=== PATIENT | female | born 1965 | race African-American/Black ===

== ENCOUNTER 2023-01-01 21:42 | Emergency (ER) | payer MEDICAID, OTHER ==
[~2023-01-01] VITALS: Ht 162.6 cm; Wt 82.7 kg
[2023-01-01 22:39] LABS: Eosinophils # (auto) 0 10 ^3/uL (0-0.8); Eosinophils % (auto) 0.1 % (0.0-7.0); Mean Corpuscular Hemoglobin 22.9 pg (28.0-32.0); Monocytes # (auto) 0.1 10 ^3/uL (0-1.3)
[2023-01-01 22:40] LABS: Basophils # (auto) 0 10 ^3/uL (0-0.2); Basophils % (auto) 0.4 % (0.0-2.0); Hematocrit 37.6 % (36.0-46.0); Hemoglobin 12.2 g/dL (12.2-16.2); Lymphocytes # (auto) 0.7 10 ^3/uL (0.4-5.4); Lymphocytes % (auto) 8.7 % (10.0-50.0); Mean Corpuscular Hgb Conc. 32.3 g/dL (32.0-36.0); Mean Corpuscular Volume 70.9 fL (80.0-100.0); Monocytes % (auto) 1.4 % (0.0-12.0); Neutrophils # (auto) 7.2 10 ^3/uL (1.6-8.6); Neutrophils % (auto) 89.4 % (37.0-80.0); Nucleated Red Blood Cells % 0.2 %; Red Blood Cells 5.31 10^6/uL (4.0-5.20); Red Cell Distribution Width 17.7 % (11.8-14.3)
[2023-01-01 22:51] LABS: Albumin 3.9 g/dL (3.4-5.0); Calcium 9.5 mg/dL (8.5-10.1); Potassium 5.4 mmol/L (3.5-5.1)
[2023-01-01 22:54] LABS: BUN/Creatinine Ratio 19.6 (10.0-20.0); Bilirubin, Total 0.4 mg/dL (0.2-1.0); Total Protein 8.2 g/dL (6.4-8.2)
[2023-01-01 23:20] VITALS: BP 143/70
== END 2023-01-01 23:29 | disposition home or self-care (01) ==
LOC: ER 21:42
DX: E11.65 Type 2 diabetes mellitus with hyperglycemia (principal); N28.9 Disorder of kidney and ureter, unspecified; I10 Essential (primary) hypertension; Z90.710 Acquired absence of both cervix and uterus; Z88.5 Allergy status to narcotic agent; Z88.8 Allergy status to other drugs, medicaments and biological substances
CPT/HCPCS: 36415; 80053; 82962; 85025

== ENCOUNTER 2025-04-21 22:03 | Inpatient (IN) | payer MEDICAID, OTHER ==
[~2025-04-21] VITALS: Ht 162.6 cm; Wt 81.7 kg
--- NOTE | 2025-04-21 22:29 | ED.PDOC ---
General HPI Comments 59-year-old female came to ER for flank pains. Patient states for the past 3 weeks she has been having intermittent episodes of left flank pains, radiating to her left lower quadrant area, described as dull, sharp intermittent. Patient also complaining of nausea and vomiting, but denies any urinary symptoms such as dysuria or gross hematuria. Chief Complaint: Flank Pain Time Seen by MD: 22:29 Reviewed notes: Nurses Notes Allergies: Coded Allergies: Hydrocodone (Verified Allergy, Unknown, 04/21/25) Information Source: Patient Mode of Arrival: Ambulatory Severity: Moderate Inability to void: Mild Timing: Weeks Duration: Intermittent Has not urinated for: Minutes Onset: Spontaneous Symptoms: Other (Left flank pain) History of: UTI Location: (L)Flank associated signs and symptoms: Abdominal Pain, Nausea, Vomiting, Flank Pain Past Medical History PAST MEDICAL HISTORY: UTI'S Surgical History: Denies all surgeries [employer] History: Denies all [employer] Hx Family History Family History: Reviewed,noncontributory to illness Social History Smoker: Non-Smoker Alcohol: Denies ETOH Use Drugs: Denies Drug Use Lives In: Home Constitutional: denies: chills, diaphoresis, fatigue, fever, malaise, sweats, weakness, others EENTM: denies: blurred vision, double vision, ear bleeding, ear discharge, ear drainage, ear pain, ear ringing, eye pain, eye redness, hearing loss, mouth pain, mouth swelling, nasal discharge, nose bleeding, nose congestion, nose pain, photophobia, tearing, throat pain, throat swelling, voice changes, others Respiratory: denies: cough, hemoptysis, orthopnea, SOB at rest, shortness of breath, SOB with excertion, stridor, wheezing, others Cardiovascular: denies: chest pain, dizzy spells, diaphoresis, Dyspnea on exertion, edema, irregular heart beat, left arm pain, lightheadedness, palpitations, PND, syncope, others Gastrointestinal: reports: abdominal pain (Left lower quadrant), nausea, vomiting; denies: abdomen distended, blood streaked bowels, constipated, diarrhea, dysphagia, difficulty swallowing, hematemesis, melena, poor appetite, poor fluid intake, rectal bleeding, rectal pain, others Genitourinary: reports: flank pain (L); denies: abnormal vagina bleeding, burning, dyspareunia, dysuria, frequency, hematuria, incontinence, pain, , vagina discharge, urgency, others Neurological: denies: dizziness, fainting, headache, left sided numbness, left sided weakness, numbness, paresthesia, pre-existing deficit, right sided numbness, right sided weakness, seizure, speech problems, tingling, tremors, weakness, others Musculoskeletal: denies: back pain, gout, joint pain, joint swelling, muscle pain, muscle stiffness, neck pain, others Integumetry: denies: bruises, change in color, change in hair/nails, dryness, laceration, lesions, lumps, rash, wounds, others Allergic/Immunocompromised: denies: Difficulty Healing, Frequent Infections, Hives, Itching, others Hematologic/Lymphatic: denies: anemia, blood clots, easy bleeding, easy bruising, swollen glands, others Endocrine: denies: excessive hunger, excessive sweating, excessive thirst, excessive urination, flushing, intolerance to cold, intolerance to heat, unexplained weight gain, unexplained weight loss, others Psychiatric: denies: anxiety, bipolar disorder, depression, hopeless, panic disorder, schizophrenia, sleepless, suicidal, others Physical Exam General Appearance: No Apparent Distress, Normal HEENT: Normal ENT Inspection, Pharynx Normal, TMs Normal Neck: Full Range of Motion, Non-Tender, Normal, Normal Inspection Respiratory: Chest Non-Tender, Lungs Clear, No Accessory Muscle Use, No Respiratory Distress, Normal Breath Sounds Cardiovascular: No Edema, No JVD, No Murmur, No Gallop, Normal Peripheral Pulses, Regular Rate/Rhythm Breast Exam: Deferred Gastrointestinal: No Organomegaly, Non Tender, No Pulsatile Mass, Normal Bowel Sounds, Soft Genitalia: Deferred Pelvic: Deferred Rectal: Deferred Extremities: No calf tenderness, Normal capillary refill, Normal inspection, Normal range of motion, Non-tender, No pedal edema Musculoskeletal : Apperance: Normal Neurologic: Alert, camp coordinator II-XII nml as Tested, No Motor Deficits, Normal Affect, Normal Mood, No Sensory Deficits Cerebellar Function: Normal Reflexes: Normal Skin: Dry, Normal Color, Warm Lymphatic: No Adenopathy Was a procedure done? Was a procedure done?: No Differential Diagnosis Kidney stone (Female): Musculoskeletal pain, Pancreatitis, Pyelonephritis, Renal failure, Strain, Urinary obstruction, Urolithiasis Urinary Problem (Female): Pyelonephritis, Urinary retention, Urolithiasis, UTI X-Ray, Labs, Meds, VS Vital Signs Date Time Temp Pulse Resp B/P (MAP) Pulse Ox O2 Delivery O2 Flow Rate FiO2 04/21/25 22:06 99.9 121 18 139/75 97 99.9 Lab Test 04/21/25 22:39 04/21/25 22:23 Range/Units White Blood Count 10.6 4.4-10.8 10^3/uL Red Blood Count 4.58 4.0-5.20 10^6/uL Hemoglobin 9.5 L 12.2-16.2 g/dL Hematocrit 29.9 L 36.0-46.0 % Mean Corpuscular Volume 65.3 L 80.0-100.0 fL Mean Corpuscular Hemoglobin 20.7 L 28.0-32.0 pg Mean Corpuscular Hemoglobin Concent 31.7 L 32.0-36.0 g/dL Red Cell Distribution Width 19.9 H 11.8-14.3 % Platelet Count 367 140-450 10^3/uL Mean Platelet Volume 7.4 6.9-10.8 fL Neutrophils (%) (Auto) 70.3 37.0-80.0 % Lymphocytes (%) (Auto) 20.0 10.0-50.0 % Monocytes (%) (Auto) 8.5 0.0-12.0 % Eosinophils (%) (Auto) 0.8 0.0-7.0 % Basophils (%) (Auto) 0.4 0.0-2.0 % Neutrophils # (Auto) 7.5 1.6-8.6 10 ^3/uL Lymphocytes # (Auto) 2.1 0.4-5.4 10 ^3/uL Monocytes # (Auto) 0.9 0-1.3 10 ^3/uL Eosinophils # (Auto) 0.1 0-0.8 10 ^3/uL Basophils # (Auto) 0 0-0.2 10 ^3/uL Nucleated Red Blood Cells 0.0 % Sodium Level 131 L 136-145 mmol/L Potassium Level 4.1 3.5-5.1 mmol/L Chloride Level 97 L 98-107 mmol/L Carbon Dioxide Level 25 20-31 mmol/L Anion Gap 9 5-15 Blood Urea Nitrogen 13 9-23 mg/dL Creatinine 1.33 H 0.550-1.02 mg/dL Glomerular Filtration Rate Calc 46 >90 mL/min BUN/Creatinine Ratio 9.8 L 10.0-20.0 Serum Glucose 163 H 74-106 mg/dL Calcium Level 9.1 8.7-10.4 mg/dL Total Bilirubin 0.7 0.2-1.0 mg/dL Aspartate Amino Transferase (AST) 30 13-40 U/L Alanine Aminotransferase (ALT) 31 7-40 U/L Alkaline Phosphatase 97 46-116 U/L Total Protein 8.3 H 5.7-8.2 g/dL Albumin 4.5 3.2-4.8 g/dL Lipase 32 12-53 U/L Urine Color Light-yellow Yellow Urine Clarity Clear Clear Urine pH 6.0 5.0-9.0 Urine Specific [place] 1.020 1.001-1.035 Urine Protein Negative Negative Urine Ketones Negative Negative Urine Blood Negative Negative /uL Urine Nitrite Negative Negative Urine Bilirubin Negative Negative Urine Urobilinogen Normal Negative mg/dL Urine Leukocyte Esterase Negative Negative /uL Urine RBC 1 0 - 4 /hpf Urine Microscopic WBC 2 0-5 /HPF Urine Squamous Epithelial Cells Few <5 /hpf Urine Bacteria Few H None Seen /hpf Urine Glucose 4+ H Normal mg/dL PROCEDURE(s): ABPL - CT AB PEL WO CON-NO ORAL OR IV REASON: left flank pain ORDER NUMBER(s): [id number], ACCESSION NUMBER(s): [id number] CLINICAL HISTORY: left flank pain TECHNIQUE: CT of the abdomen and pelvis was performed without intravenous contrast. This exam was performed according to our departmental dose optimization program. Up-to-date CT equipment and radiation dose reduction techniques are utilized as appropriate. 8.19 CTDI: 8.19 DLP: 472.49 WID: COMPARISON: None FINDINGS: Lower Thorax: Mild calcified coronary artery disease. Normal-sized heart. Lung bases are clear. Liver and Biliary system: Unremarkable. Spleen: Unremarkable. Adrenal Glands and Kidneys: Unremarkable. Pancreas and Retroperitoneum: Unremarkable. Aorta and Major Vessels: Aortoiliac vessels are normal in caliber containing mild calcified atherosclerotic plaque. Bowel, Mesentery and Peritoneal space: Normal caliber small and large bowel. Normal appendix. Circumferential wall thickening of the distal descending colon with pericolonic soft tissue stranding. There is a thick-walled outpouching or collection to the left of the descending colon measuring 3.3 x 3.7 x 5.2 cm on series 2, image 53 and series 601, image 46. There are mildly prominent lymph nodes adjacent to this inflamed segment of colon. No free air Pelvis: Unremarkable. Abdominal wall and Osseous Structures: Multilevel lower thoracic and lumbar spondylosis. No destructive osseous lesion small fat containing umbilical hernia. IMPRESSION: Circumferential wall thickening of a segment of distal descending colon with pericolonic stranding. There is a thick walled outpouching or collection to the left of the descending colon measuring up to 5.2 cm. This could reflect pericolonic abscess associated with acute diverticulitis or colitis. A mass is also a consideration though less likely. Close follow-up CT recommended after appropriate course of medical therapy. Alternatively colonoscopy recommended if not already recently performed. Mild calcified coronary artery disease visualized. Time of 1ST Reevaluation: 22:27 Reevaluation 1ST: Unchanged Patient Education/Counseling: Diagnosis, Treatment Family Education/Counseling: No Family Present SEPSIS Sepsis Screen Date sepsis recognized/suspect: Apr 21, 2025 Time Sepsis recognized/suspect: 2205 Recent Procedure: No On Antibiotic Therapy: No Respiratory Rate >20: No Heart Rate >90: Yes Temp<36 C (96.8 F) or >38.3 C: No SBP <90 or MAP <65 mmHG: No New Acute Mental Status Change: No Is the patient on CPAP, BIPAP,: No Physician Orders Ct Ab Pel Wo Con-No Oral Or Iv (04/21/25 22:23) Blood Culture (04/21/25 23:40) Lactic Acid W/ Reflex Order (04/21/25 23:40) Ceftriaxone Ivpb Rocephin (04/21/25 23:45) Metronidazole Ivpb Flagyl (04/21/25 23:45) Vital Signs Date Time Temp Pulse Resp B/P (MAP) Pulse Ox O2 Delivery O2 Flow Rate FiO2 04/21/25 22:06 99.9 121 18 139/75 97 99.9 Laboratory Tests Test 04/21/25 22:39 White Blood Count 10.6 10^3/uL (4.4-10.8) Departure 1 Departure Time of Disposition: 23:41 Impression: Primary Impression: Diverticulitis Additional Impression: Pericolonic abscess due to diverticulitis Disposition: ADMITTED INPATIENT Admit to: Med Surg Condition: Critical Comments 59-year-old female with complaints of left lower quadrant pain and left flank pain for last couple of weeks but now getting worse over the last few days. Her lab results show a white blood cell count upper limits of normal at 10.6. Mild anemia with H and H of 9.5 and 30. Sodium is low at 131. Creatinine is elevated 1.33. CT of the abdomen and pelvis was obtained and shows diverticulitis and likely pericolonic abscess related to the diverticulitis. I ordered blood cultures and a lactic acid and I ordered IV Rocephin and Flagyl antibiotics. Patient will need to be admitted for diverticulitis with pericolonic abscess Critical Care Note Critical Care Time?: Yes (35 min-critical care time only) Critical care comment: Total critical care time: Approximately 36 minutes Due to a high probability of clinically significant, life threatening deterioration, the patient required my highest level of preparedness to intervene emergently and I personally spent this critical care time directly and personally managing the patient. This critical care time included obtaining a history; examining the patient; pulse oximetry; ordering and review of studies; arranging urgent treatment with development of a management plan; evaluation of patient's response to treatment; frequent reassessment; and, discussions with other providers. This critical care time was performed to assess and manage the high probability of imminent, life-threatening deterioration that could result in multi-organ failure. It was exclusive of separately billable procedures and treating other patients. Stability Stability form required: No Heart Score Heart Score: Heart Score Response (Comments) Value History N/A 0 EKG N/A 0 Age N/A 0 Risk Factors N/A 0 Troponin N/A 0 Total 0 I personally scribed for AUNDREA KERN MD ([email or web address]) on 04/21/25 at 22:29. Electronically submitted by Link Conway ([facility] [employer]). I personally scribed for AUNDREA KERN MD ([email or web address]) on 04/21/25 at 23:35. Electronically submitted by Link Conway ([email or web address]). AUNDREA KERN MD Apr 21, 2025 22:29
[2025-04-21 22:35] LABS: Urine Protein, UAD Negative (Negative)
[2025-04-21 22:55] LABS: Hemoglobin 9.5 g/dL (12.2-16.2); Mean Corpuscular Volume 65.3 fL (80.0-100.0); Nucleated Red Blood Cells % 0.0 %
[2025-04-21 22:56] LABS: Hematocrit 29.9 % (36.0-46.0); Mean Corpuscular Hemoglobin 20.7 pg (28.0-32.0)
[2025-04-21 23:14] LABS: Alanine Aminotransferase 31 U/L (7-40); Albumin 4.5 g/dL (3.2-4.8); Alkaline Phosphatase 97 U/L (46-116); Anion Gap 9 (5-15); BUN/Creatinine Ratio 9.8 (10.0-20.0); Bilirubin, Total 0.7 mg/dL (0.2-1.0); Blood Urea Nitrogen 13 mg/dL (9-23); Calcium 9.1 mg/dL (8.7-10.4); Carbon Dioxide 25 mmol/L (20-31); Lipase 32 U/L (12-53); Potassium 4.1 mmol/L (3.5-5.1)
[2025-04-21 23:20] LABS: Chloride 97 mmol/L (98-107); Glucose 163 mg/dL (74-106); Sodium 131 mmol/L (136-145); Total Protein 8.3 g/dL (5.7-8.2)
--- NOTE | 2025-04-21 23:25 | DVH ---
CLINICAL HISTORY: left flank pain TECHNIQUE: CT of the abdomen and pelvis was performed without intravenous contrast. This exam was per formed according to our departmental dose optimization program. Up-to-date CT equipment and radiation dose reduction techniques are utilized as appropriate. 8.19 CTDI: 8.19 DLP: 472.49 WID: COMPARISON: None FINDINGS: Lower Thorax: Mild calcified coronary artery disease. Normal-sized heart. Lung bases are clear. Liver and Biliary system: Unremarkable. Spleen: Unremarkable. Adrenal Glands and Kidneys: Unremarkable. Pancreas and Retroperitoneum: Unremarkable. Aorta and Major Vessels: Aortoiliac vessels are normal in caliber containing mild calcified atheroscl erotic plaque. Bowel, Mesentery and Peritoneal space: Normal caliber small and large bowel. Normal appendix. Circumf erential wall thickening of the distal descending colon with pericolonic soft tissue stranding. There is a thick-walled outpouching or collection to the left of the descending colon measuring 3.3 x 3.7 x 5.2 cm on series 2, image 53 and series 601, image 46. There are mildly prominent lymph nodes adjac ent to this inflamed segment of colon. No free air Pelvis: Unremarkable. Abdominal wall and Osseous Structures: Multilevel lower thoracic and lumbar spondylosis. No destructi ve osseous lesion small fat containing umbilical hernia. IMPRESSION: Circumferential wall thickening of a segment of distal descending colon with pericolonic stranding. T here is a thick walled outpouching or collection to the left of the descending colon measuring up to 5.2 cm. This could reflect pericolonic abscess associated with acute diverticulitis or colitis. A mas s is also a consideration though less likely. Close follow-up CT recommended after appropriate course of medical therapy. Alternatively colonoscopy recommended if not already recently performed. Mild calcified coronary artery disease visualized.
[2025-04-22] VITALS (7 sets, daily range): BP systolic 120–140; BP diastolic 67–81; PULSE 94–108; RESP 16–20; TEMP 97.7–100.3; O2SAT 96–99
[2025-04-22] MEDS ORDERED: NITROGLYCERIN 0.4 MG SL TAB SL PRN (01:15)
[2025-04-22] MEDS ORDERED: MORPHINE SULFATE INJ 2 MG/ml SYRG IV PRN (01:15)
[2025-04-22] MEDS ORDERED: HYDROcodone-ACET 5/325MG TAB PO PRN (01:15)
[2025-04-22] MEDS ORDERED: DEXTROSE (50%) 50ML SYRG IV PRN (01:30)
--- NOTE | 2025-04-22 01:32 | DVHHPRES ---
History of Present Illness Resident Creating Document: DEQUAN MERINO RESIDENT History of Present Illness A 59-year-old female with a history of recurrent UTIs , hypertension, microcytic anemia, PUD/GERD, CKD, diabetes mellitus on insulin, diabetic neuropathy, insomnia, dyslipidemia, possible CAD, presented to the ER via ambulatory arrival at 22:29 with moderate, intermittent left flank pain ongoing for the past three weeks. The pain radiates to the left lower quadrant and is described as dull and sharp in nature. She reports associated symptoms of abdominal pain, nausea, and vomiting, but denies any urinary complaints such as dysuria or gross hematuria. Onset was spontaneous, and she notes mild inability to void for several minutes prior to arrival. She denies any surgical or gynecological history and has a verified allergy to hydrocodone. Information was obtained directly from the patient and reviewed alongside nursing notes. Family History: None (non contributory ) Smoke: No ALCOHOL: none Drugs: None Lives: with Family Domestic Violence: Neg Review of Systems Constitutional: Yes: Malaise; No: Fever, Chills, Sweats, Weakness, Other Eyes: No: Pain, Vision change, Conjunctivae inflammation, Eyelid inflammation, Other, Redness ENT: No: Ear pain, Ear discharge, Nose pain, Nose discharge, Nose congestion, Mouth pain, Mouth swelling, Throat pain, Throat swelling, Other Respiratory: No: Cough, Dry, Shortness of breath, SOB with excertion, Wheezing, Hemoptysis, Pleuritic Pain, Sputum, Wheezing, Other Cardiovascular: No: Chest Pain, Palpitations, Orthopnea, Paroxysmal Noc. Dyspnea, Edema, Lt Headedness, Other Gastrointestinal: Nausea, Vomiting, Abdominal Pain, Constipation; No: Diarrhea, Melena, Hematochezia, Other Genitourinary: No Dysuria, No Frequency, No Incontinence, No Hematuria, No Retention, No Other Musculoskeletal: No: other, neck pain, shoulder pain, arm pain, back pain, hand pain, leg pain, foot pain Skin: No: Rash, Lesions, Jaundice, Bruising, Other Neurological: No: Weakness, Numbness, Incoordination, Change in speech, Confusion, Seizures, Other Allergies: Coded Allergies: Hydrocodone (Verified Allergy, Unknown, 04/21/25) Medications Current Medications Medications Dose Ordered Sig/Gladys Route Start Time Stop Time Status Last Admin Dose Admin Sodium Chloride 1,000 ml @ 120 mls/hr Q8H20M IV 04/22/25 01:15 Acetaminophen/ Hydrocodone Bitart 1 tab Q4HP PRN PO 04/22/25 01:15 UNV Ondansetron HCl 4 mg Q4HP PRN IV 04/22/25 01:15 Enoxaparin Sodium 40 mg DAILY SC 04/22/25 10:00 Acetaminophen 650 mg Q6HP PRN PO 04/22/25 01:15 Morphine Sulfate 2 mg Q4HPRN PRN IV 04/22/25 01:15 UNV Nitroglycerin 0.4 mg Q5MINP PRN SL 04/22/25 01:15 Morphine Sulfate 2 mg Q30M PRN IV 04/22/25 01:15 UNV Ciprofloxacin 200 ml @ 200 mls/hr BID IV 04/22/25 08:00 Metronidazole 100 ml @ 100 mls/hr Q8HR IV 04/22/25 08:00 Exam Vital Signs Vital Signs Date Time Temp Pulse Resp B/P (MAP) Pulse Ox O2 Delivery O2 Flow Rate FiO2 04/21/25 22:06 99.9 121 18 139/75 97 99.9 General Appearance: Alert, Oriented X3, mild distress HEENT: Atraumatic, Mucous membr. moist/pink Respiratory: Clear to auscultation, Normal air movement (in room air ) Cardiovascular: Regular rate, Normal S1, Normal S2, No murmurs Abdominal: Normal bowel sounds, Soft, Other (left lower quadrant tenderness, no gurading, rovsing -ve ) Extremities: No clubbing, No cyanosis, No edema, Normal pulses, No tenderness/swelling Skin: No rashes, No breakdown, No significant lesion Neuro: Normal speech, Strength at 5/5 X4 ext, Normal tone, Sensation intact Psych/Mental Status: Mental status NL, Mood NL Labs/Xrays Labs Test 04/21/25 23:52 04/21/25 22:39 04/21/25 22:23 Range/Units Lactic Acid Level 1.1 0.4-2.0 mmol/L White Blood Count 10.6 4.4-10.8 10^3/uL Red Blood Count 4.58 4.0-5.20 10^6/uL Hemoglobin 9.5 L 12.2-16.2 g/dL Hematocrit 29.9 L 36.0-46.0 % Mean Corpuscular Volume 65.3 L 80.0-100.0 fL Mean Corpuscular Hemoglobin 20.7 L 28.0-32.0 pg Mean Corpuscular Hemoglobin Concent 31.7 L 32.0-36.0 g/dL Red Cell Distribution Width 19.9 H 11.8-14.3 % Platelet Count 367 140-450 10^3/uL Mean Platelet Volume 7.4 6.9-10.8 fL Neutrophils (%) (Auto) 70.3 37.0-80.0 % Lymphocytes (%) (Auto) 20.0 10.0-50.0 % Monocytes (%) (Auto) 8.5 0.0-12.0 % Eosinophils (%) (Auto) 0.8 0.0-7.0 % Basophils (%) (Auto) 0.4 0.0-2.0 % Neutrophils # (Auto) 7.5 1.6-8.6 10 ^3/uL Lymphocytes # (Auto) 2.1 0.4-5.4 10 ^3/uL Monocytes # (Auto) 0.9 0-1.3 10 ^3/uL Eosinophils # (Auto) 0.1 0-0.8 10 ^3/uL Basophils # (Auto) 0 0-0.2 10 ^3/uL Nucleated Red Blood Cells 0.0 % Sodium Level 131 L 136-145 mmol/L Potassium Level 4.1 3.5-5.1 mmol/L Chloride Level 97 L 98-107 mmol/L Carbon Dioxide Level 25 20-31 mmol/L Anion Gap 9 5-15 Blood Urea Nitrogen 13 9-23 mg/dL Creatinine 1.33 H 0.550-1.02 mg/dL Glomerular Filtration Rate Calc 46 >90 mL/min BUN/Creatinine Ratio 9.8 L 10.0-20.0 Serum Glucose 163 H 74-106 mg/dL Calcium Level 9.1 8.7-10.4 mg/dL Total Bilirubin 0.7 0.2-1.0 mg/dL Aspartate Amino Transferase (AST) 30 13-40 U/L Alanine Aminotransferase (ALT) 31 7-40 U/L Alkaline Phosphatase 97 46-116 U/L Total Protein 8.3 H 5.7-8.2 g/dL Albumin 4.5 3.2-4.8 g/dL Lipase 32 12-53 U/L Urine Color Light-yellow Yellow Urine Clarity Clear Clear Urine pH 6.0 5.0-9.0 Urine Specific [place] 1.020 1.001-1.035 Urine Protein Negative Negative Urine Ketones Negative Negative Urine Blood Negative Negative /uL Urine Nitrite Negative Negative Urine Bilirubin Negative Negative Urine Urobilinogen Normal Negative mg/dL Urine Leukocyte Esterase Negative Negative /uL Urine RBC 1 0 - 4 /hpf Urine Microscopic WBC 2 0-5 /HPF Urine Squamous Epithelial Cells Few <5 /hpf Urine Bacteria Few H None Seen /hpf Urine Glucose 4+ H Normal mg/dL SEPSIS Sepsis Screen Date sepsis recognized/suspect: Apr 21, 2025 Time Sepsis recognized/suspect: 2205 Recent Procedure: No On Antibiotic Therapy: No Respiratory Rate >20: No Heart Rate >90: Yes Temp<36 C (96.8 F) or >38.3 C: No SBP <90 or MAP <65 mmHG: No New Acute Mental Status Change: No Is the patient on CPAP, BIPAP,: No Physician Orders Ct Ab Pel Wo Con-No Oral Or Iv (04/21/25 22:23) Blood Culture (04/21/25 23:40) Saline Lock (04/22/25 00:05) Admit (04/22/25 01:03) Allergies (04/22/25 01:03) Code Status (04/22/25 01:03) Sodium Chloride 0.9% (04/22/25 01:15) Hydrocodone-Acet 5/325mg Tab ([place] 5/32 (04/22/25 01:15) Ondansetron Hcl (Zofran) (04/22/25 01:15) Enoxaparin Sodium (Lovenox) (04/22/25 10:00) Complete Blood Count (04/23/25 04:00) Comprehensive Metabolic Panel (04/23/25 04:00) Npo (Nothing By Mouth) Diet (04/22/25 Breakfast) Echo 2d Mode Cardiac Dop (04/22/25 01:03) Condition: Fair (04/22/25 01:03) Acetaminophen Tablet (Tylenol Tablet) (04/22/25 01:15) Morphine Sulfate Injection (04/22/25 01:15) Nitroglycerin Sublingual (Ntrostat Subli (04/22/25 01:15) Morphine Sulfate Injection (04/22/25 01:15) Oxygen By Nasal Cannula (04/22/25 01:03) Stat Ekg For Chest Pain (04/22/25 01:03) Notify Of Changes From Base (04/22/25 01:03) [employer] For 24 Hours (04/22/25 01:03) Emergency Dysrhythmia Protocol (04/22/25 01:03) Rhythm Strips Once Every Shift (04/22/25 01:03) Lactated Ringer's (04/22/25 01:15) Ciprofloxacin 400mg/200ml (Cipro Iv) (04/22/25 08:00) Metronidazole 500mg/100ml (Flagyl 500mg/ (04/22/25 08:00) Intake And Output (04/22/25 01:13) Intake And Output (04/22/25 01:13) B-Type Natriuretic Peptide (04/22/25 01:15) Clostridium Difficile Toxin (04/22/25 01:15) Ova & Parasite Exam (04/22/25 01:15) Stool Bacterial Culture (04/22/25 01:15) Stool Occult Blood (04/22/25 01:15) Gram Stain (04/22/25 01:15) Stool Wbc (04/22/25 01:15) Prothrombin Time W/ Inr (04/22/25 01:24) Drug Screen (04/22/25 01:24) Insulin Lantus (Glargine) (Lantus) (04/22/25 10:00) Glucose Blood (Accu-Chek Comfort Curve T (04/22/25 07:00) Mild Sliding Scale (04/22/25 07:00) Dextrose 50% Syringe (04/22/25 01:30) * Surgical Consult (04/22/25 ) Vital Signs Date Time Temp Pulse Resp B/P (MAP) Pulse Ox O2 Delivery O2 Flow Rate FiO2 04/21/25 22:06 99.9 121 18 139/75 97 99.9 Laboratory Tests Test 04/21/25 22:39 04/21/25 23:52 White Blood Count 10.6 10^3/uL (4.4-10.8) Lactic Acid Level 1.1 mmol/L (0.4-2.0) Medications Medications Dose Ordered Sig/Gladys Route Start Time Stop Time Status Last Admin Dose Admin Ceftriaxone Sodium 50 ml @ 100 mls/hr ONCE ONCE IV 04/21/25 23:45 04/22/25 00:14 DC 04/22/25 00:21 100 MLS/HR Metronidazole 100 ml @ 100 mls/hr ONCE ONCE IV 04/21/25 23:45 04/22/25 00:44 DC 04/22/25 00:35 100 MLS/HR Assessment/Plan Assessment/Plan #1 sepsis likely due to intra-abdominal infection, lactate negative: sepsis bundle to do, ciprofloxacin and flaggyl, restricted fluid transfusion due to unknown EF/known heart failure. Close input output. #2 Microcytic anemia, likely iron-deficiency, check iron panel: On oral iron supplement, if needed IV iron supplement in-hospital. 325 iron tablet daily. #3 Mild hyponatremia 131, likely mild hypervolume: follow up labs #4 likely PETERSON due to VMN, underlying CKD status unknown, no baseline, follows Nephrology Dr. Dennison: avoid nephrotoxics, mild hydration with close monitoring #5 Acute descending colitis: mild abdominal tenderness, Circumferential wall thickening of a segment of distal descending colon with kimberly colonic stranding, noted in CT, stool workup, C diff, toxin workup, interval abdominal examination. #6 acute diverticulitis, associated sepsis: IV antibiotics, NPO, lifestyle modification, outpatient follow up with GI with interval colonoscopy /as needed. #7 Complicated diverticulitis, Kimberly diverticular abscess: There is a thick walled outpouching or collection to the left of the descending colon measuring up to 5.2 cm kimberly colonic abscess associated with acute diverticulitis or colitis , interval CT abdomen with contrast, after 1 course of antibiotics. If clinically worsens, consider surgical consult, abscess drainage. Check PT/INR. NPO. #8 possible underlying CAD, coronary calcification noted, no cardiac symptoms noted. #9 known primary hypertension: Home medications reviewed. target BP 130/90, given sepsis hold meds. #10 possible underlying congestive heart failure: No echo on file, check echo in-hospital, as needed diuresis/GDM T as tolerated, spironolactone 25, losartan 50 mg, Farxiga 10, diltiazem, we will avoid diltiazem. #11 GERD/PUD, on omeprazole daily: iv famotidine continue #12 diabetes mellitus: On insulin at home. HbA1c unknown, check. #13 Insomnia trazodone 50 mg bedtime: continue when tolerated oral meds. #14 Dyslipidemia on atorvastatin 40 mg daily: continue when tolerated. #15 Diabetic neuropathy /chronic back pain with methocarbamol 500 mg tab t.i.d. p.r.n., gabapentin 400 mg t.i.d., [place] 10/325: continue multimodal pain mx. #16 History of recurrent UTI: The at present admission no urinary symptoms, UA unremarkable. #17 Lumbar spondylosis. No destructive osseous lesion noted. #18 Small fat containing umbilical hernia, uncomplicated. Please restart home meds when orally tolerated. PUD prophylaxis: Famotidine, avoid PPI till rule out C. diff. DVT prophylaxis: Levonox 40mg sc Barriers to discharge: Medical diagnosis and management in progress. PCP: Dr. La Specialist Relevant To Admission: Nephrology, consulted not needed at this point. Based on the clinical progression, general surgery consult. Case discussed with Dr. House. Code Status: Full Code. Discussion on plan of care and goals of care needed total 27 minutes bedside. Plan discussed with: Patient, Other (primary team, RN) My Orders Orders - DEQUAN MERINO RESIDENT Procedure Category Date Status Time Admit ADMIT 04/22/25 Transmitted 01:03 Allergies KATRIN 04/22/25 In Process 01:03 Code Status CODE 04/22/25 Transmitted 01:03 Sodium Chloride 0.9% PHA 04/22/25 In Process 01:15 Hydrocodone-Acet PHA 04/22/25 Pending 5/325mg Tab ([place] 01:15 Ondansetron Hcl PHA 04/22/25 In Process (Zofran) 01:15 Enoxaparin Sodium PHA 04/22/25 In Process (Lovenox) 10:00 Complete Blood Count LAB 04/23/25 Verified 04:00 Comprehensive LAB 04/23/25 Verified Metabolic Panel 04:00 Npo (Nothing By DIET 04/22/25 Transmitted Mouth) Diet Breakfast Echo 2d Mode Cardiac US 04/22/25 Logged DOP 01:03 Condition: Fair KATRIN 04/22/25 In Process 01:03 Acetaminophen Tablet PHA 04/22/25 In Process (Tylenol Tablet) 01:15 Morphine Sulfate PHA 04/22/25 Pending Injection 01:15 Nitroglycerin PHA 04/22/25 In Process Sublingual (Ntrostat 01:15 Morphine Sulfate PHA 04/22/25 Pending Injection 01:15 Oxygen By Nasal RT 04/22/25 Transmitted Cannula 01:03 Stat Ekg For Chest [facility] 04/22/25 In Process Pain 01:03 Notify Of Changes KATRIN 04/22/25 In Process From Base 01:03 [employer] For [facility] 04/22/25 In Process 24 Hours 01:03 Emergency Dysrhythmia [facility] 04/22/25 In Process Protocol 01:03 Rhythm Strips Once KATRIN 04/22/25 In Process Every Shift 01:03 Lactated Ringer's PHA 04/22/25 In Process 01:15 Ciprofloxacin PHA 04/22/25 In Process 400mg/200ml (Cipro Iv) 08:00 Metronidazole PHA 04/22/25 In Process 500mg/100ml (Flagyl 08:00 Intake And Output KATRIN 04/22/25 In Process 01:13 Intake And Output KATRIN 04/22/25 In Process 01:13 B-Type Natriuretic LAB 04/22/25 In Process Peptide 01:15 Clostridium Difficile [facility] 04/22/25 Logged Toxin 01:15 Ova & Parasite Exam [facility] 04/22/25 Logged 01:15 Stool Bacterial [facility] 04/22/25 Logged Culture 01:15 Stool Occult Blood LAB 04/22/25 Logged 01:15 Gram Stain [facility] 04/22/25 Logged 01:15 Stool Wbc LAB 04/22/25 Logged 01:15 Prothrombin Time W/ LAB 04/22/25 Transmitted INR 01:24 Drug Screen LAB 04/22/25 Transmitted 01:24 Insulin Lantus PHA 04/22/25 Transmitted (Glargine) (Lantus) 10:00 Glucose Blood PHA 04/22/25 Transmitted (Accu-Chek Comfort 07:00 Mild Sliding Scale PHA 04/22/25 Transmitted 07:00 Dextrose 50% Syringe PHA 04/22/25 Transmitted 01:30 * Surgical Consult CONS 04/22/25 Transmitted Date of Service: Apr 22, 2025 Billing Provider: VITO HOUSE MD Common Visit Codes: [id number] INP/OBS CARE (HIGH) Secondary Visit Codes: [id number] CARE PLAN 30 MINUTES DEQUAN MERINO RESIDENT Apr 22, 2025 01:32
[2025-04-22 01:53] LABS: INR 1.01 (0.9-1.15); Prothrombin Time 10.7 sec (9.3-11.8)
[2025-04-22] MEDS: LACTATED RINGER'S 1,000 ML IV ONE (03:42)
[2025-04-22] MEDS: SODIUM CHLORIDE 0.9% 1,000 ML IV SCH (03:57)
[2025-04-22] MEDS ORDERED: CIPROFLOXACIN 400MG/200ML 200 ML IV SCH ×2 (04:00→08:00)
[2025-04-22] MEDS ORDERED: DILT1TAB4 PO (05:17)
[2025-04-22] MEDS ORDERED: NALO1TAB4 PO (05:17)
[2025-04-22] MEDS ORDERED: SPIR25TA8 PO (05:17)
[2025-04-22] MEDS ORDERED: LOSA-534 PO (05:17)
[2025-04-22] MEDS ORDERED: ATOR-507 PO (05:17)
[2025-04-22] MEDS ORDERED: PERCOT PO (05:17)
[2025-04-22] MEDS ORDERED: DULA3INJ SC (05:19)
[2025-04-22] MEDS ORDERED: INSU1INJ19 SC (05:19)
[2025-04-22] MEDS ORDERED: GABA-1251 PO (05:19)
[2025-04-22] MEDS ORDERED: FURO40TA4 PO (05:19)
[2025-04-22] MEDS ORDERED: DAPA1TAB4 PO (05:19)
[2025-04-22] MEDS ORDERED: METH-1181 PO (05:19)
[2025-04-22] MEDS: LACTATED RINGER'S 500 ML IV ONE (06:00)
[2025-04-22] MEDS: ACCU-CHEK COMFORT CURVE STRIP VI SCH (06:52)
[2025-04-22] MEDS: InsuLIN REG 1unit/0.01ml Soln (100units/ml) SC SCH (06:53)
--- NOTE | 2025-04-22 09:08 | DVH ---
RENAL ULTRASOUND History: recurrent renal stones, rule out Comparison: None Technique: Multiple real-time sonographic images of the kidney and bladder were obtained in conjuncti on with Doppler imaging. Findings: The right kidney measures 10.3 cm and demonstrates no evidence of hydronephrosis, perinephric fluid c ollection, or shadowing stone. The left kidney measures 11.1 cm and demonstrates no evidence of hydronephrosis, perinephric fluid co llection, or shadowing stone. Urinary bladder: Contracted, limiting evaluation. Impression: No hydronephrosis.
[2025-04-22] MEDS: MORPHINE SULFATE INJ 2 MG/ml SYRG IV ONE (09:21)
--- NOTE | 2025-04-22 09:38 | DVHINCON2 ---
Date of service: Apr 22, 2025 Family History: Hypertension G8 MOTHER G8 FATHER, Allergies: Coded Allergies: Hydrocodone (Verified Allergy, Unknown, 04/21/25) Home Meds Reported Medications Dapagliflozin Propanediol (Farxiga) 10 Mg Tab, 1 TAB PO DAILY 04/22/25 Dulaglutide (Trulicity) 3 Mg/0.5 Ml Inj, 3 MG SC QWEEKLY 04/22/25 Insulin Glargine (Basaglar Kwikpen) 100 Unit/Ml Inj, 20 UNIT SC QAM 04/22/25 Furosemide (Furosemide) 40 Mg Tab, 1 TAB PO DAILY 04/22/25 Gabapentin (Gabapentin) 400 Mg Cap, 1 CAP PO TID 04/22/25 Methocarbamol (Methocarbamol) 500 Mg Tab, 1 TAB PO TID PRN for muscle spasm 04/22/25 Oxycodone W/ Acetaminophen (Percocet 5/325MG) 1 Tab Tb, PO Q8HPRN PRN for PAIN SCALE 7 THRU 10, TAB PERCOCET 10/325MG PO Q8HR PRN FOR PAIN 04/22/25 Naloxegol Oxalate (Movantik) 25 Mg Tab, 1 TAB PO DAILY 04/22/25 Spironolactone (Spironolactone) 25 Mg Tab, 1 TAB PO DAILY 04/22/25 Atorvastatin Calcium (Lipitor) 40 Mg Tab, 1 TAB PO DAILY 04/22/25 Losartan Potassium (Losartan Potassium) 50 Mg Tab, 1 TAB PO DAILY 04/22/25 Diltiazem Hcl (Cardizem La) 240 Mg Tab, 1 TAB PO DAILY 04/22/25 Current Medications Current Medications Medications (Trade) Dose Ordered Sig/Gladys Route PRN Reason Start Time Stop Time Status Last Admin Sodium Chloride 1,000 ml @ 120 mls/hr Q8H20M IV 04/22/25 01:15 04/22/25 06:01 DC Acetaminophen/ Hydrocodone Bitart ([place] 5/325MG Tab) 1 tab Q4HP PRN PO MODERATE PAIN (4-6 PAIN SCALE) 04/22/25 01:15 Hold Ondansetron HCl (Zofran) 4 mg Q4HP PRN IV NAUSEA / VOMITING 04/22/25 01:15 Enoxaparin Sodium (Lovenox) 40 mg DAILY SC 04/22/25 10:00 Acetaminophen (Tylenol Tablet) 650 mg Q6HP PRN PO PAIN SCALE 1-3 OR TEMP>100.4 04/22/25 01:15 Morphine Sulfate 2 mg Q4HPRN PRN IV SEVERE PAIN (7-10 PAIN SCALE) 04/22/25 01:15 Nitroglycerin (Ntrostat Sublingual) 0.4 mg Q5MINP PRN SL FOR CHEST PAIN 04/22/25 01:15 Morphine Sulfate 2 mg Q30M PRN IV FOR CHEST PAIN 04/22/25 01:15 Ciprofloxacin 200 ml @ 200 mls/hr BID IV 04/22/25 04:00 04/22/25 01:22 DC Ciprofloxacin 200 ml @ 200 mls/hr BID IV 04/22/25 08:00 04/22/25 08:19 DC Metronidazole 100 ml @ 100 mls/hr Q8HR IV 04/22/25 08:00 04/22/25 08:23 Insulin Glargine (Lantus) 10 units DAILY@1000 SC 04/22/25 10:00 Diagnostic Test (Pha) (Accu-Chek Comfort Curve T) 1 strip ACHS 04/22/25 07:00 04/22/25 06:52 Insulin Human Regular (InsuLIN R) ACHS SC 04/22/25 07:00 Dextrose 50 ml UD PRN IV Blood Sugar LESS THAN 60 04/22/25 01:30 Ciprofloxacin 200 ml @ 200 mls/hr BID IV 04/22/25 10:00 Vital Signs Vital Signs Date Time Temp Pulse Resp B/P (MAP) Pulse Ox O2 Delivery O2 Flow Rate FiO2 04/22/25 09:21 104 20 121/81 04/22/25 09:00 99.0 98 99.0 04/22/25 04:00 Room Air* 0 21 Labs/Diagnostic Data Labs Test 04/22/25 06:17 04/21/25 23:52 04/21/25 22:39 04/21/25 22:23 Range/Units POC Glucose 149 H 70-106 mg/dl Lactic Acid Level 1.1 0.4-2.0 mmol/L White Blood Count 10.6 4.4-10.8 10^3/uL Red Blood Count 4.58 4.0-5.20 10^6/uL Hemoglobin 9.5 L 12.2-16.2 g/dL Hematocrit 29.9 L 36.0-46.0 % Mean Corpuscular Volume 65.3 L 80.0-100.0 fL Mean Corpuscular Hemoglobin 20.7 L 28.0-32.0 pg Mean Corpuscular Hemoglobin Concent 31.7 L 32.0-36.0 g/dL Red Cell Distribution Width 19.9 H 11.8-14.3 % Platelet Count 367 140-450 10^3/uL Mean Platelet Volume 7.4 6.9-10.8 fL Neutrophils (%) (Auto) 70.3 37.0-80.0 % Lymphocytes (%) (Auto) 20.0 10.0-50.0 % Monocytes (%) (Auto) 8.5 0.0-12.0 % Eosinophils (%) (Auto) 0.8 0.0-7.0 % Basophils (%) (Auto) 0.4 0.0-2.0 % Neutrophils # (Auto) 7.5 1.6-8.6 10 ^3/uL Lymphocytes # (Auto) 2.1 0.4-5.4 10 ^3/uL Monocytes # (Auto) 0.9 0-1.3 10 ^3/uL Eosinophils # (Auto) 0.1 0-0.8 10 ^3/uL Basophils # (Auto) 0 0-0.2 10 ^3/uL Nucleated Red Blood Cells 0.0 % Prothrombin Time 10.7 9.3-11.8 sec Prothrombin Time INR 1.01 0.9-1.15 Sodium Level 131 L 136-145 mmol/L Potassium Level 4.1 3.5-5.1 mmol/L Chloride Level 97 L 98-107 mmol/L Carbon Dioxide Level 25 20-31 mmol/L Anion Gap 9 5-15 Blood Urea Nitrogen 13 9-23 mg/dL Creatinine 1.33 H 0.550-1.02 mg/dL Glomerular Filtration Rate Calc 46 >90 mL/min BUN/Creatinine Ratio 9.8 L 10.0-20.0 Serum Glucose 163 H 74-106 mg/dL Calcium Level 9.1 8.7-10.4 mg/dL Total Bilirubin 0.7 0.2-1.0 mg/dL Aspartate Amino Transferase (AST) 30 13-40 U/L Alanine Aminotransferase (ALT) 31 7-40 U/L Alkaline Phosphatase 97 46-116 U/L B-Type Natriuretic Peptide 8.76 0-100 pg/mL Total Protein 8.3 H 5.7-8.2 g/dL Albumin 4.5 3.2-4.8 g/dL Lipase 32 12-53 U/L Urine Color Light-yellow Yellow Urine Clarity Clear Clear Urine pH 6.0 5.0-9.0 Urine Specific [place] 1.020 1.001-1.035 Urine Protein Negative Negative Urine Ketones Negative Negative Urine Blood Negative Negative /uL Urine Nitrite Negative Negative Urine Bilirubin Negative Negative Urine Urobilinogen Normal Negative mg/dL Urine Leukocyte Esterase Negative Negative /uL Urine RBC 1 0 - 4 /hpf Urine Microscopic WBC 2 0-5 /HPF Urine Squamous Epithelial Cells Few <5 /hpf Urine Bacteria Few H None Seen /hpf Urine Glucose 4+ H Normal mg/dL Assessment 59 YEAR OLD FEMALE REPORTS SEVERAL WEEKS OF CONSTIPATION TEATED WITH LAXATIVES THEN DEVELOPING LEFT LOWER QUADRANT ABDOMINAL PAIN ASSOCIATED WITH NAUSEA AND VOMITING, CT SCAN SHOWS DESCENDING COLON ASSOCIATED MASS VS ABSCESS, SHE HAS A SOFT, NON DISTENDED ABDOMEN , WILL REQUEST GI CONSULT AND ATTEMPT AT ct GUIDED ASPIRATION OF WHAT IS MOST LIKELY AN ABSCESS ASSOCIATED WITH DESCENDING COLON DIVERTICULITIS. THERE IS NO NEED FOR AN EMERGENCY SURGICAL INTERVENTION, I WILL FOLLOW Plan discussed with: Patient COURTNEY BOYD MD Apr 22, 2025 09:38
[2025-04-22] MEDS: CIPROFLOXACIN 400MG/200ML 200 ML IV SCH (09:51)
[2025-04-22] MEDS: ENOXAPARIN SOD 40 MG/0.4 ML SYRINGE SC SCH (09:51)
[2025-04-22] MEDS: INSULIN LANTUS (GLARGINE) 1 /0.01ml (100units/ml) SC SCH (10:00)
--- NOTE | 2025-04-22 11:57 | DVHPN2 ---
Reviewed: Care Plan, H&P, Labs, Medications, Previous Orders, Radiology Changes from previous H/P or p: No Changes Eyes: No Pain, No Vision change, No Conjunctivae inflammation, No Eyelid inflammation, No Other, No Redness ENT: No Ear pain, No Ear discharge, No Nose pain, No Nose discharge, No Nose congestion, No Mouth pain, No Mouth swelling, No Throat pain, No Throat swelling, No Other Cardiovascular: No Chest Pain, No Palpitations, No Orthopnea, No Paroxysmal Noc. Dyspnea, No Edema, No Lt Headedness, No Other Respiratory: No Cough, No Dry, No Shortness of breath, No SOB with excertion, No Wheezing, No Hemoptysis, No Pleuritic Pain, No Sputum, No Other Gastrointestinal: Nausea, Vomiting, Abdominal Pain; No Diarrhea; Constipation; No Melena, No Hematochezia, No Other Genitourinary: No Dysuria, No Frequency, No Incontinence, No Hematuria, No Retention, No Other Musculoskeletal: No other, No neck pain, No shoulder pain, No arm pain, No back pain, No hand pain, No leg pain, No foot pain Skin: No Rash, No Lesions, No Jaundice, No Bruising, No Other Objective Vitals Vital Signs Date Time Temp Pulse Resp B/P (MAP) Pulse Ox O2 Delivery O2 Flow Rate FiO2 04/22/25 09:21 104 20 121/81 04/22/25 09:00 99.0 98 99.0 04/22/25 08:00 Room Air* 0 21 Intake/Output Intake and Output 04/22/25 07:00 Intake Total 50 ml Balance 50 ml Intake Oral 0 ml IV Total 50 ml # Voids 1 Medications Current Medications Medications Dose Ordered Sig/Gladys Route Start Time Stop Time Status Last Admin Dose Admin Acetaminophen/ Hydrocodone Bitart 1 tab Q4HP PRN PO 04/22/25 01:15 Hold Ondansetron HCl 4 mg Q4HP PRN IV 04/22/25 01:15 Enoxaparin Sodium 40 mg DAILY SC 04/22/25 10:00 04/22/25 09:51 40 MG Acetaminophen 650 mg Q6HP PRN PO 04/22/25 01:15 Morphine Sulfate 2 mg Q4HPRN PRN IV 04/22/25 01:15 Nitroglycerin 0.4 mg Q5MINP PRN SL 04/22/25 01:15 Morphine Sulfate 2 mg Q30M PRN IV 04/22/25 01:15 Metronidazole 100 ml @ 100 mls/hr Q8HR IV 04/22/25 08:00 04/22/25 08:23 100 MLS/HR Insulin Glargine 10 units DAILY@1000 SC 04/22/25 10:00 Diagnostic Test (Pha) 1 strip ACHS 04/22/25 07:00 04/22/25 06:52 1 STRIP Insulin Human Regular ACHS SC 04/22/25 07:00 Dextrose 50 ml UD PRN IV 04/22/25 01:30 Ciprofloxacin 200 ml @ 200 mls/hr BID IV 04/22/25 10:00 04/22/25 09:51 200 MLS/HR Laboratory Results Laboratory Tests 04/21/25 22:39 Chemistry Test 04/21/25 22:39 Albumin 4.5 g/dL (3.2-4.8) Calcium Level 9.1 mg/dL (8.7-10.4) Total Protein 8.3 g/dL (5.7-8.2) H Coagulation Test 04/21/25 22:39 Prothrombin Time 10.7 sec (9.3-11.8) Prothrombin Time INR 1.01 (0.9-1.15) Lipid panel Test 04/21/25 22:39 Lipase 32 U/L (12-53) Cardiac Markers Test 04/21/25 22:39 B-Type Natriuretic Peptide 8.76 pg/mL (0-100) LFT Test 04/21/25 22:39 Alanine Aminotransferase (ALT) 31 U/L (7-40) Alkaline Phosphatase 97 U/L (46-116) Aspartate Amino Transferase (AST) 30 U/L (13-40) Total Bilirubin 0.7 mg/dL (0.2-1.0) Urinalysis Test 04/21/25 22:23 Urine Color Light-yellow (Yellow) Urine Clarity Clear (Clear) Urine pH 6.0 (5.0-9.0) Urine Specific [place] 1.020 (1.001-1.035) Urine Protein Negative (Negative) Urine Ketones Negative (Negative) Urine Blood Negative /uL (Negative) Urine Nitrite Negative (Negative) Urine Bilirubin Negative (Negative) Urine Urobilinogen Normal mg/dL (Negative) Urine Leukocyte Esterase Negative /uL (Negative) Urine RBC 1 /hpf (0 - 4) Urine Microscopic WBC 2 /HPF (0-5) Urine Squamous Epithelial Cells Few /hpf (<5) Urine Bacteria Few /hpf (None Seen) H Urine Glucose 4+ mg/dL (Normal) H Labs and/or images reviewed: Labs reviewed by me, Image(s) reviewed by me Assessment/Plan Assessment/Plan Septic shock secondary to pericolonic abscess Radiology consult for drainage Pericolonic abscess possibly secondary to diverticulitis: Surgical consult by Dr. Juarez appreciated advised GI consult. Consult placed for GI Dr. Zeferino Marti for colonoscopy, continue Cipro and Flagyl IV Chronic microcytic anemia Acute descending colitis Acute complicated diverticulitis Possible history of coronary artery disease Hypotension Diabetes: Insulin sliding scale Hypercholesterolemia Recurrent UTIs Time spent 70 minutes Advanced care planning time 20 minutes Patient is full code RN Angela at bedside Plan discussed with: Patient My Orders Orders - SHEKHAR SRIVASTAVA MD Procedure Category Date Status Time * Gi Dvh Director Payer CONS 04/22/25 Transmitted 11:48 Date of Service: Apr 22, 2025 Billing Provider: SHEKHAR SRIVASTAVA MD Common Visit Codes: [id number] INP/OBS CARE(HIGH) SHEKHAR SRIVASTAVA MD Apr 22, 2025 11:57
[2025-04-22] MEDS: ONDANSETRON HCL 4 MG/2 ML VIAL IV PRN (12:19)
--- NOTE | 2025-04-22 13:20 | DVHINCON2 ---
Date of service: Apr 22, [address] Jason Juarez Reason for Consultation Abnormal finding GI tract imaging History of Present Illness A 59-year-old female presented to the ER with moderate, intermittent left flank pain ongoing for the past three weeks. Patient had a history of constipation requiring laxatives prior to the pain starting The pain radiates to the left lower quadrant and is described as dull and sharp in nature. She reports associated symptoms of abdominal pain, nausea, and vomiting, but denies any urinary complaints such as dysuria or gross hematuria. Patient had a colonoscopy about four years ago which she reports as negative Past Medical History Recurrent UTIs , hypertension, microcytic anemia, PUD/GERD, CKD, diabetes mellitus on insulin, diabetic neuropathy, insomnia, dyslipidemia, possible CAD, Past Surgical History Negative Family History: Hypertension G8 MOTHER G8 FATHER, Family History Family History: None (non contributory ) Social History Smoke: No ALCOHOL: none Drugs: None Lives: with Family Domestic Violence: Neg Allergies: Coded Allergies: Hydrocodone (Verified Allergy, Unknown, 04/21/25) Home Meds Reported Medications Dapagliflozin Propanediol (Farxiga) 10 Mg Tab, 1 TAB PO DAILY 04/22/25 Dulaglutide (Trulicity) 3 Mg/0.5 Ml Inj, 3 MG SC QWEEKLY 04/22/25 Insulin Glargine (Basaglar Kwikpen) 100 Unit/Ml Inj, 20 UNIT SC QAM 04/22/25 Furosemide (Furosemide) 40 Mg Tab, 1 TAB PO DAILY 04/22/25 Gabapentin (Gabapentin) 400 Mg Cap, 1 CAP PO TID 04/22/25 Methocarbamol (Methocarbamol) 500 Mg Tab, 1 TAB PO TID PRN for muscle spasm 04/22/25 Oxycodone W/ Acetaminophen (Percocet 5/325MG) 1 Tab Tb, PO Q8HPRN PRN for PAIN SCALE 7 THRU 10, TAB PERCOCET 10/325MG PO Q8HR PRN FOR PAIN 04/22/25 Naloxegol Oxalate (Movantik) 25 Mg Tab, 1 TAB PO DAILY 04/22/25 Spironolactone (Spironolactone) 25 Mg Tab, 1 TAB PO DAILY 04/22/25 Atorvastatin Calcium (Lipitor) 40 Mg Tab, 1 TAB PO DAILY 04/22/25 Losartan Potassium (Losartan Potassium) 50 Mg Tab, 1 TAB PO DAILY 04/22/25 Diltiazem Hcl (Cardizem La) 240 Mg Tab, 1 TAB PO DAILY 04/22/25 Current Medications Current Medications Medications (Trade) Dose Ordered Sig/Gladys Route PRN Reason Start Time Stop Time Status Last Admin Sodium Chloride 1,000 ml @ 120 mls/hr Q8H20M IV 04/22/25 01:15 04/22/25 06:01 DC Acetaminophen/ Hydrocodone Bitart (Rogers 5/325MG Tab) 1 tab Q4HP PRN PO MODERATE PAIN (4-6 PAIN SCALE) 04/22/25 01:15 Hold Ondansetron HCl (Zofran) 4 mg Q4HP PRN IV NAUSEA / VOMITING 04/22/25 01:15 04/22/25 12:19 Enoxaparin Sodium (Lovenox) 40 mg DAILY SC 04/22/25 10:00 04/22/25 09:51 Acetaminophen (Tylenol Tablet) 650 mg Q6HP PRN PO PAIN SCALE 1-3 OR TEMP>100.4 04/22/25 01:15 Morphine Sulfate 2 mg Q4HPRN PRN IV SEVERE PAIN (7-10 PAIN SCALE) 04/22/25 01:15 Nitroglycerin (Ntrostat Sublingual) 0.4 mg Q5MINP PRN SL FOR CHEST PAIN 04/22/25 01:15 Morphine Sulfate 2 mg Q30M PRN IV FOR CHEST PAIN 04/22/25 01:15 Ciprofloxacin 200 ml @ 200 mls/hr BID IV 04/22/25 04:00 04/22/25 01:22 DC Ciprofloxacin 200 ml @ 200 mls/hr BID IV 04/22/25 08:00 04/22/25 08:19 DC Metronidazole 100 ml @ 100 mls/hr Q8HR IV 04/22/25 08:00 04/22/25 08:23 Insulin Glargine (Lantus) 10 units DAILY@1000 SC 04/22/25 10:00 Diagnostic Test (Pha) (Accu-Chek Comfort Curve T) 1 strip ACHS 04/22/25 07:00 04/22/25 11:30 Insulin Human Regular (InsuLIN R) ACHS SC 04/22/25 07:00 Dextrose 50 ml UD PRN IV Blood Sugar LESS THAN 60 04/22/25 01:30 Ciprofloxacin 200 ml @ 200 mls/hr BID IV 04/22/25 10:00 04/22/25 09:51 Vital Signs Vital Signs Date Time Temp Pulse Resp B/P (MAP) Pulse Ox O2 Delivery O2 Flow Rate FiO2 04/22/25 09:21 104 20 121/81 04/22/25 09:00 99.0 98 99.0 04/22/25 08:00 Room Air* 0 21 Labs/Diagnostic Data Labs Test 04/22/25 12:22 04/21/25 23:52 04/21/25 22:39 04/21/25 22:23 Range/Units POC Glucose 98 70-106 mg/dl Lactic Acid Level 1.1 0.4-2.0 mmol/L White Blood Count 10.6 4.4-10.8 10^3/uL Red Blood Count 4.58 4.0-5.20 10^6/uL Hemoglobin 9.5 L 12.2-16.2 g/dL Hematocrit 29.9 L 36.0-46.0 % Mean Corpuscular Volume 65.3 L 80.0-100.0 fL Mean Corpuscular Hemoglobin 20.7 L 28.0-32.0 pg Mean Corpuscular Hemoglobin Concent 31.7 L 32.0-36.0 g/dL Red Cell Distribution Width 19.9 H 11.8-14.3 % Platelet Count 367 140-450 10^3/uL Mean Platelet Volume 7.4 6.9-10.8 fL Neutrophils (%) (Auto) 70.3 37.0-80.0 % Lymphocytes (%) (Auto) 20.0 10.0-50.0 % Monocytes (%) (Auto) 8.5 0.0-12.0 % Eosinophils (%) (Auto) 0.8 0.0-7.0 % Basophils (%) (Auto) 0.4 0.0-2.0 % Neutrophils # (Auto) 7.5 1.6-8.6 10 ^3/uL Lymphocytes # (Auto) 2.1 0.4-5.4 10 ^3/uL Monocytes # (Auto) 0.9 0-1.3 10 ^3/uL Eosinophils # (Auto) 0.1 0-0.8 10 ^3/uL Basophils # (Auto) 0 0-0.2 10 ^3/uL Nucleated Red Blood Cells 0.0 % Prothrombin Time 10.7 9.3-11.8 sec Prothrombin Time INR 1.01 0.9-1.15 Sodium Level 131 L 136-145 mmol/L Potassium Level 4.1 3.5-5.1 mmol/L Chloride Level 97 L 98-107 mmol/L Carbon Dioxide Level 25 20-31 mmol/L Anion Gap 9 5-15 Blood Urea Nitrogen 13 9-23 mg/dL Creatinine 1.33 H 0.550-1.02 mg/dL Glomerular Filtration Rate Calc 46 >90 mL/min BUN/Creatinine Ratio 9.8 L 10.0-20.0 Serum Glucose 163 H 74-106 mg/dL Calcium Level 9.1 8.7-10.4 mg/dL Total Bilirubin 0.7 0.2-1.0 mg/dL Aspartate Amino Transferase (AST) 30 13-40 U/L Alanine Aminotransferase (ALT) 31 7-40 U/L Alkaline Phosphatase 97 46-116 U/L B-Type Natriuretic Peptide 8.76 0-100 pg/mL Total Protein 8.3 H 5.7-8.2 g/dL Albumin 4.5 3.2-4.8 g/dL Lipase 32 12-53 U/L Urine Color Light-yellow Yellow Urine Clarity Clear Clear Urine pH 6.0 5.0-9.0 Urine Specific [place] 1.020 1.001-1.035 Urine Protein Negative Negative Urine Ketones Negative Negative Urine Blood Negative Negative /uL Urine Nitrite Negative Negative Urine Bilirubin Negative Negative Urine Urobilinogen Normal Negative mg/dL Urine Leukocyte Esterase Negative Negative /uL Urine RBC 1 0 - 4 /hpf Urine Microscopic WBC 2 0-5 /HPF Urine Squamous Epithelial Cells Few <5 /hpf Urine Bacteria Few H None Seen /hpf Urine Glucose 4+ H Normal mg/dL CT SCAN ABD PELVIS IMPRESSION: Circumferential wall thickening of a segment of distal descending colon with pericolonic stranding. There is a thick walled outpouching or collection to the left of the descending colon measuring up to 5.2 cm. This could reflect pericolonic abscess associated with acute diverticulitis or colitis. A mass is also a consideration though less likely. Close follow-up CT recommended after appropriate course of medical therapy. Alternatively colonoscopy recommended if not already recently performed. Problems(with codes): (1) Abnormal finding on GI tract imaging (2) Left flank pain (3) Pericolonic abscess due to diverticulitis (4) Diverticulitis Plan/Recommendation Assessment and plan Recommend continue keeping her NPO IV fluid hydration IV antibiotics Serial imaging and IR evaluation for possible drainage of abscess Patient would not be an appropriate candidate for a colonoscopy at this time; last colonoscopy negative four years ago Check CEA level and monitor labs IV Clinimix at 42 mL/hour as I anticipate prolonged fasting Plan discussed with: Patient, Other (Nurse) TUNDE ISIDRO MD Apr 22, 2025 13:20
[2025-04-22] MEDS ORDERED: CLINIMIX PER PHARMACY 0 ML IV SCH (13:30)
[2025-04-22] MEDS: MORPHINE SULFATE INJ 2 MG/ml SYRG IV PRN (15:40)
[2025-04-22] MEDS: AMINO ACID INFUSION IN D10W 1,000 ML IV SCH (21:19)
--- NOTE | 2025-04-22 21:51 | DVHSR ---
APPROVED REPORT EXAM: Two-dimensional and M-mode echocardiogram with Doppler and color Doppler. Blood Pressure: 132/75 mmHg INDICATION Known heart failure Rule out structural heart disease RISK FACTORS Height: 5' 4", Weight: 163 DIMENSIONS LVDd4.4 (3.8-5.7cm)LA (2D)3.7 (1.9-4.0cm)Aortic Root2.6 (2.0-3.7cm) LVDs2.7 (2.5-4.0cm)LA (MM) (1.9-4.0cm)Aortic Cusp Exc1.5 (1.5-2.0cm) EF (%) 70.0 (55-70%)Rt. Atrium3.0 (1.9-4.0cm)Asc. Aorta cm IVSd0.8 (0.7-1.1cm)RV (D) (1.8-2.4cm) PWd0.7 (0.7-1.1cm) Mitral Valve MitralMitral Stenosis E wave0.90m/sMV Mean GR.mmHg A wave1.00m/sMV Peak GR.mmHg E/A ratio0.92D MVAcm2 Aortic Valve Aortic ValveAortic Stenosis V10.90m/Darryn Mean GR.7mmHg V21.80m/Darryn Peak GR.13mmHg LVOT Diameter2.2 (1.8-2.4cm)Doppler AVA1.90cm2 Pulmonic Valve V21.10m/s Tricuspid Valve TR Velocity2.10m/s [id number] Conclusion LV EF IS 65% NORMALVALVES NO EFFUSION NORMAL RV FUNCTION
[2025-04-23] VITALS (8 sets, daily range): BP systolic 126–139; BP diastolic 65–79; PULSE 88–105; RESP 16–18; TEMP 97.6–98.9; O2SAT 96–100
--- NOTE | 2025-04-23 08:04 | DVHPN2 ---
Reviewed: Care Plan, H&P, Labs, Medications, Previous Orders, Radiology Changes from previous H/P or p: No Changes Eyes: No Pain, No Vision change, No Conjunctivae inflammation, No Eyelid inflammation, No Other, No Redness ENT: No Ear pain, No Ear discharge, No Nose pain, No Nose discharge, No Nose congestion, No Mouth pain, No Mouth swelling, No Throat pain, No Throat swelling, No Other Cardiovascular: No Chest Pain, No Palpitations, No Orthopnea, No Paroxysmal Noc. Dyspnea, No Edema, No Lt Headedness, No Other Respiratory: No Cough, No Dry, No Shortness of breath, No SOB with excertion, No Wheezing, No Hemoptysis, No Pleuritic Pain, No Sputum, No Other Gastrointestinal: Nausea, Vomiting, Abdominal Pain; No Diarrhea; Constipation; No Melena, No Hematochezia, No Other Genitourinary: No Dysuria, No Frequency, No Incontinence, No Hematuria, No Retention, No Other Musculoskeletal: No other, No neck pain, No shoulder pain, No arm pain, No back pain, No hand pain, No leg pain, No foot pain Skin: No Rash, No Lesions, No Jaundice, No Bruising, No Other Objective Vitals Vital Signs Date Time Temp Pulse Resp B/P (MAP) Pulse Ox O2 Delivery O2 Flow Rate FiO2 04/23/25 06:43 94 18 130/72 04/23/25 04:36 97.8 97 97.8 04/22/25 20:00 Room Air* 0 21 Intake/Output Intake and Output 04/23/25 07:00 Intake Total 1500 ml Output Total 900 ml Balance 600 ml Intake Oral 1100 ml IV Total 400 ml Output Urine Total 900 ml # Voids 2 Medications Current Medications Medications Dose Ordered Sig/Gladys Route Start Time Stop Time Status Last Admin Dose Admin Acetaminophen/ Hydrocodone Bitart 1 tab Q4HP PRN PO 04/22/25 01:15 Hold Ondansetron HCl 4 mg Q4HP PRN IV 04/22/25 01:15 04/22/25 21:17 4 MG Enoxaparin Sodium 40 mg DAILY SC 04/22/25 10:00 04/22/25 09:51 40 MG Acetaminophen 650 mg Q6HP PRN PO 04/22/25 01:15 Morphine Sulfate 2 mg Q4HPRN PRN IV 04/22/25 01:15 04/23/25 06:15 2 MG Nitroglycerin 0.4 mg Q5MINP PRN SL 04/22/25 01:15 Morphine Sulfate 2 mg Q30M PRN IV 04/22/25 01:15 Metronidazole 100 ml @ 100 mls/hr Q8HR IV 04/22/25 08:00 04/23/25 06:03 100 MLS/HR Insulin Glargine 10 units DAILY@1000 SC 04/22/25 10:00 Diagnostic Test (Pha) 1 strip ACHS 04/22/25 07:00 04/23/25 06:18 1 STRIP Insulin Human Regular ACHS SC 04/22/25 07:00 04/23/25 06:25 3 UNITS Dextrose 50 ml UD PRN IV 04/22/25 01:30 Ciprofloxacin 200 ml @ 200 mls/hr BID IV 04/22/25 10:00 04/22/25 21:18 200 MLS/HR Amino Acids 0 ml @ 0 mls/hr PER PHARMACY IV 04/22/25 13:30 Amino Acids/ Electrolytes/ Dextrose 1,000 ml @ 41 mls/hr DAILY@2200 IV 04/22/25 22:00 04/22/25 21:19 41 MLS/HR Laboratory Results Laboratory Tests 04/21/25 22:39 Urinalysis Test 04/21/25 22:23 Urine Color Light-yellow (Yellow) Urine Clarity Clear (Clear) Urine pH 6.0 (5.0-9.0) Urine Specific [place] 1.020 (1.001-1.035) Urine Protein Negative (Negative) Urine Ketones Negative (Negative) Urine Blood Negative /uL (Negative) Urine Nitrite Negative (Negative) Urine Bilirubin Negative (Negative) Urine Urobilinogen Normal mg/dL (Negative) Urine Leukocyte Esterase Negative /uL (Negative) Urine RBC 1 /hpf (0 - 4) Urine Microscopic WBC 2 /HPF (0-5) Urine Squamous Epithelial Cells Few /hpf (<5) Urine Bacteria Few /hpf (None Seen) H Urine Glucose 4+ mg/dL (Normal) H Microbiology Microbiology Date/Time Source Procedure Growth Status 04/21/25 23:52 Blood Blood Culture - Preliminary NO GROWTH AFTER 24 HOURS OF INCUBATION. Resulted Labs and/or images reviewed: Labs reviewed by me, Image(s) reviewed by me Assessment/Plan Assessment/Plan Septic shock secondary to pericolonic abscess Radiology consult for drainage Pericolonic abscess possibly secondary to diverticulitis: Surgical consult by Dr. Juarez appreciated advised GI consult. Consult placed for GI Dr. Zeferino Marti for colonoscopy, continue Cipro and Flagyl IV Chronic microcytic anemia Acute descending colitis Acute complicated diverticulitis Possible history of coronary artery disease Hypotension Diabetes: Insulin sliding scale Hypercholesterolemia Recurrent UTIs Time spent 55 minutes Advanced care planning time 20 minutes Patient is full code RN Angela at bedside Plan discussed with: Patient My Orders Orders - SHEKHAR SRIVASTAVA MD Procedure Category Date Status Time * Gi Dvh Music Typographer CONS 04/22/25 Transmitted 11:48 Comprehensive LAB 04/24/25 Verified Metabolic Panel 04:00 Complete Blood Count LAB 04/24/25 Verified 04:00 Comprehensive LAB 04/25/25 Verified Metabolic Panel 04:00 Complete Blood Count LAB 04/25/25 Verified 04:00 Comprehensive LAB 04/26/25 Verified Metabolic Panel 04:00 Complete Blood Count LAB 04/26/25 Verified 04:00 Comprehensive LAB 04/27/25 Verified Metabolic Panel 04:00 Complete Blood Count LAB 04/27/25 Verified 04:00 Date of Service: Apr 23, 2025 Billing Provider: SHEKHAR SRIVASTAVA MD Common Visit Codes: [id number] INP/OBS CARE(HIGH) SHEKHAR SRIVASTAVA MD Apr 23, 2025 08:04
[2025-04-23 10:22] LABS: Nucleated Red Blood Cells % 0.0 %
[2025-04-23 10:29] LABS: Hematocrit 26.3 % (36.0-46.0); Hemoglobin 8.4 g/dL (12.2-16.2); Mean Corpuscular Hemoglobin 20.7 pg (28.0-32.0); Mean Corpuscular Volume 64.7 fL (80.0-100.0)
[2025-04-23 10:43] LABS: Alanine Aminotransferase 21 U/L (7-40); Alkaline Phosphatase 79 U/L (46-116); Anion Gap 8 (5-15); BUN/Creatinine Ratio 10.1 (10.0-20.0); Blood Urea Nitrogen 10 mg/dL (9-23); Calcium 9.0 mg/dL (8.7-10.4); Carbon Dioxide 27 mmol/L (20-31); Chloride 98 mmol/L (98-107); Magnesium 1.9 mg/dL (1.6-2.6); Potassium 4.0 mmol/L (3.5-5.1); Total Protein 7.2 g/dL (5.7-8.2)
[2025-04-23 10:44] LABS: Albumin 4.0 g/dL (3.2-4.8); Bilirubin, Total 0.7 mg/dL (0.2-1.0); Glucose 139 mg/dL (74-106); Sodium 133 mmol/L (136-145)
--- NOTE | 2025-04-23 16:39 | DVHPN2 ---
Progress Note Date Seen: Apr 23, 2025 Resident Creating Document: ALYSON KLEIN RESIDENT Has the PT tested + for MRSA If YES, has PT been informed?: No Medical Necessity Reason Pt with a Central, PICC or Fol: No Subjective Review of Systems Today, hemoglobin dropped to 8.4 g/dL from 9.5 g/dL yesterday, concerning for ongoing anemia. Carcinoembryonic antigen (CEA) is 26.91, elevated. Patient remains NPO, currently on IV Clinimix at 42 mL/hr for nutritional support. Interval Progress * IR Consultation: Initially planned drainage for presumed abscess. After evaluation, no drainable collection was identified; findings suggest fecal matter/stool and possible underlying colonic mass rather than an abscess. * Colonoscopy: Deferred due to high risk of perforation in the setting of stool burden and suspected contained perforation/diverticulitis. * Surgery: Surgical service following; possible surgical intervention if clinical deterioration. * Antibiotics: Patient is receiving IV Antibiotics and IV Clindamycin for diverticulitis coverage. * Echocardiogram: Normal. Laboratory Data (04/23/25) * CBC: Hgb 8.4 (? from 9.5), Hct 26.3%, WBC 6.9 (normal), Plt 283. * Chemistry: Na 133 (low), K 4.0, CO? 27, BUN 10, Cr 0.99 (GFR 66). * LFTs: AST 17, ALT 21, Alk Phos 79, TBili 0.7 all within normal range. * CEA: 26.91 (elevated). * Iron studies: Microcytic anemia with hypochromasia and microcytosis consistent with iron deficiency vs. anemia of chronic disease. Imaging CT Abdomen/Pelvis (04/23/25): * Circumferential wall thickening of distal descending colon segment with pericolonic stranding. * Thick-walled outpouching/collection (~5.2 cm) left of descending colon ? could represent pericolic abscess vs. colitis vs. mass lesion. * IR opinion: not amenable to drainage. * Recommendation: close follow-up CT after medical therapy; colonoscopy once safe. Objective vital signs Vital Sign Date Time Temp Pulse Resp B/P (MAP) Pulse Ox O2 Delivery O2 Flow Rate FiO2 04/23/25 12:30 98.9 96 16 127/67 (87) 98 98.9 04/23/25 08:00 Room Air* 0 21 Total Intake and Output 04/22/25 04/22/25 04/23/25 15:00 23:00 07:00 Intake Total 300 ml 600 ml 600 ml Output Total 400 ml 500 ml Balance -100 ml 100 ml 600 ml medications Current Medications Medications Dose Ordered Sig/Gladys Route Start Time Stop Time Status Last Admin Dose Admin Acetaminophen/ Hydrocodone Bitart 1 tab Q4HP PRN PO 04/22/25 01:15 Hold Ondansetron HCl 4 mg Q4HP PRN IV 04/22/25 01:15 04/22/25 21:17 4 MG Enoxaparin Sodium 40 mg DAILY SC 04/22/25 10:00 04/23/25 09:23 40 MG Acetaminophen 650 mg Q6HP PRN PO 04/22/25 01:15 Morphine Sulfate 2 mg Q4HPRN PRN IV 04/22/25 01:15 04/23/25 11:46 2 MG Nitroglycerin 0.4 mg Q5MINP PRN SL 04/22/25 01:15 Morphine Sulfate 2 mg Q30M PRN IV 04/22/25 01:15 Metronidazole 100 ml @ 100 mls/hr Q8HR IV 04/22/25 08:00 04/23/25 14:19 100 MLS/HR Insulin Glargine 10 units DAILY@1000 SC 04/22/25 10:00 Diagnostic Test (Pha) 1 strip ACHS 04/22/25 07:00 04/23/25 11:46 1 STRIP Insulin Human Regular ACHS SC 04/22/25 07:00 04/23/25 06:25 3 UNITS Dextrose 50 ml UD PRN IV 04/22/25 01:30 Ciprofloxacin 200 ml @ 200 mls/hr BID IV 04/22/25 10:00 04/23/25 09:23 200 MLS/HR Amino Acids 0 ml @ 0 mls/hr PER PHARMACY IV 04/22/25 13:30 Amino Acids/ Electrolytes/ Dextrose 1,000 ml @ 41 mls/hr DAILY@2200 IV 04/22/25 22:00 04/22/25 21:19 41 MLS/HR Examination * Abdomen: Tenderness in LLQ and left flank, mild guarding. No rebound, no peritoneal signs. * Bowel sounds: Present. * No hepatosplenomegaly. * No obvious external bleeding. laboratory and microbiology Laboratory Tests 04/23/25 10:02 Test 04/23/25 10:02 Range/Units Serum Glucose 139 H 74-106 mg/dL Microbiology Date/Time Source Procedure Growth Status 04/21/25 23:52 Blood Blood Culture - Preliminary NO GROWTH AFTER 24 HOURS OF INCUBATION. Resulted Problem List/Assessment/Plan Problem List/Assessment/Plan Assessment * Acute diverticulitis with contained perforation / pericolic abscess (most likely) * Colonic mass / malignancy (elevated CEA concerning) * Segmental colitis associated with diverticulosis (SCAD) * Ischemic colitis (less likely given stable hemodynamics) GI-Specific Treatment Plan Gastrointestinal * Continue IV antibiotics (IV broad coverage). * Keep NPO /IV nutrition until stability is confirmed. * Maintain IV Clinimix at 42 mL/hr for nutritional support. * Surgical team to follow closely; escalate to OR if signs of rupture, uncontrolled sepsis, or worsening peritonitis. * Repeat CT abdomen/pelvis in 57 days or sooner if worsening. * Colonoscopy to be scheduled once acute process resolves and patient is stable (rule out malignancy given elevated CEA and CT findings). Not any time soon in 6 - 8 weeks Hematology * Monitor CBC daily. * Transfuse PRBC if Hgb <7.0 or symptomatic anemia. * Workup for iron deficiency anemia (iron panel, ferritin). Infectious Disease * Continue IV antibiotics * Monitor WBC, CRP, procalcitonin. Fluids / Electrolytes / Nutrition * Maintain IV fluids for hydration. * Continue IV Clinimix; add electrolytes as needed. * Monitor electrolytes, renal function daily. Prophylaxis * GI prophylaxis: PPI (Pantoprazole IV). * Bowel regimen: Hold aggressive laxatives given risk of perforation; reassess after acute phase. Plan discussed with: Patient, Other (RN) ALYSON KLEIN RESIDENT Apr 23, 2025 16:39
[2025-04-23] MEDS: ACETAMINOPHEN 325 MG TAB PO PRN (20:25)
[2025-04-24] VITALS (8 sets, daily range): BP systolic 111–135; BP diastolic 61–73; PULSE 89–103; RESP 17–20; TEMP 97.2–100.4; O2SAT 97–98
[2025-04-24 07:31] LABS: Hematocrit 25.9 % (36.0-46.0); Hemoglobin 8.2 g/dL (12.2-16.2); Mean Corpuscular Hemoglobin 20.3 pg (28.0-32.0); Mean Corpuscular Volume 64.5 fL (80.0-100.0); Nucleated Red Blood Cells % 0.1 %
[2025-04-24 07:38] LABS: Alanine Aminotransferase 16 U/L (7-40); Albumin 4.0 g/dL (3.2-4.8); Alkaline Phosphatase 77 U/L (46-116); Anion Gap 8 (5-15); BUN/Creatinine Ratio 9.0 (10.0-20.0); Calcium 8.9 mg/dL (8.7-10.4); Carbon Dioxide 25 mmol/L (20-31); Chloride 103 mmol/L (98-107); Magnesium 2.0 mg/dL (1.6-2.6); Potassium 3.9 mmol/L (3.5-5.1); Total Protein 7.4 g/dL (5.7-8.2)
[2025-04-24 07:39] LABS: Bilirubin, Total 0.4 mg/dL (0.2-1.0)
[2025-04-24 07:43] LABS: Sodium 136 mmol/L (136-145)
[2025-04-24 07:44] LABS: Blood Urea Nitrogen 8 mg/dL (9-23); Glucose 145 mg/dL (74-106)
--- NOTE | 2025-04-24 08:43 | DVHPN2 ---
Reviewed: Care Plan, H&P, Labs, Medications, Previous Orders, Radiology Changes from previous H/P or p: No Changes Eyes: No Pain, No Vision change, No Conjunctivae inflammation, No Eyelid inflammation, No Other, No Redness ENT: No Ear pain, No Ear discharge, No Nose pain, No Nose discharge, No Nose congestion, No Mouth pain, No Mouth swelling, No Throat pain, No Throat swelling, No Other Cardiovascular: No Chest Pain, No Palpitations, No Orthopnea, No Paroxysmal Noc. Dyspnea, No Edema, No Lt Headedness, No Other Respiratory: No Cough, No Dry, No Shortness of breath, No SOB with excertion, No Wheezing, No Hemoptysis, No Pleuritic Pain, No Sputum, No Other Gastrointestinal: Nausea, Vomiting, Abdominal Pain; No Diarrhea; Constipation; No Melena, No Hematochezia, No Other Genitourinary: No Dysuria, No Frequency, No Incontinence, No Hematuria, No Retention, No Other Musculoskeletal: No other, No neck pain, No shoulder pain, No arm pain, No back pain, No hand pain, No leg pain, No foot pain Skin: No Rash, No Lesions, No Jaundice, No Bruising, No Other Objective Vitals Vital Signs Date Time Temp Pulse Resp B/P (MAP) Pulse Ox O2 Delivery O2 Flow Rate FiO2 04/24/25 05:00 97.2 92 18 131/73 (92) 97 97.2 04/23/25 20:00 Room Air* 0 21 Intake/Output Intake and Output 04/24/25 07:00 Intake Total 400 ml Output Total 1 ml Balance 399 ml IV Total 400 ml Output Urine Total 1 ml Stool Total 0 ml # Voids 3 Medications Current Medications Medications Dose Ordered Sig/Gladys Route Start Time Stop Time Status Last Admin Dose Admin Acetaminophen/ Hydrocodone Bitart 1 tab Q4HP PRN PO 04/22/25 01:15 Hold Ondansetron HCl 4 mg Q4HP PRN IV 04/22/25 01:15 04/24/25 03:06 4 MG Enoxaparin Sodium 40 mg DAILY SC 04/22/25 10:00 04/23/25 09:23 40 MG Acetaminophen 650 mg Q6HP PRN PO 04/22/25 01:15 04/23/25 20:25 650 MG Morphine Sulfate 2 mg Q4HPRN PRN IV 04/22/25 01:15 04/24/25 03:19 2 MG Nitroglycerin 0.4 mg Q5MINP PRN SL 04/22/25 01:15 Morphine Sulfate 2 mg Q30M PRN IV 04/22/25 01:15 Metronidazole 100 ml @ 100 mls/hr Q8HR IV 04/22/25 08:00 04/24/25 06:10 100 MLS/HR Insulin Glargine 10 units DAILY@1000 SC 04/22/25 10:00 Diagnostic Test (Pha) 1 strip ACHS 04/22/25 07:00 04/24/25 06:21 1 STRIP Insulin Human Regular ACHS SC 04/22/25 07:00 04/24/25 06:28 3 UNITS Dextrose 50 ml UD PRN IV 04/22/25 01:30 Ciprofloxacin 200 ml @ 200 mls/hr BID IV 04/22/25 10:00 04/23/25 21:34 200 MLS/HR Amino Acids 0 ml @ 0 mls/hr PER PHARMACY IV 04/22/25 13:30 Amino Acids/ Electrolytes/ Dextrose 1,000 ml @ 41 mls/hr DAILY@2200 IV 04/22/25 22:00 04/23/25 21:34 41 MLS/HR Laboratory Results Laboratory Tests 04/24/25 06:15 Chemistry Test 04/23/25 10:02 04/24/25 06:15 Albumin 4.0 g/dL (3.2-4.8) 4.0 g/dL (3.2-4.8) Calcium Level 9.0 mg/dL (8.7-10.4) 8.9 mg/dL (8.7-10.4) Magnesium Level 1.9 mg/dL (1.6-2.6) 2.0 mg/dL (1.6-2.6) Phosphorus Level 3.0 mg/dL (2.4-5.1) 3.0 mg/dL (2.4-5.1) Total Protein 7.2 g/dL (5.7-8.2) 7.4 g/dL (5.7-8.2) LFT Test 04/23/25 10:02 04/24/25 06:15 Alanine Aminotransferase (ALT) 21 U/L (7-40) 16 U/L (7-40) Alkaline Phosphatase 79 U/L (46-116) 77 U/L (46-116) Aspartate Amino Transferase (AST) 17 U/L (13-40) 19 U/L (13-40) Total Bilirubin 0.7 mg/dL (0.2-1.0) 0.4 mg/dL (0.2-1.0) Urinalysis Test 04/21/25 22:23 Urine Color Light-yellow (Yellow) Urine Clarity Clear (Clear) Urine pH 6.0 (5.0-9.0) Urine Specific [place] 1.020 (1.001-1.035) Urine Protein Negative (Negative) Urine Ketones Negative (Negative) Urine Blood Negative /uL (Negative) Urine Nitrite Negative (Negative) Urine Bilirubin Negative (Negative) Urine Urobilinogen Normal mg/dL (Negative) Urine Leukocyte Esterase Negative /uL (Negative) Urine RBC 1 /hpf (0 - 4) Urine Microscopic WBC 2 /HPF (0-5) Urine Squamous Epithelial Cells Few /hpf (<5) Urine Bacteria Few /hpf (None Seen) H Urine Glucose 4+ mg/dL (Normal) H Microbiology Microbiology Date/Time Source Procedure Growth Status 04/21/25 23:52 Blood Blood Culture - Preliminary NO GROWTH AFTER 48 HOURS OF INCUBATION. Resulted Labs and/or images reviewed: Labs reviewed by me, Image(s) reviewed by me Assessment/Plan Assessment/Plan Septic shock secondary to pericolonic abscess Radiology consult for drainage per radiology there is no abscess, but it is a mass, will inform GI Dr. Zeferino Marti for colonoscopy and Dr. Juarez for possible surgery Pericolonic abscess possibly secondary to diverticulitis: Surgical consult by Dr. Juarez appreciated advised GI consult. Consult placed for GI Dr. Zeferino Marti for colonoscopy, continue Cipro and Flagyl IV Chronic microcytic anemia Acute descending colitis Elevated CEA 26 concerning for colonic malignancy Acute complicated diverticulitis Possible history of coronary artery disease Hypotension Diabetes: Insulin sliding scale Hypercholesterolemia Recurrent UTIs Time spent 55 minutes Advanced care planning time 20 minutes Patient is full code RN Angela at bedside Plan discussed with: Patient Date of Service: Apr 24, 2025 Billing Provider: SHEKHAR SRIVASTAVA MD Common Visit Codes: [id number] INP/OBS CARE(HIGH) SHEKHAR SRIVASTAVA MD Apr 24, 2025 08:43
--- NOTE | 2025-04-24 10:08 | DVHPN2 ---
Progress Note Date Seen: Apr 24, 2025 Has the PT tested + for MRSA If YES, has PT been informed?: No Medical Necessity Reason Pt with a Central, PICC or Fol: No Objective vital signs Vital Sign Date Time Temp Pulse Resp B/P (MAP) Pulse Ox O2 Delivery O2 Flow Rate FiO2 04/24/25 08:59 98.6 92 19 128/71 (90) 98 98.6 04/23/25 20:00 Room Air* 0 21 Total Intake and Output 04/23/25 04/23/25 04/24/25 15:00 23:00 07:00 Intake Total 300 ml 100 ml Output Total 0 ml 1 ml Balance 300 ml 100 ml -1 ml medications Current Medications Medications Dose Ordered Sig/Gladys Route Start Time Stop Time Status Last Admin Dose Admin Acetaminophen/ Hydrocodone Bitart 1 tab Q4HP PRN PO 04/22/25 01:15 Hold Ondansetron HCl 4 mg Q4HP PRN IV 04/22/25 01:15 04/24/25 03:06 4 MG Enoxaparin Sodium 40 mg DAILY SC 04/22/25 10:00 04/23/25 09:23 40 MG Acetaminophen 650 mg Q6HP PRN PO 04/22/25 01:15 04/23/25 20:25 650 MG Morphine Sulfate 2 mg Q4HPRN PRN IV 04/22/25 01:15 04/24/25 03:19 2 MG Nitroglycerin 0.4 mg Q5MINP PRN SL 04/22/25 01:15 Morphine Sulfate 2 mg Q30M PRN IV 04/22/25 01:15 Metronidazole 100 ml @ 100 mls/hr Q8HR IV 04/22/25 08:00 04/24/25 06:10 100 MLS/HR Insulin Glargine 10 units DAILY@1000 SC 04/22/25 10:00 Diagnostic Test (Pha) 1 strip ACHS 04/22/25 07:00 04/24/25 06:21 1 STRIP Insulin Human Regular ACHS SC 04/22/25 07:00 04/24/25 06:28 3 UNITS Dextrose 50 ml UD PRN IV 04/22/25 01:30 Ciprofloxacin 200 ml @ 200 mls/hr BID IV 04/22/25 10:00 04/23/25 21:34 200 MLS/HR Amino Acids 0 ml @ 0 mls/hr PER PHARMACY IV 04/22/25 13:30 Amino Acids/ Electrolytes/ Dextrose 1,000 ml @ 41 mls/hr DAILY@2200 IV 04/22/25 22:00 04/23/25 21:34 41 MLS/HR laboratory and microbiology Laboratory Tests 04/24/25 06:15 Test 04/24/25 06:15 Range/Units Serum Glucose 145 H 74-106 mg/dL Problem List/Assessment/Plan Problem List/Assessment/Plan 04/24/25 stable but slow blood loss continues, radiologist reviewed ct scan and advised against radiological intervention. she needs a colonoscopy to evaluate for possible tumor, I will order an MRI in case Plan discussed with: Patient COURTNEY BOYD MD Apr 24, 2025 10:07
--- NOTE | 2025-04-24 14:34 | DVHPN2 ---
Progress Note - Dictate Date Seen: Apr 24, 2025 Has the PT tested + for MRSA If YES, has PT been informed?: No Medical Necessity Reason Pt with a Central, PICC or Fol: No Subjective Patient is resting comfortably She is currently NPO on IV Clinimix Patient is receiving IV antibiotics CT findings reviewed with the patient Elevated CEA and suspicion for a colonic mass Patient did have a negative colonoscopy about four years vital signs Vital Sign Date Time Temp Pulse Resp B/P (MAP) Pulse Ox O2 Delivery O2 Flow Rate FiO2 04/24/25 12:29 98.7 97 17 128/70 (89) 98 98.7 04/23/25 20:00 Room Air* 0 21 Total Intake and Output 04/23/25 04/23/25 04/24/25 15:00 23:00 07:00 Intake Total 300 ml 100 ml Output Total 0 ml 1 ml Balance 300 ml 100 ml -1 ml medications Current Medications Medications Dose Ordered Sig/Gladys Route Start Time Stop Time Status Last Admin Dose Admin Acetaminophen/ Hydrocodone Bitart 1 tab Q4HP PRN PO 04/22/25 01:15 Hold Ondansetron HCl 4 mg Q4HP PRN IV 04/22/25 01:15 04/24/25 10:08 4 MG Enoxaparin Sodium 40 mg DAILY SC 04/22/25 10:00 04/24/25 09:55 40 MG Acetaminophen 650 mg Q6HP PRN PO 04/22/25 01:15 04/23/25 20:25 650 MG Morphine Sulfate 2 mg Q4HPRN PRN IV 04/22/25 01:15 04/24/25 09:57 2 MG Nitroglycerin 0.4 mg Q5MINP PRN SL 04/22/25 01:15 Morphine Sulfate 2 mg Q30M PRN IV 04/22/25 01:15 Metronidazole 100 ml @ 100 mls/hr Q8HR IV 04/22/25 08:00 04/24/25 06:10 100 MLS/HR Insulin Glargine 10 units DAILY@1000 SC 04/22/25 10:00 04/24/25 11:53 10 UNITS Diagnostic Test (Pha) 1 strip ACHS 04/22/25 07:00 04/24/25 11:46 1 STRIP Insulin Human Regular ACHS SC 04/22/25 07:00 04/24/25 06:28 3 UNITS Dextrose 50 ml UD PRN IV 04/22/25 01:30 Ciprofloxacin 200 ml @ 200 mls/hr BID IV 04/22/25 10:00 04/24/25 09:56 200 MLS/HR Amino Acids 0 ml @ 0 mls/hr PER PHARMACY IV 04/22/25 13:30 Amino Acids/ Electrolytes/ Dextrose 1,000 ml @ 41 mls/hr DAILY@2200 IV 04/22/25 22:00 04/23/25 21:34 41 MLS/HR objective Well-developed well-nourished lady no acute distress Pupils equal and react to light, extraocular movements intact Lungs are clear, CVS S1-S2 regular rate rhythm Abdomen is soft nontender nondistended Extremities without clubbing cyanosis or edema Neuro she is alert oriented x3 with no focal deficit laboratory and microbiology Laboratory Tests 04/24/25 06:15 Test 04/24/25 06:15 Range/Units Serum Glucose 145 H 74-106 mg/dL Problems(with codes): (1) Colonic mass (2) Elevated CEA (3) Abnormal finding on GI tract imaging (4) Left flank pain (5) Pericolonic abscess due to diverticulitis (6) Diverticulitis Prognosis Plan Patient is scheduled for an MRI of the abdomen with IV contrast to further evaluate the mass, collection in the distal descending colon There is a tentative plan for a sigmoidoscopy with possible biopsy on 04/25/25 Procedure including bleeding and perforation and risks of consideration get any were discussed with the patient Surgical follow up is appreciated Plan discussed with: Patient, Other (Dr. Duke Rojas and Dr. Jason Juarez) TUNDE ISIDRO MD Apr 24, 2025 14:34
--- NOTE | 2025-04-24 14:35 | DVH ---
CLINICAL HISTORY: No indication provided. Indication for prior CT of the abdomen and pelvis was lef t flank pain. Prior CT examination revealed circumferential wall thickening of the distal descending colon with associated pericolonic stranding with focal outpouching, possible collection. Abscess not excluded. TECHNIQUE: Multi sequence multi planar MRI images of the abdomen pelvis were obtained prior to and a fter the uneventful administration of 20 mL Clariscan contrast. COMPARISON: CT of the abdomen and pelvis dated 04/21/2025. FINDINGS: Again seen is irregular moderate to marked wall thickening involving a loop of descending colon in the left hemiabdomen extending up to 7.8 cm in proximal to distal dimension with associated luminal narrowing and marked postcontrast enhancement. There is marked pericolonic inflammatory stran ding and enhancement also demonstrated. When correlated with the recent CT examination there is focal outpouching along the posterior lateral aspect of the descending colon, measuring up to 5.6 cm in gr eatest dimension, suspected contained perforation likely phlegmon with surrounding marked inflammator y stranding and enhancement. There is ill-defined fluid adjacent to the descending colon, likely infl ammatory in nature. No peripherally enhancing fluid collection identified to suggest abscess. There i s edema and enhancement in the left iliacus muscle and portions of the left psoas muscle adjacent to the pericolonic inflammatory stranding, likely secondary inflammation of the left iliacus and psoas m uscles. The liver, spleen, pancreas, adrenal glands,, and kidneys appear unremarkable. There is subtle layeri ng signal in the gallbladder, possibly sludge. No biliary ductal dilatation. Bladder is unremarkable. Uterus appears to be surgically absent. IMPRESSION: 1. Irregular moderate to marked wall thickening involving a loop of descending colon with marked savage cent inflammatory stranding and enhancement. Findings appear most consistent with marked colitis with focal outpouching likely due to contained perforation and possible phlegmon in the appropriate clini komal setting. No peripherally enhancing abscess demonstrated. Given the irregular wall thickening in t he descending colon. Superimposed colonic malignancy can not be excluded. 2. Edema and enhancement in the left iliacus and left psoas muscles, likely secondary inflammation fr om the process in the descending colon.
[2025-04-25] VITALS (11 sets, daily range): BP systolic 104–147; BP diastolic 66–77; PULSE 87–102; RESP 8–22; TEMP 97.5–98.8; O2SAT 95–100
[2025-04-25 07:11] LABS: Hematocrit 26.3 % (36.0-46.0); Hemoglobin 8.4 g/dL (12.2-16.2); Mean Corpuscular Hemoglobin 20.7 pg (28.0-32.0); Mean Corpuscular Volume 64.5 fL (80.0-100.0); Nucleated Red Blood Cells % 0.0 %
[2025-04-25 07:20] LABS: Alanine Aminotransferase 16 U/L (7-40); Albumin 3.9 g/dL (3.2-4.8); Alkaline Phosphatase 75 U/L (46-116); Anion Gap 9 (5-15); BUN/Creatinine Ratio 10.8 (10.0-20.0); Blood Urea Nitrogen 10 mg/dL (9-23); Calcium 8.8 mg/dL (8.7-10.4); Carbon Dioxide 25 mmol/L (20-31); Chloride 103 mmol/L (98-107); Magnesium 1.8 mg/dL (1.6-2.6); Potassium 3.8 mmol/L (3.5-5.1); Sodium 137 mmol/L (136-145); Total Protein 7.4 g/dL (5.7-8.2)
[2025-04-25 07:21] LABS: Bilirubin, Total 0.4 mg/dL (0.2-1.0)
[2025-04-25 07:29] LABS: Glucose 127 mg/dL (74-106)
--- NOTE | 2025-04-25 08:44 | DVHPN2 ---
Reviewed: Care Plan, H&P, Labs, Medications, Previous Orders, Radiology Changes from previous H/P or p: No Changes Eyes: No Pain, No Vision change, No Conjunctivae inflammation, No Eyelid inflammation, No Other, No Redness ENT: No Ear pain, No Ear discharge, No Nose pain, No Nose discharge, No Nose congestion, No Mouth pain, No Mouth swelling, No Throat pain, No Throat swelling, No Other Cardiovascular: No Chest Pain, No Palpitations, No Orthopnea, No Paroxysmal Noc. Dyspnea, No Edema, No Lt Headedness, No Other Respiratory: No Cough, No Dry, No Shortness of breath, No SOB with excertion, No Wheezing, No Hemoptysis, No Pleuritic Pain, No Sputum, No Other Gastrointestinal: Nausea, Vomiting, Abdominal Pain; No Diarrhea; Constipation; No Melena, No Hematochezia, No Other Genitourinary: No Dysuria, No Frequency, No Incontinence, No Hematuria, No Retention, No Other Musculoskeletal: No other, No neck pain, No shoulder pain, No arm pain, No back pain, No hand pain, No leg pain, No foot pain Skin: No Rash, No Lesions, No Jaundice, No Bruising, No Other Objective Vitals Vital Signs Date Time Temp Pulse Resp B/P (MAP) Pulse Ox O2 Delivery O2 Flow Rate FiO2 04/25/25 08:21 98.2 89 17 127/66 (86) 96 98.2 04/24/25 20:00 Room Air* 0 21 Intake/Output Intake and Output 04/25/25 07:00 Intake Total 860 ml Balance 860 ml Intake Oral 460 ml IV Total 400 ml # Voids 5 Medications Current Medications Medications Dose Ordered Sig/Gladys Route Start Time Stop Time Status Last Admin Dose Admin Acetaminophen/ Hydrocodone Bitart 1 tab Q4HP PRN PO 04/22/25 01:15 Hold Ondansetron HCl 4 mg Q4HP PRN IV 04/22/25 01:15 04/25/25 05:24 4 MG Enoxaparin Sodium 40 mg DAILY SC 04/22/25 10:00 04/24/25 09:55 40 MG Acetaminophen 650 mg Q6HP PRN PO 04/22/25 01:15 04/24/25 15:48 650 MG Morphine Sulfate 2 mg Q4HPRN PRN IV 04/22/25 01:15 04/25/25 05:24 2 MG Nitroglycerin 0.4 mg Q5MINP PRN SL 04/22/25 01:15 Morphine Sulfate 2 mg Q30M PRN IV 04/22/25 01:15 Metronidazole 100 ml @ 100 mls/hr Q8HR IV 04/22/25 08:00 04/25/25 05:24 100 MLS/HR Insulin Glargine 10 units DAILY@1000 SC 04/22/25 10:00 04/24/25 11:53 10 UNITS Diagnostic Test (Pha) 1 strip ACHS 04/22/25 07:00 04/25/25 06:46 1 STRIP Insulin Human Regular ACHS SC 04/22/25 07:00 04/24/25 21:59 2 UNITS Dextrose 50 ml UD PRN IV 04/22/25 01:30 Ciprofloxacin 200 ml @ 200 mls/hr BID IV 04/22/25 10:00 04/24/25 21:37 200 MLS/HR Amino Acids 0 ml @ 0 mls/hr PER PHARMACY IV 04/22/25 13:30 Amino Acids/ Electrolytes/ Dextrose 1,000 ml @ 41 mls/hr DAILY@2200 IV 04/22/25 22:00 04/24/25 21:37 41 MLS/HR Laboratory Results Laboratory Tests 04/25/25 05:20 Chemistry Test 04/25/25 05:20 Albumin 3.9 g/dL (3.2-4.8) Calcium Level 8.8 mg/dL (8.7-10.4) Magnesium Level 1.8 mg/dL (1.6-2.6) Phosphorus Level 3.2 mg/dL (2.4-5.1) Total Protein 7.4 g/dL (5.7-8.2) LFT Test 04/25/25 05:20 Alanine Aminotransferase (ALT) 16 U/L (7-40) Alkaline Phosphatase 75 U/L (46-116) Aspartate Amino Transferase (AST) 21 U/L (13-40) Total Bilirubin 0.4 mg/dL (0.2-1.0) Urinalysis Test 04/21/25 22:23 Urine Color Light-yellow (Yellow) Urine Clarity Clear (Clear) Urine pH 6.0 (5.0-9.0) Urine Specific [place] 1.020 (1.001-1.035) Urine Protein Negative (Negative) Urine Ketones Negative (Negative) Urine Blood Negative /uL (Negative) Urine Nitrite Negative (Negative) Urine Bilirubin Negative (Negative) Urine Urobilinogen Normal mg/dL (Negative) Urine Leukocyte Esterase Negative /uL (Negative) Urine RBC 1 /hpf (0 - 4) Urine Microscopic WBC 2 /HPF (0-5) Urine Squamous Epithelial Cells Few /hpf (<5) Urine Bacteria Few /hpf (None Seen) H Urine Glucose 4+ mg/dL (Normal) H Microbiology Microbiology Date/Time Source Procedure Growth Status 04/21/25 23:52 Blood Blood Culture - Preliminary NO GROWTH AFTER 72 HOURS OF INCUBATION. Resulted Labs and/or images reviewed: Labs reviewed by me, Image(s) reviewed by me Assessment/Plan Assessment/Plan Septic shock secondary to pericolonic abscess Radiology consult for drainage per radiology there is no abscess, but it is a mass, MRI confirms possible pericolonic abscess and possible malignant mass Pericolonic abscess possibly secondary to diverticulitis: Surgical consult by Dr. Juarez appreciated Possible sigmoidoscopy today as per Dr. Zeferino Marti, continue Cipro and Flagyl IV Chronic microcytic anemia Acute descending colitis Elevated CEA 26 concerning for colonic malignancy Acute complicated diverticulitis Possible history of coronary artery disease Hypertension Diabetes: Insulin sliding scale Hypercholesterolemia Recurrent UTIs Time spent 55 minutes Advanced care planning time 20 minutes Patient is full code HAL Miller at bedside Son Cohlo [phone] and daughter at bedside Plan discussed with: Patient Date of Service: Apr 25, 2025 Billing Provider: SHEKHAR SRIVASTAVA MD Common Visit Codes: [id number] INP/OBS CARE(HIGH) SHEKHAR SRIVASTAVA MD Apr 25, 2025 08:44
--- NOTE | 2025-04-25 12:27 | DVH ---
AP portable chest CLINICAL INDICATION: pre-op for procedure FINDINGS: Heart size is normal. Aorta slightly tortuous. No infiltrates or effusions. No bony thoraci c abnormalities. IMPRESSION: 1. No acute cardiopulmonary pathology
[2025-04-25] MEDS ORDERED: PROPOFOL 10 MG/ML 20 ML IV ONE (12:54)
[2025-04-25] MEDS ORDERED: ONDANSETRON HCL 4 MG/2 ML VIAL ONE (12:54)
[2025-04-25] MEDS ORDERED: SODIUM CHLORIDE LOCK 10 ML ONE (12:54)
[2025-04-25] MEDS ORDERED: fentaNYL CITRATE 100 MCG/2 ML VL ONE (12:54)
[2025-04-25] MEDS ORDERED: MIDAZOLAM HCL 2MG/2ML 2ml VIAL (1mg/ml) ONE (12:54)
[2025-04-25] MEDS ORDERED: KETAMINE 50mg/ML 1ml syringe ONE (12:54)
[2025-04-25] MEDS ORDERED: LIDOCAINE 1% INJ PF 5ML AMP ONE (12:54)
--- NOTE | 2025-04-25 13:25 | DVHOP2 ---
Operative Report DATE OF OPERATION: 04/25/25 PROCEDURE: Incomplete Colonoscopy with biopsy. PREOPERATIVE INDICATION: The patient is a 59 -year-old female undergoing colonoscopy for abnormal finding GI tract imaging suspected descending colon mass POSTOPERATIVE DIAGNOSES: 1. Circumferential irregular masslike stricture area seen close to the splenic flexure or proximal descending colon about 55-60 cm above the anal verge with moderate inflammatory changes and suspicion for possible contained perforation. Colonoscope was not advanced beyond this area Multiple biopsies were obtained and the distal margin was injected with [place] ink 2. Trace internal hemorrhoids otherwise normal examination up to the extent of the examination with some small amount of retained stool in the left colon PROCEDURE PERFORMED BY: Tunde Marti M.D. SCOPE: Olympus videocolonoscope. ASA CLASS: 3. PREOPERATIVE MEDICATIONS: Dr. Jen Nunez PROCEDURE IN DETAIL: After obtaining an informed consent, the patient was placed on left lateral decubitus position. She was then sedated with the above medications. A rectal examination was performed that was normal. The colonoscope was then passed through the anus into the rectosigmoid and through the descending up to the area of the splenic flexure At about 55-60 cm of the anal verge there was an area of circumferential narrowing inflammation masslike tissue and beyond this there was a smaller opening which was possibly suspicious for a opening into a contained perforation The colonoscope was not advanced beyond this area. Multiple biopsies were obtained. The distal margin was injected with [place] ink. The remaining left colon was essentially unremarkable except for a small amount of retained stool in the left colon. Trace internal hemorrhoids The colonoscope was then withdrawn with careful visualization of all butt. The patient tolerated the procedure well without difficulty. WITHDRAWAL TIME: Not applicable QUALITY OF THE PREP: [place] Bowel Prep score: Not applicable COMPLICATIONS : None SPECIMENS: Splenic flexure mass like edge biopsies DISPOSITION: Transfer back to the floor Stable PLAN: 1. Surgical follow up as the patient will likely need exploratory laparotomy possible colectomy 2. Keep NPO and continue IV Clinimix 3. Continue IV antibiotics 4. Monitor labs 5. Discussed with Dr. Jason Juarez standing by for emergent intervention if c linically indicated TUNDE MARTI MD Apr 25, 2025 13:25
[2025-04-26 05:00] VITALS: BP_SYST 106; BP_SYST 160; BP_DIAS 68; BP_DIAS 69; PULSE 96; RESP 17; TEMP 98.5; O2SAT 98
[2025-04-26 07:29] LABS: Alanine Aminotransferase 18 U/L (7-40); Albumin 3.7 g/dL (3.2-4.8); Alkaline Phosphatase 72 U/L (46-116); Anion Gap 10 (5-15); BUN/Creatinine Ratio 9.8 (10.0-20.0); Calcium 8.7 mg/dL (8.7-10.4); Carbon Dioxide 23 mmol/L (20-31); Chloride 103 mmol/L (98-107); Magnesium 1.8 mg/dL (1.6-2.6); Potassium 3.8 mmol/L (3.5-5.1); Sodium 136 mmol/L (136-145); Total Protein 7.4 g/dL (5.7-8.2)
[2025-04-26 07:30] LABS: Bilirubin, Total 0.4 mg/dL (0.2-1.0); Blood Urea Nitrogen 9 mg/dL (9-23); Glucose 136 mg/dL (74-106); Hemoglobin 8.3 g/dL (12.2-16.2)
[2025-04-26 07:35] LABS: Hematocrit 26.7 % (36.0-46.0); Mean Corpuscular Hemoglobin 20.0 pg (28.0-32.0); Mean Corpuscular Volume 64.8 fL (80.0-100.0); Nucleated Red Blood Cells % 0.0 %
--- NOTE | 2025-04-26 08:51 | DVHPN2 ---
Reviewed: Care Plan, H&P, Labs, Medications, Previous Orders, Radiology Changes from previous H/P or p: No Changes Eyes: No Pain, No Vision change, No Conjunctivae inflammation, No Eyelid inflammation, No Other, No Redness ENT: No Ear pain, No Ear discharge, No Nose pain, No Nose discharge, No Nose congestion, No Mouth pain, No Mouth swelling, No Throat pain, No Throat swelling, No Other Cardiovascular: No Chest Pain, No Palpitations, No Orthopnea, No Paroxysmal Noc. Dyspnea, No Edema, No Lt Headedness, No Other Respiratory: No Cough, No Dry, No Shortness of breath, No SOB with excertion, No Wheezing, No Hemoptysis, No Pleuritic Pain, No Sputum, No Other Gastrointestinal: Nausea, Vomiting, Abdominal Pain; No Diarrhea; Constipation; No Melena, No Hematochezia, No Other Genitourinary: No Dysuria, No Frequency, No Incontinence, No Hematuria, No Retention, No Other Musculoskeletal: No other, No neck pain, No shoulder pain, No arm pain, No back pain, No hand pain, No leg pain, No foot pain Skin: No Rash, No Lesions, No Jaundice, No Bruising, No Other Objective Vitals Vital Signs Date Time Temp Pulse Resp B/P (MAP) Pulse Ox O2 Delivery O2 Flow Rate FiO2 04/26/25 05:00 98.5 96 17 106/69 (81) 98 98.5 04/25/25 20:00 Room Air* 0 21 Intake/Output Intake and Output 04/26/25 07:00 Intake Total 350 ml Balance 350 ml Intake Oral 0 ml IV Total 350 ml # Voids 5 Medications Current Medications Medications Dose Ordered Sig/Gladys Route Start Time Stop Time Status Last Admin Dose Admin Acetaminophen/ Hydrocodone Bitart 1 tab Q4HP PRN PO 04/22/25 01:15 Hold Ondansetron HCl 4 mg Q4HP PRN IV 04/22/25 01:15 04/26/25 02:52 4 MG Enoxaparin Sodium 40 mg DAILY SC 04/22/25 10:00 04/24/25 09:55 40 MG Acetaminophen 650 mg Q6HP PRN PO 04/22/25 01:15 04/26/25 06:34 650 MG Morphine Sulfate 2 mg Q4HPRN PRN IV 04/22/25 01:15 04/26/25 02:53 2 MG Nitroglycerin 0.4 mg Q5MINP PRN SL 04/22/25 01:15 Morphine Sulfate 2 mg Q30M PRN IV 04/22/25 01:15 Metronidazole 100 ml @ 100 mls/hr Q8HR IV 04/22/25 08:00 04/26/25 05:16 100 MLS/HR Insulin Glargine 10 units DAILY@1000 SC 04/22/25 10:00 04/25/25 11:08 10 UNITS Diagnostic Test (Pha) 1 strip ACHS 04/22/25 07:00 04/26/25 06:29 1 STRIP Insulin Human Regular ACHS SC 04/22/25 07:00 04/26/25 06:28 2 UNITS Dextrose 50 ml UD PRN IV 04/22/25 01:30 Ciprofloxacin 200 ml @ 200 mls/hr BID IV 04/22/25 10:00 04/25/25 22:45 200 MLS/HR Amino Acids 0 ml @ 0 mls/hr PER PHARMACY IV 04/22/25 13:30 Amino Acids/ Electrolytes/ Dextrose 1,000 ml @ 41 mls/hr DAILY@2200 IV 04/22/25 22:00 04/25/25 21:19 41 MLS/HR Laboratory Results Laboratory Tests 04/26/25 05:09 Chemistry Test 04/26/25 05:09 Albumin 3.7 g/dL (3.2-4.8) Calcium Level 8.7 mg/dL (8.7-10.4) Magnesium Level 1.8 mg/dL (1.6-2.6) Phosphorus Level 2.7 mg/dL (2.4-5.1) Total Protein 7.4 g/dL (5.7-8.2) LFT Test 04/26/25 05:09 Alanine Aminotransferase (ALT) 18 U/L (7-40) Alkaline Phosphatase 72 U/L (46-116) Aspartate Amino Transferase (AST) 24 U/L (13-40) Total Bilirubin 0.4 mg/dL (0.2-1.0) Urinalysis Test 04/21/25 22:23 Urine Color Light-yellow (Yellow) Urine Clarity Clear (Clear) Urine pH 6.0 (5.0-9.0) Urine Specific [place] 1.020 (1.001-1.035) Urine Protein Negative (Negative) Urine Ketones Negative (Negative) Urine Blood Negative /uL (Negative) Urine Nitrite Negative (Negative) Urine Bilirubin Negative (Negative) Urine Urobilinogen Normal mg/dL (Negative) Urine Leukocyte Esterase Negative /uL (Negative) Urine RBC 1 /hpf (0 - 4) Urine Microscopic WBC 2 /HPF (0-5) Urine Squamous Epithelial Cells Few /hpf (<5) Urine Bacteria Few /hpf (None Seen) H Urine Glucose 4+ mg/dL (Normal) H Microbiology Microbiology Date/Time Source Procedure Growth Status 04/21/25 23:52 Blood Blood Culture - Preliminary NO GROWTH AFTER 72 HOURS OF INCUBATION. Resulted Labs and/or images reviewed: Labs reviewed by me, Image(s) reviewed by me Assessment/Plan Assessment/Plan Septic shock secondary to pericolonic abscess Radiology consult for drainage per radiology there is no abscess, but it is a mass, MRI confirms possible pericolonic abscess and possible malignant mass, Cipro Flagyl IV Pericolonic abscess possibly secondary to diverticulitis: Surgical consult by Dr. Juarez appreciated Status post colonoscopy by GI Dr. Zeferino Marti with the following findings: 1. Circumferential irregular masslike stricture area seen close to the splenic flexure or proximal descending colon about 55-60 cm above the anal verge with moderate inflammatory changes and suspicion for possible contained perforation. Colonoscope was not advanced beyond this area Multiple biopsies were obtained and the distal margin was injected with Leora ink 2. Trace internal hemorrhoids otherwise normal examination up to the extent of the examination with some small amount of retained stool in the left colon Chronic microcytic anemia Acute descending colitis Elevated CEA 26 concerning for colonic malignancy Acute complicated diverticulitis Possible history of coronary artery disease Hypertension Diabetes: Insulin sliding scale Hypercholesterolemia Recurrent UTIs Time spent 55 minutes Advanced care planning time 20 minutes Patient is full code HAL Buck at bedside Son Cholo [phone] and daughter at bedside Plan discussed with: Patient My Orders Orders - SHEKHAR SRIVASTAVA MD Procedure Category Date Status Time Complete Blood Count LAB 04/28/25 Verified 04:00 Comprehensive LAB 04/28/25 Verified Metabolic Panel 04:00 Date of Service: Apr 26, 2025 Billing Provider: SHEKHAR SRIVASTAVA MD Common Visit Codes: [id number] INP/OBS CARE(HIGH) SHEKHAR SRIVASTAVA MD Apr 26, 2025 08:51
[2025-04-26 09:13] VITALS: BP 123/69; PULSE 88; RESP 17; TEMP 97.4; O2SAT 98
[2025-04-26] MEDS: GOLYTELY 4L KIT PO ONE ×2 (10:24→10:25)
--- NOTE | 2025-04-26 11:06 | DVHPN2 ---
Progress Note Date Seen: Apr 26, 2025 Has the PT tested + for MRSA If YES, has PT been informed?: No Medical Necessity Reason Pt with a Central, PICC or Fol: No Objective vital signs Vital Sign Date Time Temp Pulse Resp B/P (MAP) Pulse Ox O2 Delivery O2 Flow Rate FiO2 04/26/25 09:26 88 17 123/69 04/26/25 09:13 97.4 98 97.4 04/25/25 20:00 Room Air* 0 21 Total Intake and Output 04/25/25 04/25/25 04/26/25 15:00 23:00 07:00 Intake Total 350 ml 0 ml 0 ml Balance 350 ml 0 ml 0 ml medications Current Medications Medications Dose Ordered Sig/Gladys Route Start Time Stop Time Status Last Admin Dose Admin Acetaminophen/ Hydrocodone Bitart 1 tab Q4HP PRN PO 04/22/25 01:15 Hold Ondansetron HCl 4 mg Q4HP PRN IV 04/22/25 01:15 04/26/25 02:52 4 MG Enoxaparin Sodium 40 mg DAILY SC 04/22/25 10:00 04/26/25 09:27 40 MG Acetaminophen 650 mg Q6HP PRN PO 04/22/25 01:15 04/26/25 06:34 650 MG Morphine Sulfate 2 mg Q4HPRN PRN IV 04/22/25 01:15 04/26/25 09:26 2 MG Nitroglycerin 0.4 mg Q5MINP PRN SL 04/22/25 01:15 Morphine Sulfate 2 mg Q30M PRN IV 04/22/25 01:15 Metronidazole 100 ml @ 100 mls/hr Q8HR IV 04/22/25 08:00 04/26/25 05:16 100 MLS/HR Insulin Glargine 10 units DAILY@1000 SC 04/22/25 10:00 04/26/25 10:03 10 UNITS Diagnostic Test (Pha) 1 strip ACHS 04/22/25 07:00 04/26/25 11:00 1 STRIP Insulin Human Regular ACHS SC 04/22/25 07:00 04/26/25 06:28 2 UNITS Dextrose 50 ml UD PRN IV 04/22/25 01:30 Ciprofloxacin 200 ml @ 200 mls/hr BID IV 04/22/25 10:00 04/26/25 09:34 200 MLS/HR Amino Acids 0 ml @ 0 mls/hr PER PHARMACY IV 04/22/25 13:30 Amino Acids/ Electrolytes/ Dextrose 1,000 ml @ 41 mls/hr DAILY@2200 IV 04/22/25 22:00 04/25/25 21:19 41 MLS/HR laboratory and microbiology Laboratory Tests 04/26/25 05:09 Test 04/26/25 05:09 Range/Units Serum Glucose 136 H 74-106 mg/dL Problem List/Assessment/Plan Problem List/Assessment/Plan 04/24/25 stable but slow blood loss continues, radiologist reviewed ct scan and advised against radiological intervention. she needs a colonoscopy to evaluate for possible tumor, I will order an MRI in case 04/26/25 PATIENT WILL NEED LEFT COLECTOMY, WILL TRY TO GIVE GOLYTELY IN ORDER TO AVOID A COLOSTOMY, OPERATION RISKS AND COMPLICATIONS EXPLAINED IN DETAIL Plan discussed with: Patient Dietary Evaluation Review Comments: 1. CCHO-60 diet when medically feasible 2. Consider TPN per pharmacy for complete nutrition 3. If GI accessible, and PO not an option, TF Glucerna@55ml/hr providing 79g pro, 1584kcal 1063ml free water Expected Outcomes/Goals: controlled DM, maintain wt COURTNEY BOYD MD Apr 26, 2025 11:06
[2025-04-26] MEDS: LACTATED RINGER'S 1,000 ML IV SCH (12:04)
[2025-04-26 13:00] VITALS: BP 145/76; PULSE 87; RESP 17; TEMP 97.7; O2SAT 96
[2025-04-26 17:00] VITALS: BP 153/80; PULSE 99; RESP 18; TEMP 97.3; O2SAT 98
--- NOTE | 2025-04-26 17:22 | DVHPN2 ---
Progress Note Date Seen: Apr 26, 2025 Resident Creating Document: ALYSON KLEIN RESIDENT Has the PT tested + for MRSA If YES, has PT been informed?: No Medical Necessity Reason Pt with a Central, PICC or Fol: No Subjective Review of Systems Patient examined at bedside today. She continues to complain of persistent abdominal pain localized to the left flank/LLQ. She remains NPO and is currently receiving IV Clinimix for nutritional support (last volume 816 mL infused). Pain is being managed with morphine IV PRN. She recently underwent colonoscopy with biopsy, which revealed an irregular circumferential mass-like stricture at the proximal descending colon (5560 cm from anal verge) with suspicion for contained perforation. Biopsies were obtained, and distal margin tattooed with Leora ink. Patient is now scheduled for exploratory laparotomy with left hemicolectomy and possible colostomy tomorrow. She verbalizes abdominal pain but denies hematemesis, melena, or hematochezia. No nausea or vomiting reported today. Interval Progress * IR evaluation previously showed no drainable abscess, findings suggestive of mass/contained perforation. * MRI Abdomen (04/25/25): Moderate to marked wall thickening of descending colon with colitis, contained perforation, inflammatory changes, and possible phlegmon. No discrete peripherally enhancing abscess. Edema/enhancement of left iliacus and psoas consistent with inflammatory spread. * CEA: 26.91, elevated, concerning for malignancy. * Hemoglobin: 8.3 g/dL (down from 9.5 earlier), microcytic, hypochromic, consistent with chronic blood loss anemia. * Labs: Electrolytes stable, Cr 0.92, GFR 72. LFTs within normal range. Mild hypocalcemia (Ca 8.7). * Surgery: Patient is cleared and scheduled for laparotomy with left hemicolectomy and possible colostomy tomorrow AM. Objective vital signs Vital Sign Date Time Temp Pulse Resp B/P (MAP) Pulse Ox O2 Delivery O2 Flow Rate FiO2 04/26/25 17:00 97.3 99 18 153/80 (104) 98 97.3 04/26/25 08:00 Room Air* 0 21 Total Intake and Output 04/25/25 04/25/25 04/26/25 15:00 23:00 07:00 Intake Total 350 ml 0 ml 0 ml Balance 350 ml 0 ml 0 ml medications Current Medications Medications Dose Ordered Sig/Gladys Route Start Time Stop Time Status Last Admin Dose Admin Acetaminophen/ Hydrocodone Bitart 1 tab Q4HP PRN PO 04/22/25 01:15 Hold Ondansetron HCl 4 mg Q4HP PRN IV 04/22/25 01:15 04/26/25 13:18 4 MG Enoxaparin Sodium 40 mg DAILY SC 04/22/25 10:00 04/26/25 09:27 40 MG Acetaminophen 650 mg Q6HP PRN PO 04/22/25 01:15 04/26/25 06:34 650 MG Morphine Sulfate 2 mg Q4HPRN PRN IV 04/22/25 01:15 04/26/25 15:12 2 MG Nitroglycerin 0.4 mg Q5MINP PRN SL 04/22/25 01:15 Morphine Sulfate 2 mg Q30M PRN IV 04/22/25 01:15 Metronidazole 100 ml @ 100 mls/hr Q8HR IV 04/22/25 08:00 04/26/25 13:31 100 MLS/HR Insulin Glargine 10 units DAILY@1000 SC 04/22/25 10:00 04/26/25 10:03 10 UNITS Diagnostic Test (Pha) 1 strip ACHS 04/22/25 07:00 04/26/25 11:00 1 STRIP Insulin Human Regular ACHS SC 04/22/25 07:00 04/26/25 06:28 2 UNITS Dextrose 50 ml UD PRN IV 04/22/25 01:30 Ciprofloxacin 200 ml @ 200 mls/hr BID IV 04/22/25 10:00 04/26/25 09:34 200 MLS/HR Amino Acids 0 ml @ 0 mls/hr PER PHARMACY IV 04/22/25 13:30 Amino Acids/ Electrolytes/ Dextrose 1,000 ml @ 41 mls/hr DAILY@2200 IV 04/22/25 22:00 04/25/25 21:19 41 MLS/HR Lactated Ringer's 1,000 ml @ 125 mls/hr Q8H IV 04/26/25 11:15 04/26/25 12:04 125 MLS/HR Examination * Abdomen: Distended, tender in LLQ and left flank, mild guarding, no rebound tenderness, bowel sounds present but hypoactive. * General: Patient appears uncomfortable but hemodynamically stable. * No jaundice, no hepatosplenomegaly, no ascites noted. laboratory and microbiology Laboratory Tests 04/26/25 05:09 Test 04/26/25 05:09 Range/Units Serum Glucose 136 H 74-106 mg/dL Microbiology Date/Time Source Procedure Growth Status 04/21/25 23:52 Blood Blood Culture - Preliminary NO GROWTH AFTER 72 HOURS OF INCUBATION. Resulted Problem List/Assessment/Plan Problem List/Assessment/Plan Assessment 1. Colonic mass with suspected malignancy (rule out adenocarcinoma vs inflammatory stricture) 2. Elevated CEA concerning for malignancy 3. Diverticulitis with contained perforation and inflammatory phlegmon 4. Microcytic hypochromic anemia likely secondary to chronic blood loss 5. Abnormal GI imaging CT and MRI confirm mass-like thickening, stranding, and contained perforation 6. Left flank/LLQ abdominal pain secondary to above Treatment Plan Gastrointestinal * Maintain NPO in preparation for surgery. * Continue IV Clinimix at 42 mL/hr for nutritional support (last 816 mL infused). * IV antibiotics (broad spectrum currently on Clindamycin; recommend escalation to Zosyn or Cefepime + Metronidazole given contained perforation risk). * Scheduled for laparotomy + left hemicolectomy with possible colostomy tomorrow. * Daily abdominal exams to monitor for peritonitis. Hematology * Monitor CBC daily. * Transfuse PRBC if Hgb <7.0 g/dL or symptomatic anemia. * Iron panel and ferritin for workup of chronic blood loss anemia. Infectious Disease * Continue IV antibiotics as above. * Monitor WBC, CRP, blood cultures if febrile. Fluids / Electrolytes / Nutrition * Continue IV fluids, Clinimix for parenteral nutrition support. * Monitor electrolytes (K, Mg, Ca, Phos) daily, replete as needed. Pain / Symptom Control * Continue IV morphine PRN for abdominal pain. * Avoid NSAIDs given CKD and anemia. Prophylaxis * GI prophylaxis: IV PPI (Pantoprazole). Plan discussed with: Patient Dietary Evaluation Review Comments: 1. CCHO-60 diet when medically feasible 2. Consider TPN per pharmacy for complete nutrition 3. If GI accessible, and PO not an option, TF Glucerna@55ml/hr providing 79g pro, 1584kcal 1063ml free water Expected Outcomes/Goals: controlled DM, maintain wt ALYSON KLEIN RESIDENT Apr 26, 2025 17:22
[2025-04-26 20:00] VITALS: PULSE 118; RESP 18; O2SAT 97
[2025-04-26 21:00] VITALS: BP 151/89; PULSE 118; RESP 18; TEMP 98.1; O2SAT 97
[2025-04-27] VITALS (9 sets, daily range): BP systolic 124–162; BP diastolic 65–80; PULSE 74–116; RESP 14–20; TEMP 97.5–99.1; O2SAT 97–99
[2025-04-27 07:03] LABS: Hematocrit 25.3 % (36.0-46.0); Nucleated Red Blood Cells % 0.0 %
[2025-04-27 07:06] LABS: Alanine Aminotransferase 25 U/L (7-40); Albumin 3.6 g/dL (3.2-4.8); Alkaline Phosphatase 67 U/L (46-116); Anion Gap 10 (5-15); BUN/Creatinine Ratio 9.3 (10.0-20.0); Carbon Dioxide 23 mmol/L (20-31); Chloride 106 mmol/L (98-107); Hemoglobin 7.9 g/dL (12.2-16.2); Magnesium 1.6 mg/dL (1.6-2.6); Mean Corpuscular Hemoglobin 20.3 pg (28.0-32.0); Mean Corpuscular Volume 65.3 fL (80.0-100.0); Sodium 139 mmol/L (136-145); Total Protein 6.7 g/dL (5.7-8.2)
[2025-04-27 07:07] LABS: Bilirubin, Total 0.3 mg/dL (0.2-1.0)
[2025-04-27 07:11] LABS: Blood Urea Nitrogen 8 mg/dL (9-23); Calcium 8.5 mg/dL (8.7-10.4); Glucose 133 mg/dL (74-106); Potassium 3.2 mmol/L (3.5-5.1)
--- NOTE | 2025-04-27 08:10 | DVHPN2 ---
Reviewed: Care Plan, H&P, Labs, Medications, Previous Orders, Radiology Changes from previous H/P or p: No Changes Eyes: No Pain, No Vision change, No Conjunctivae inflammation, No Eyelid inflammation, No Other, No Redness ENT: No Ear pain, No Ear discharge, No Nose pain, No Nose discharge, No Nose congestion, No Mouth pain, No Mouth swelling, No Throat pain, No Throat swelling, No Other Cardiovascular: No Chest Pain, No Palpitations, No Orthopnea, No Paroxysmal Noc. Dyspnea, No Edema, No Lt Headedness, No Other Respiratory: No Cough, No Dry, No Shortness of breath, No SOB with excertion, No Wheezing, No Hemoptysis, No Pleuritic Pain, No Sputum, No Other Gastrointestinal: Nausea, Vomiting, Abdominal Pain; No Diarrhea; Constipation; No Melena, No Hematochezia, No Other Genitourinary: No Dysuria, No Frequency, No Incontinence, No Hematuria, No Retention, No Other Musculoskeletal: No other, No neck pain, No shoulder pain, No arm pain, No back pain, No hand pain, No leg pain, No foot pain Skin: No Rash, No Lesions, No Jaundice, No Bruising, No Other Objective Vitals Vital Signs Date Time Temp Pulse Resp B/P (MAP) Pulse Ox O2 Delivery O2 Flow Rate FiO2 04/27/25 05:00 97.5 98 18 135/79 (97) 99 97.5 04/26/25 20:00 Room Air* 0 21 Intake/Output Intake and Output 04/27/25 07:00 Intake Total 300 ml Balance 300 ml Intake Oral 0 ml IV Total 300 ml # Voids 6 # Bowel Movements 10 Medications Current Medications Medications Dose Ordered Sig/Gladys Route Start Time Stop Time Status Last Admin Dose Admin Acetaminophen/ Hydrocodone Bitart 1 tab Q4HP PRN PO 04/22/25 01:15 Hold Ondansetron HCl 4 mg Q4HP PRN IV 04/22/25 01:15 04/27/25 01:32 4 MG Enoxaparin Sodium 40 mg DAILY SC 04/22/25 10:00 04/26/25 09:27 40 MG Acetaminophen 650 mg Q6HP PRN PO 04/22/25 01:15 04/26/25 06:34 650 MG Morphine Sulfate 2 mg Q4HPRN PRN IV 04/22/25 01:15 04/27/25 01:33 2 MG Nitroglycerin 0.4 mg Q5MINP PRN SL 04/22/25 01:15 Morphine Sulfate 2 mg Q30M PRN IV 04/22/25 01:15 Metronidazole 100 ml @ 100 mls/hr Q8HR IV 04/22/25 08:00 04/27/25 06:06 100 MLS/HR Insulin Glargine 10 units DAILY@1000 SC 04/22/25 10:00 04/26/25 10:03 10 UNITS Diagnostic Test (Pha) 1 strip ACHS 04/22/25 07:00 04/27/25 06:26 1 STRIP Insulin Human Regular ACHS SC 04/22/25 07:00 04/26/25 22:11 3 UNITS Dextrose 50 ml UD PRN IV 04/22/25 01:30 Ciprofloxacin 200 ml @ 200 mls/hr BID IV 04/22/25 10:00 04/26/25 23:20 200 MLS/HR Amino Acids 0 ml @ 0 mls/hr PER PHARMACY IV 04/22/25 13:30 Amino Acids/ Electrolytes/ Dextrose 1,000 ml @ 41 mls/hr DAILY@2200 IV 04/22/25 22:00 04/26/25 22:21 41 MLS/HR Lactated Ringer's 1,000 ml @ 125 mls/hr Q8H IV 04/26/25 11:15 04/26/25 12:04 125 MLS/HR Laboratory Results Laboratory Tests 04/27/25 05:16 Chemistry Test 04/27/25 05:16 Albumin 3.6 g/dL (3.2-4.8) Calcium Level 8.5 mg/dL (8.7-10.4) L Magnesium Level 1.6 mg/dL (1.6-2.6) Phosphorus Level 2.2 mg/dL (2.4-5.1) L Total Protein 6.7 g/dL (5.7-8.2) LFT Test 04/27/25 05:16 Alanine Aminotransferase (ALT) 25 U/L (7-40) Alkaline Phosphatase 67 U/L (46-116) Aspartate Amino Transferase (AST) 41 U/L (13-40) H Total Bilirubin 0.3 mg/dL (0.2-1.0) Urinalysis Test 04/21/25 22:23 Urine Color Light-yellow (Yellow) Urine Clarity Clear (Clear) Urine pH 6.0 (5.0-9.0) Urine Specific [place] 1.020 (1.001-1.035) Urine Protein Negative (Negative) Urine Ketones Negative (Negative) Urine Blood Negative /uL (Negative) Urine Nitrite Negative (Negative) Urine Bilirubin Negative (Negative) Urine Urobilinogen Normal mg/dL (Negative) Urine Leukocyte Esterase Negative /uL (Negative) Urine RBC 1 /hpf (0 - 4) Urine Microscopic WBC 2 /HPF (0-5) Urine Squamous Epithelial Cells Few /hpf (<5) Urine Bacteria Few /hpf (None Seen) H Urine Glucose 4+ mg/dL (Normal) H Microbiology Microbiology Date/Time Source Procedure Growth Status 04/21/25 23:52 Blood Blood Culture - Final NO GROWTH AFTER 5 DAYS OF INCUBATION. Complete Labs and/or images reviewed: Labs reviewed by me, Image(s) reviewed by me Assessment/Plan Assessment/Plan Septic shock secondary to pericolonic abscess Radiology consult for drainage per radiology there is no abscess, but it is a mass, MRI confirms possible pericolonic abscess and possible malignant mass, Cipro Flagyl IV Pericolonic abscess possibly secondary to diverticulitis: Surgical consult by Dr. Juarez appreciated Status post colonoscopy by GI Dr. Zeferino Marti with the following findings: 1. Circumferential irregular masslike stricture area seen close to the splenic flexure or proximal descending colon about 55-60 cm above the anal verge with moderate inflammatory changes and suspicion for possible contained perforation. Colonoscope was not advanced beyond this area Multiple biopsies were obtained and the distal margin was injected with Leora ink 2. Trace internal hemorrhoids otherwise normal examination up to the extent of the examination with some small amount of retained stool in the left colon Chronic microcytic anemia Acute descending colitis Elevated CEA 26 concerning for colonic malignancy Acute complicated diverticulitis Possible history of coronary artery disease Hypertension Diabetes: Insulin sliding scale Hypercholesterolemia Recurrent UTIs Time spent 55 minutes Advanced care planning time 20 minutes Patient is full code HAL Bukc at bedside Son Cholo [phone] and daughter at bedside Patient is scheduled to undergo left colectomy by Dr. Juarez on 04/27/2025 Plan discussed with: Patient My Orders Orders - SHEKHAR SRIVASTAVA MD Procedure Category Date Status Time * Beam Sealer CONS 04/26/25 Transmitted Consult Insert Midline ORDERS 04/26/25 Transmitted 11:42 Date of Service: Apr 27, 2025 Billing Provider: SHEKHAR SRIVASTAVA MD Common Visit Codes: [id number] INP/OBS CARE(HIGH) SHEKHAR SRIVASTAVA MD Apr 27, 2025 08:10
[2025-04-27] MEDS ORDERED: HYDROmorphone HCL 2 MG/ML VL/or syr IV PRN (09:30)
[2025-04-27] MEDS ORDERED: MORPHINE SULFATE 4 MG/ML SYR/VIAL IV PRN (09:30)
[2025-04-27] MEDS: KETOROLAC TROMETH 30 MG/ML 1ML VIAL IV ONE (09:30)
[2025-04-27] MEDS ORDERED: KETAMINE 50mg/ML 1ml syringe ONE (09:42)
[2025-04-27] MEDS ORDERED: LIDOCAINE 1% INJ PF 5ML AMP ONE (09:43)
[2025-04-27] MEDS ORDERED: MIDAZOLAM HCL 2MG/2ML 2ml VIAL (1mg/ml) ONE (09:43)
[2025-04-27] MEDS ORDERED: SODIUM CHLORIDE LOCK 50 ML ONE (09:43)
[2025-04-27] MEDS ORDERED: ROCURONIUM 10MG/ML 10ML VIAL IV ONE (09:43)
[2025-04-27] MEDS ORDERED: HYDROmorphone HCL 2 MG/ML VL/or syr ONE (09:43)
[2025-04-27] MEDS ORDERED: ONDANSETRON HCL 4 MG/2 ML VIAL ONE (09:43)
[2025-04-27] MEDS ORDERED: PROPOFOL 10 MG/ML 20 ML IV ONE (09:43)
[2025-04-27] MEDS ORDERED: fentaNYL CITRATE 100 MCG/2 ML VL ONE (09:43)
[2025-04-27] MEDS ORDERED: MORPHINE SULFATE INJ 2 MG/ml SYRG IV PRN (11:00)
[2025-04-27] MEDS: ceFAZolin 2 GM/D5W50ml 50 ML IV ONE (11:31)
[2025-04-27] MEDS: GADOTERATE MEG 10 MMOL/20ml INJ (0.5MMOL/ml) IV ONE (11:35)
[2025-04-27] MEDS: LIDOCAINE W/ EPINEPHRINE 1% 20ML VIAL ONE (12:20)
[2025-04-27] MEDS: BUPIVACAINE HCL 0.25% P/F 10 ML VIAL ONE (12:20)
--- NOTE | 2025-04-27 12:34 | DVHPN2 ---
Progress Note - Dictate Date Seen: Apr 27, 2025 Has the PT tested + for MRSA If YES, has PT been informed?: No Medical Necessity Reason Pt with a Central, PICC or Fol: No Subjective Patient was seen in preop CT MRI findings reviewed with the patient Pathology preliminary from colonoscopy was negative for malignancy Elevated CEA and suspicion for a colonic mass vital signs Vital Sign Date Time Temp Pulse Resp B/P (MAP) Pulse Ox O2 Delivery O2 Flow Rate FiO2 04/27/25 09:40 84 18 131/73 04/27/25 08:51 99.1 97 99.1 04/27/25 08:00 Room Air* 0 21 Total Intake and Output 04/26/25 04/26/25 04/27/25 15:00 23:00 07:00 Intake Total 300 ml 0 ml 0 ml Balance 300 ml 0 ml 0 ml medications Current Medications Medications Dose Ordered Sig/Gladys Route Start Time Stop Time Status Last Admin Dose Admin Acetaminophen/ Hydrocodone Bitart 1 tab Q4HP PRN PO 04/22/25 01:15 Hold Ondansetron HCl 4 mg Q4HP PRN IV 04/22/25 01:15 04/27/25 08:05 4 MG Enoxaparin Sodium 40 mg DAILY SC 04/22/25 10:00 04/26/25 09:27 40 MG Acetaminophen 650 mg Q6HP PRN PO 04/22/25 01:15 04/26/25 06:34 650 MG Morphine Sulfate 2 mg Q4HPRN PRN IV 04/22/25 01:15 04/27/25 08:22 2 MG Nitroglycerin 0.4 mg Q5MINP PRN SL 04/22/25 01:15 Morphine Sulfate 2 mg Q30M PRN IV 04/22/25 01:15 Metronidazole 100 ml @ 100 mls/hr Q8HR IV 04/22/25 08:00 04/27/25 06:06 100 MLS/HR Insulin Glargine 10 units DAILY@1000 SC 04/22/25 10:00 04/26/25 10:03 10 UNITS Diagnostic Test (Pha) 1 strip ACHS 04/22/25 07:00 04/27/25 06:26 1 STRIP Insulin Human Regular ACHS SC 04/22/25 07:00 04/26/25 22:11 3 UNITS Dextrose 50 ml UD PRN IV 04/22/25 01:30 Ciprofloxacin 200 ml @ 200 mls/hr BID IV 04/22/25 10:00 04/26/25 23:20 200 MLS/HR Amino Acids 0 ml @ 0 mls/hr PER PHARMACY IV 04/22/25 13:30 Amino Acids/ Electrolytes/ Dextrose 1,000 ml @ 41 mls/hr DAILY@2200 IV 04/22/25 22:00 04/26/25 22:21 41 MLS/HR Lactated Ringer's 1,000 ml @ 125 mls/hr Q8H IV 04/26/25 11:15 04/26/25 12:04 125 MLS/HR Morphine Sulfate 2 mg Q4H PRN IV 04/27/25 09:30 04/27/25 13:31 Morphine Sulfate 1 mg Q30M PRN IV 04/27/25 11:00 04/27/25 13:01 objective Well-developed well-nourished lady no acute distress Pupils equal and react to light, extraocular movements intact Lungs are clear, CVS S1-S2 regular rate rhythm Abdomen is soft nontender nondistended Extremities without clubbing cyanosis or edema Neuro she is alert oriented x3 with no focal deficit laboratory and microbiology Laboratory Tests 04/27/25 05:16 Test 04/27/25 05:16 Range/Units Serum Glucose 133 H 74-106 mg/dL Problems(with codes): (1) Abnormal finding on GI tract imaging (2) Elevated CEA (3) Colonic mass (4) Left flank pain (5) Pericolonic abscess due to diverticulitis (6) Diverticulitis Prognosis Plan Patient is going to OR for exploratory laparotomy possible partial colectomy possible primary anastomosis Postop care as per surgical team Patient will need to be NPO post surgery with NG tube to low intermittent suction Start continue IV TPN Continue IV antibiotics Dietary Evaluation Review Comments: 1. CCHO-60 diet when medically feasible 2. Consider TPN per pharmacy for complete nutrition 3. If GI accessible, and PO not an option, TF Glucerna@55ml/hr providing 79g pro, 1584kcal 1063ml free water Expected Outcomes/Goals: controlled DM, maintain wt Plan discussed with: Patient, Other (Dr Juarez) TUNDE ISIDRO MD Apr 27, 2025 12:34
[2025-04-27] MEDS ORDERED: fentaNYL CITRATE 5 ML ONE (12:55)
[2025-04-27] MEDS: POVIDONE IODINE 10 % TOPICAL OINT 30GM TOP ONE (13:23)
[2025-04-27] MEDS ORDERED: SUGAMMADEX 200mg/2ml Vial (100MG/ML) IV ONE (13:29)
[2025-04-27] MEDS: ACETAMINOPHEN IV 1000 MG/100ML (10MG/ML) IV ONE (14:00)
--- NOTE | 2025-04-27 14:00 | DVHOP ---
DATE OF SURGERY: 04/27/2025 PREOPERATIVE DIAGNOSIS: Left colon mass. POSTOPERATIVE DIAGNOSIS: Left colon mass. SURGEON: Jason Juarez MD LOCOMOTIVE ENGINEER DIESEL: Ventura Miranda NP ANESTHESIA: General endotracheal, Dr. Sheppard. PROCEDURES: * Exploratory laparotomy. * Left hemicolectomy. * Colocolostomy. DESCRIPTION OF PROCEDURE: Under general endotracheal anesthesia with the patient's skin prepped and draped, midline incision was made and the abdomen visually and manually explored. It contained loops of dilated colon and a mass in the descending colon, approximately midportion of the descending colon. There was no evidence of metastatic disease. However, the mass in the colon had the definite appearance of a cancer. The liver was palpated and was normal. There was no evidence of other metastatic masses or lymph nodes. The left colon was mobilized by incision along the white line of Toldt and that revealed an ulcerating penetrating mass which was densely adherent to the retroperitoneal structures. The ureter on the left was completely compressed by this mass and densely adherent into the tumor. The ureter was mobilized and with assurance of the ureter not being injured, was retracted and protected. The patient's colon was mobilized and then transected at the mid portion of the left transverse colon and the colorectal junction. Mesentery was divided between clamps and ligated with careful protection of the ureter once mobilized. With the specimen off the field, it became evident that there is residual tumor on the retroperitoneal structures. The bed of the tumor was marked with large hemoclips for postoperative identification. At this point, the abdomen was profusely irrigated with warm saline and hemostasis was meticulously accomplished. The bowel was controlled by means of bowel clamps and the two ends were anastomosed utilizing a handsewn technique with 3-0 Prolene and 3-0 Monocryl sutures for the outer and inner layer respectively. Once the anastomosis was completed, it was tested for watertightness which was indeed accomplished by milking a small amount of gas within the colon through the anastomosis with no evidence of leak. The mesentery was then approximated using 2-0 Monocryl suture. Following further irrigation, irrigant was aspirated. Hemostasis again accomplished and found to be complete. A 10 mm Abad-Castillo drain was placed into the left paracolic gutter and exteriorized through separate incision, secured with a 2-0 nylon suture. Abdomen was then closed using #1 double-stranded PDS suture and metallic skin vero. The patient remained stable throughout the procedure and left the operating room following accurate needle and sponge counts. Her family were thoroughly informed in the waiting area. MD VAMSHI Rhodes/DESIRAE TID: [id number] RECEIPT: [id number]
[2025-04-27] MEDS: METOCLOPRAMIDE HCL 5MG/ml INJ 2ml VIAL IV PRN (14:08)
[2025-04-27] MEDS: ACETAMINOPHEN IV 100 ML IV ONE (14:16)
[2025-04-27] MEDS: HYDROmorphone HCL 2 MG/ML VL/or syr IV PRN (14:17)
[2025-04-27] MEDS: HYDROmorphone HCL 2 MG/ML VL/or syr ONE ×3 (14:19→14:58)
[2025-04-27 14:47] LABS: INR 1.22 (0.9-1.15); Partial Thromboplastin Time 26.2 SEC (24.5-34.5); Prothrombin Time 12.7 sec (9.3-11.8)
--- NOTE | 2025-04-27 15:10 | DVH ---
Indication: CONFIRM NGT PLACEMENT Technique: XY CHEST PORTABLEXY Comparison: None FINDINGS/IMPRESSION: Nasogastric tube projects towards the stomach. And patchy bilateral airspace opacities with small bilateral pleural effusions. Postsurgical changes in the left abdomen, incompletely characterized.
[2025-04-27] MEDS: D5W/SOD CHL 0.45%/KCL 20MEQ 1,000 ML IV SCH (16:57)
[2025-04-27] MEDS: POTASSIUM PHOSPHATE 26.4 MEQ in SODIUM CHL 0.9% 100 ML IV ONE (17:00)
[2025-04-27] MEDS: SODIUM CHLORIDE 0.9% 1,000 ML IV ONE (17:30)
[2025-04-27] MEDS: MAGNESIUM SULFATE 1GM/100ML 100 ML IV SCH (18:00)
[2025-04-28] VITALS (8 sets, daily range): BP systolic 139–156; BP diastolic 67–83; PULSE 109–131; RESP 16–18; TEMP 97.6–99.5; O2SAT 99–100
[2025-04-28] MEDS ORDERED: KETOROLAC TROMETH 30 MG/ML 1ML VIAL IV PRN (03:00)
[2025-04-28] MEDS ORDERED: ACETAMINOPHEN 650 MG RECT SUPP PR PRN ×2 (03:00→03:45)
[2025-04-28] MEDS: KETOROLAC TROMETH 30 MG/ML 1ML VIAL IV ONE (03:57)
[2025-04-28 08:09] LABS: Alanine Aminotransferase 20 U/L (7-40); Alkaline Phosphatase 50 U/L (46-116); Anion Gap 10 (5-15); BUN/Creatinine Ratio 6.7 (10.0-20.0); Carbon Dioxide 22 mmol/L (20-31); Chloride 103 mmol/L (98-107); Potassium 3.8 mmol/L (3.5-5.1)
[2025-04-28 08:10] LABS: Albumin 2.9 g/dL (3.2-4.8); Bilirubin, Total 0.4 mg/dL (0.2-1.0); Blood Urea Nitrogen 6 mg/dL (9-23); Calcium 7.5 mg/dL (8.7-10.4); Glucose 345 mg/dL (74-106); Magnesium 1.4 mg/dL (1.6-2.6); Sodium 135 mmol/L (136-145); Total Protein 5.3 g/dL (5.7-8.2)
[2025-04-28 08:26] LABS: Hemoglobin 8.7 g/dL (12.2-16.2)
[2025-04-28 08:28] LABS: Hematocrit 27.8 % (36.0-46.0); Mean Corpuscular Hemoglobin 20.4 pg (28.0-32.0); Mean Corpuscular Volume 65.1 fL (80.0-100.0); Nucleated Red Blood Cells % 0.0 %
--- NOTE | 2025-04-28 08:37 | DVHPN2 ---
Progress Note Date Seen: Apr 28, 2025 Has the PT tested + for MRSA If YES, has PT been informed?: No Medical Necessity Reason Pt with a Central, PICC or Fol: No Objective vital signs Vital Sign Date Time Temp Pulse Resp B/P (MAP) Pulse Ox O2 Delivery O2 Flow Rate FiO2 04/28/25 08:27 112 16 140/67 04/28/25 08:00 98.9 100 98.9 04/27/25 14:56 Nasal Cannula 2.0 98 Total Intake and Output 04/27/25 04/27/25 04/28/25 15:00 23:00 07:00 Intake Total 250 ml 0 ml Output Total 250 ml 440 ml 1500 ml Balance 0 ml -440 ml -1500 ml medications Current Medications Medications Dose Ordered Sig/Gladys Route Start Time Stop Time Status Last Admin Dose Admin Acetaminophen/ Hydrocodone Bitart 1 tab Q4HP PRN PO 04/22/25 01:15 Hold Ondansetron HCl 4 mg Q4HP PRN IV 04/22/25 01:15 04/28/25 08:13 4 MG Enoxaparin Sodium 40 mg DAILY SC 04/22/25 10:00 04/26/25 09:27 40 MG Acetaminophen 650 mg Q6HP PRN PO 04/22/25 01:15 04/26/25 06:34 650 MG Morphine Sulfate 2 mg Q4HPRN PRN IV 04/22/25 01:15 04/28/25 08:27 2 MG Nitroglycerin 0.4 mg Q5MINP PRN SL 04/22/25 01:15 Morphine Sulfate 2 mg Q30M PRN IV 04/22/25 01:15 Metronidazole 100 ml @ 100 mls/hr Q8HR IV 04/22/25 08:00 04/28/25 05:34 100 MLS/HR Insulin Glargine 10 units DAILY@1000 SC 04/22/25 10:00 04/26/25 10:03 10 UNITS Diagnostic Test (Pha) 1 strip ACHS 04/22/25 07:00 04/28/25 06:58 1 STRIP Insulin Human Regular ACHS SC 04/22/25 07:00 04/28/25 06:53 8 UNITS Dextrose 50 ml UD PRN IV 04/22/25 01:30 Ciprofloxacin 200 ml @ 200 mls/hr BID IV 04/22/25 10:00 04/27/25 22:46 200 MLS/HR Amino Acids 0 ml @ 0 mls/hr PER PHARMACY IV 04/22/25 13:30 Amino Acids/ Electrolytes/ Dextrose 1,000 ml @ 41 mls/hr DAILY@2200 IV 04/22/25 22:00 04/27/25 21:44 41 MLS/HR Potassium Chloride/Dextrose/ Sod Cl 1,000 ml @ 120 mls/hr Q8H20M IV 04/27/25 13:45 04/28/25 02:30 120 MLS/HR Ketorolac Tromethamine 15 mg Q6HPRN PRN IV 04/28/25 03:00 05/03/25 02:59 Acetaminophen 650 mg Q6HP PRN [place] 04/28/25 03:45 laboratory and microbiology Laboratory Tests 04/28/25 05:12 Test 04/28/25 05:12 Range/Units Serum Glucose 345 H 74-106 mg/dL Problem List/Assessment/Plan Problem List/Assessment/Plan 04/24/25 stable but slow blood loss continues, radiologist reviewed ct scan and advised against radiological intervention. she needs a colonoscopy to evaluate for possible tumor, I will order an MRI in case 04/26/25 PATIENT WILL NEED LEFT COLECTOMY, WILL TRY TO GIVE GOLYTELY IN ORDER TO AVOID A COLOSTOMY, OPERATION RISKS AND COMPLICATIONS EXPLAINED IN DETAIL 04/28/25 PATIENT IS ALERT, COOPERATIVE AND ASKS APPROPRIATE QUESTIONS ALL OF WHICH WERE ANSWERED TO HER SATISFACTION, I EXPLAINED OPERATIVE FINDINGS AND WILL TELL HER WHEN MICTOSCOPIC DIAGNOSIS IS AVAILABLE FROM THE PATHOLOGIST, ABDOMEN IS SOFT AND NON DISTENDED, APPROPRIATELY TENDER, NEEDS TOP AMBULATE. Plan discussed with: Patient Dietary Evaluation Review Comments: 1. CCHO-60 diet when medically feasible 2. Consider TPN per pharmacy for complete nutrition 3. If GI accessible, and PO not an option, TF Glucerna@55ml/hr providing 79g pro, 1584kcal 1063ml free water Expected Outcomes/Goals: controlled DM, maintain wt COURTNEY BOYD MD Apr 28, 2025 08:37
--- NOTE | 2025-04-28 09:19 | DVHPN2 ---
Reviewed: Care Plan, H&P, Labs, Medications, Previous Orders, Radiology Changes from previous H/P or p: No Changes Eyes: No Pain, No Vision change, No Conjunctivae inflammation, No Eyelid inflammation, No Other, No Redness ENT: No Ear pain, No Ear discharge, No Nose pain, No Nose discharge, No Nose congestion, No Mouth pain, No Mouth swelling, No Throat pain, No Throat swelling, No Other Cardiovascular: No Chest Pain, No Palpitations, No Orthopnea, No Paroxysmal Noc. Dyspnea, No Edema, No Lt Headedness, No Other Respiratory: No Cough, No Dry, No Shortness of breath, No SOB with excertion, No Wheezing, No Hemoptysis, No Pleuritic Pain, No Sputum, No Other Gastrointestinal: Nausea, Vomiting, Abdominal Pain; No Diarrhea; Constipation; No Melena, No Hematochezia, No Other Genitourinary: No Dysuria, No Frequency, No Incontinence, No Hematuria, No Retention, No Other Musculoskeletal: No other, No neck pain, No shoulder pain, No arm pain, No back pain, No hand pain, No leg pain, No foot pain Skin: No Rash, No Lesions, No Jaundice, No Bruising, No Other Objective Vitals Vital Signs Date Time Temp Pulse Resp B/P (MAP) Pulse Ox O2 Delivery O2 Flow Rate FiO2 04/28/25 08:27 112 16 140/67 04/28/25 08:00 98.9 100 98.9 04/27/25 14:56 Nasal Cannula 2.0 98 Intake/Output Intake and Output 04/28/25 07:00 Intake Total 250 ml Output Total 2190 ml Balance -1940 ml Intake Oral 0 ml IV Total 250 ml Output Urine Total 1750 ml Drainage Total 440 ml # Voids 2 Medications Current Medications Medications Dose Ordered Sig/Gladys Route Start Time Stop Time Status Last Admin Dose Admin Acetaminophen/ Hydrocodone Bitart 1 tab Q4HP PRN PO 04/22/25 01:15 Hold Ondansetron HCl 4 mg Q4HP PRN IV 04/22/25 01:15 04/28/25 08:13 4 MG Enoxaparin Sodium 40 mg DAILY SC 04/22/25 10:00 04/26/25 09:27 40 MG Acetaminophen 650 mg Q6HP PRN PO 04/22/25 01:15 04/26/25 06:34 650 MG Morphine Sulfate 2 mg Q4HPRN PRN IV 04/22/25 01:15 04/28/25 08:27 2 MG Nitroglycerin 0.4 mg Q5MINP PRN SL 04/22/25 01:15 Morphine Sulfate 2 mg Q30M PRN IV 04/22/25 01:15 Metronidazole 100 ml @ 100 mls/hr Q8HR IV 04/22/25 08:00 04/28/25 05:34 100 MLS/HR Insulin Glargine 10 units DAILY@1000 SC 04/22/25 10:00 04/26/25 10:03 10 UNITS Diagnostic Test (Pha) 1 strip ACHS 04/22/25 07:00 04/28/25 06:58 1 STRIP Insulin Human Regular ACHS SC 04/22/25 07:00 04/28/25 06:53 8 UNITS Dextrose 50 ml UD PRN IV 04/22/25 01:30 Ciprofloxacin 200 ml @ 200 mls/hr BID IV 04/22/25 10:00 04/27/25 22:46 200 MLS/HR Amino Acids 0 ml @ 0 mls/hr PER PHARMACY IV 04/22/25 13:30 Amino Acids/ Electrolytes/ Dextrose 1,000 ml @ 41 mls/hr DAILY@2200 IV 04/22/25 22:00 04/27/25 21:44 41 MLS/HR Potassium Chloride/Dextrose/ Sod Cl 1,000 ml @ 120 mls/hr Q8H20M IV 04/27/25 13:45 04/28/25 02:30 120 MLS/HR Ketorolac Tromethamine 15 mg Q6HPRN PRN IV 04/28/25 03:00 05/03/25 02:59 Acetaminophen 650 mg Q6HP PRN [place] 04/28/25 03:45 Laboratory Results Laboratory Tests 04/28/25 05:12 Chemistry Test 04/28/25 05:12 Albumin 2.9 g/dL (3.2-4.8) L Calcium Level 7.5 mg/dL (8.7-10.4) L Magnesium Level 1.4 mg/dL (1.6-2.6) L Phosphorus Level 2.3 mg/dL (2.4-5.1) L Total Protein 5.3 g/dL (5.7-8.2) L Coagulation Test 04/27/25 13:38 Prothrombin Time 12.7 sec (9.3-11.8) H Prothrombin Time INR 1.22 (0.9-1.15) H Activated Partial Thromboplast Time 26.2 SEC (24.5-34.5) LFT Test 04/28/25 05:12 Alanine Aminotransferase (ALT) 20 U/L (7-40) Alkaline Phosphatase 50 U/L (46-116) Aspartate Amino Transferase (AST) 23 U/L (13-40) Total Bilirubin 0.4 mg/dL (0.2-1.0) Urinalysis Test 04/21/25 22:23 Urine Color Light-yellow (Yellow) Urine Clarity Clear (Clear) Urine pH 6.0 (5.0-9.0) Urine Specific [place] 1.020 (1.001-1.035) Urine Protein Negative (Negative) Urine Ketones Negative (Negative) Urine Blood Negative /uL (Negative) Urine Nitrite Negative (Negative) Urine Bilirubin Negative (Negative) Urine Urobilinogen Normal mg/dL (Negative) Urine Leukocyte Esterase Negative /uL (Negative) Urine RBC 1 /hpf (0 - 4) Urine Microscopic WBC 2 /HPF (0-5) Urine Squamous Epithelial Cells Few /hpf (<5) Urine Bacteria Few /hpf (None Seen) H Urine Glucose 4+ mg/dL (Normal) H Microbiology Microbiology Date/Time Source Procedure Growth Status 04/21/25 23:52 Blood Blood Culture - Final NO GROWTH AFTER 5 DAYS OF INCUBATION. 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 Juarez on 04/27/2025, biopsy report pending Septic shock secondary to pericolonic abscess Radiology consult for drainage per radiology there is no abscess, but it is a mass, MRI confirms possible pericolonic abscess and possible malignant mass, Cipro Flagyl IV Pericolonic abscess possibly secondary to diverticulitis: Surgical consult by Dr. Juarez appreciated Status post colonoscopy by GI Dr. Zeferino Marti with the following findings: Mass in the proximal descending colon Trace internal hemorrhoids Chronic microcytic anemia Acute descending colitis Elevated CEA 26 concerning for colonic malignancy Acute complicated diverticulitis Possible history of coronary artery disease Hypertension Diabetes: Insulin sliding scale Hypercholesterolemia Recurrent UTIs Nutrition Clinimix PICC line ordered Time spent 66 minutes Advanced care planning time 20 minutes Patient is full code RN Clarence at bedside Son Cholo [phone] and daughter at bedside Plan discussed with: Patient My Orders Orders - SHEKHAR SRIVASTAVA MD Procedure Category Date Status Time Complete Blood Count LAB 04/29/25 Verified 05:00 Complete Blood Count LAB 04/30/25 Verified 05:00 Complete Blood Count LAB 05/01/25 Verified 05:00 Comprehensive LAB 04/29/25 Verified Metabolic Panel 05:00 Comprehensive LAB 04/30/25 Verified Metabolic Panel 05:00 Comprehensive LAB 05/01/25 Verified Metabolic Panel 05:00 Date of Service: Apr 28, 2025 Billing Provider: SHEKHAR SRIVASTAVA MD Common Visit Codes: [id number] CARE 30-74 MIN SHEKHAR SRIVASTAVA MD Apr 28, 2025 09:18
[2025-04-28 09:37] LABS: Anisocytosis Slight; Ovalocytes FEW
[2025-04-28] MEDS: MORPHINE SULFATE 4 MG/ML SYR/VIAL IV PRN (12:10)
[2025-04-28] MEDS: LIDOCAINE 1% (LOCAL ANESTH.) PF 5ml SDV ID ONE (16:42)
[2025-04-28] MEDS: MAGNESIUM SULFATE 1GM/100ML 100 ML IV SCH (17:43)
[2025-04-28] MEDS: CALCIUM GLUC 1,000mg/50ml-NS 50 ML IV SCH (20:40)
[2025-04-28] MEDS: POTASSIUM PHOSPHATE 26.4 MEQ in SODIUM CHL 0.9% 100 ML IV ONE (21:00)
[2025-04-28] MEDS: SODIUM CHLOR 0.9% PF (SALINE LOCK) 10ML VIAL/SYR IV SCH (21:30)
[2025-04-29] VITALS (11 sets, daily range): BP systolic 139–153; BP diastolic 71–84; PULSE 111–120; RESP 14–18; TEMP 97.6–98.8; O2SAT 98–100
[2025-04-29 08:02] LABS: Mean Corpuscular Volume 65.6 fL (80.0-100.0); Nucleated Red Blood Cells % 0.0 %
[2025-04-29 08:07] LABS: Hematocrit 21.0 % (36.0-46.0); Mean Corpuscular Hemoglobin 20.5 pg (28.0-32.0)
[2025-04-29 08:12] LABS: Hemoglobin 6.6 g/dL (12.2-16.2)
[2025-04-29 08:26] LABS: Alanine Aminotransferase 12 U/L (7-40); Alkaline Phosphatase 50 U/L (46-116); Anion Gap 6 (5-15); BUN/Creatinine Ratio 9.2 (10.0-20.0); Carbon Dioxide 27 mmol/L (20-31); Chloride 99 mmol/L (98-107); Magnesium 1.9 mg/dL (1.6-2.6); Triglycerides 64.0 mg/dL (< 150)
--- NOTE | 2025-04-29 08:30 | DVHPN2 ---
Reviewed: Care Plan, H&P, Labs, Medications, Previous Orders, Radiology Changes from previous H/P or p: No Changes Eyes: No Pain, No Vision change, No Conjunctivae inflammation, No Eyelid inflammation, No Other, No Redness ENT: No Ear pain, No Ear discharge, No Nose pain, No Nose discharge, No Nose congestion, No Mouth pain, No Mouth swelling, No Throat pain, No Throat swelling, No Other Cardiovascular: No Chest Pain, No Palpitations, No Orthopnea, No Paroxysmal Noc. Dyspnea, No Edema, No Lt Headedness, No Other Respiratory: No Cough, No Dry, No Shortness of breath, No SOB with excertion, No Wheezing, No Hemoptysis, No Pleuritic Pain, No Sputum, No Other Gastrointestinal: Nausea, Vomiting, Abdominal Pain; No Diarrhea; Constipation; No Melena, No Hematochezia, No Other Genitourinary: No Dysuria, No Frequency, No Incontinence, No Hematuria, No Retention, No Other Musculoskeletal: No other, No neck pain, No shoulder pain, No arm pain, No back pain, No hand pain, No leg pain, No foot pain Skin: No Rash, No Lesions, No Jaundice, No Bruising, No Other Objective Vitals Vital Signs Date Time Temp Pulse Resp B/P (MAP) Pulse Ox O2 Delivery O2 Flow Rate FiO2 04/29/25 05:53 112 14 153/71 04/29/25 05:00 98.5 100 98.5 04/28/25 20:00 Nasal Cannula* 2 28 Intake/Output Intake and Output 04/29/25 07:00 Intake Total 250 ml Output Total 400 ml Balance -150 ml Intake Oral 0 ml IV Total 250 ml Output Urine Total 400 ml Medications Current Medications Medications Dose Ordered Sig/Gladys Route Start Time Stop Time Status Last Admin Dose Admin Acetaminophen/ Hydrocodone Bitart 1 tab Q4HP PRN PO 04/22/25 01:15 Hold Ondansetron HCl 4 mg Q4HP PRN IV 04/22/25 01:15 04/29/25 05:54 4 MG Enoxaparin Sodium 40 mg DAILY SC 04/22/25 10:00 04/28/25 11:43 40 MG Acetaminophen 650 mg Q6HP PRN PO 04/22/25 01:15 04/26/25 06:34 650 MG Nitroglycerin 0.4 mg Q5MINP PRN SL 04/22/25 01:15 Morphine Sulfate 2 mg Q30M PRN IV 04/22/25 01:15 Metronidazole 100 ml @ 100 mls/hr Q8HR IV 04/22/25 08:00 04/29/25 05:29 100 MLS/HR Insulin Glargine 10 units DAILY@1000 SC 04/22/25 10:00 04/28/25 12:02 10 UNITS Diagnostic Test (Pha) 1 strip ACHS 04/22/25 07:00 04/29/25 06:07 1 STRIP Insulin Human Regular ACHS SC 04/22/25 07:00 04/29/25 06:19 3 UNITS Dextrose 50 ml UD PRN IV 04/22/25 01:30 Ciprofloxacin 200 ml @ 200 mls/hr BID IV 04/22/25 10:00 04/28/25 22:00 200 MLS/HR Amino Acids 0 ml @ 0 mls/hr PER PHARMACY IV 04/22/25 13:30 Amino Acids/ Electrolytes/ Dextrose 1,000 ml @ 41 mls/hr DAILY@2200 IV 04/22/25 22:00 04/28/25 20:51 41 MLS/HR Potassium Chloride/Dextrose/ Sod Cl 1,000 ml @ 120 mls/hr Q8H20M IV 04/27/25 13:45 04/28/25 23:05 120 MLS/HR Ketorolac Tromethamine 15 mg Q6HPRN PRN IV 04/28/25 03:00 05/03/25 02:59 Cancel Acetaminophen 650 mg Q6HP PRN [place] 04/28/25 03:45 Morphine Sulfate 4 mg Q4HPRN PRN IV 04/28/25 11:00 04/29/25 05:53 4 MG Sodium Chloride 10 ml QSHIFT@10,22 IV 04/28/25 22:00 04/28/25 21:30 10 ML Laboratory Results Laboratory Tests 04/29/25 07:05 Chemistry Test 04/29/25 07:05 Albumin Pending Calcium Level Pending Magnesium Level Pending Phosphorus Level Pending Total Protein Pending Lipid panel Test 04/29/25 07:05 Triglycerides Level Pending LFT Test 04/29/25 07:05 Alanine Aminotransferase (ALT) Pending Alkaline Phosphatase Pending Aspartate Amino Transferase (AST) Pending Total Bilirubin Pending Urinalysis Test 04/21/25 22:23 Urine Color Light-yellow (Yellow) Urine Clarity Clear (Clear) Urine pH 6.0 (5.0-9.0) Urine Specific [place] 1.020 (1.001-1.035) Urine Protein Negative (Negative) Urine Ketones Negative (Negative) Urine Blood Negative /uL (Negative) Urine Nitrite Negative (Negative) Urine Bilirubin Negative (Negative) Urine Urobilinogen Normal mg/dL (Negative) Urine Leukocyte Esterase Negative /uL (Negative) Urine RBC 1 /hpf (0 - 4) Urine Microscopic WBC 2 /HPF (0-5) Urine Squamous Epithelial Cells Few /hpf (<5) Urine Bacteria Few /hpf (None Seen) H Urine Glucose 4+ mg/dL (Normal) H Microbiology Microbiology Date/Time Source Procedure Growth Status 04/21/25 23:52 Blood Blood Culture - Final NO GROWTH AFTER 5 DAYS OF INCUBATION. 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 Juarez on 04/27/2025, biopsy report pending Septic shock secondary to pericolonic abscess Radiology consult for drainage per radiology there is no abscess, but it is a mass, MRI confirms possible pericolonic abscess and possible malignant mass, Cipro Flagyl IV Pericolonic abscess possibly secondary to diverticulitis: Surgical consult by Dr. Juarez appreciated Status post colonoscopy by GI Dr. Zefeirno Marti with the following findings: Mass in the proximal descending colon Trace internal hemorrhoids Chronic microcytic anemia Acute descending colitis Elevated CEA 26 concerning for colonic malignancy Acute complicated diverticulitis Possible history of coronary artery disease Hypertension Diabetes: Insulin sliding scale Hypercholesterolemia Recurrent UTIs Nutrition Clinimix PICC line ordered Post op blood loss anemia expected complication after major surgery: Hemoglobin down from 8.7 to 6.6, transfuse 1 unit of RBC, check CBC Wednesday morning Time spent 66 minutes Advanced care planning time 20 minutes Patient is full code HAL Lima at bedside Son Cholo [phone] and daughter at bedside Plan discussed with: Patient My Orders Orders - SHEKHAR SRIVASTAVA MD Procedure Category Date Status Time * Picc Line Consult CONS 04/28/25 Transmitted 09:16 Transfer Orders XFER 04/28/25 Transmitted 10:47 Morphine Sulfate PHA 04/28/25 In Process Injection 11:00 Nursing Protocol Picc KATRIN 04/28/25 In Process 16:33 Change Dressing Prn [facility] 04/28/25 In Process 16:33 PICC BD 04/28/25 Transmitted 16:33 Sodium Chloride Lock PHA 04/28/25 In Process (Saline Lock Ns) 22:00 Do Not Use Picc For [facility] 04/28/25 In Process Blood Cult 16:33 May Draw Blood From [facility] 04/28/25 In Process Picc 16:33 Ok To Use Picc [facility] 04/28/25 In Process 16:33 Change Picc Dressing [facility] 04/28/25 In Process Q7 Days 16:33 Date of Service: Apr 29, 2025 Billing Provider: SHEKHAR SRIVASTAVA MD Common Visit Codes: [id number] INP/OBS CARE(HIGH) SHEKHAR SRIVASTAVA MD Apr 29, 2025 08:30
[2025-04-29 08:36] LABS: Albumin 2.7 g/dL (3.2-4.8); Bilirubin, Total 0.3 mg/dL (0.2-1.0); Blood Urea Nitrogen 8 mg/dL (9-23); Calcium 7.5 mg/dL (8.7-10.4); Potassium 3.3 mmol/L (3.5-5.1); Sodium 132 mmol/L (136-145); Total Protein 5.0 g/dL (5.7-8.2)
[2025-04-29 08:38] LABS: Glucose 464 mg/dL (74-106)
[2025-04-29] MEDS ORDERED: DEXTROSE (50%) 50ML SYRG IV SCH ×2 (09:30)
[2025-04-29] MEDS: InsuLIN REG 1unit/0.01ml Soln (100units/ml) SC ONE (09:58)
--- NOTE | 2025-04-29 10:40 | DVHPN2 ---
Subjective Date Seen: Apr 29, 2025 Post op day Post op day: 2 General: Normal HNT: Normal Cardiovascular: Normal Respiratory: Normal Gastrointestinal: Nausea, Abdominal Pain Genitourinary: Normal Musculoskeletal: Normal Neurological: Normal Objective Vitals Vital Sign Date Time Temp Pulse Resp B/P (MAP) Pulse Ox O2 Delivery O2 Flow Rate FiO2 04/29/25 10:14 111 16 150/77 04/29/25 08:51 98.2 99 98.2 04/28/25 20:00 Nasal Cannula* 2 28 Total Intake and Output 04/28/25 04/28/25 04/29/25 15:00 23:00 07:00 Intake Total 100 ml 150 ml 0 ml Output Total 400 ml Balance 100 ml -250 ml 0 ml Medications Current Medications Medications Dose Ordered Sig/Gladys Route Start Time Stop Time Status Last Admin Dose Admin Acetaminophen/ Hydrocodone Bitart 1 tab Q4HP PRN PO 04/22/25 01:15 Hold Ondansetron HCl 4 mg Q4HP PRN IV 04/22/25 01:15 04/29/25 10:08 4 MG Enoxaparin Sodium 40 mg DAILY SC 04/22/25 10:00 04/28/25 11:43 40 MG Acetaminophen 650 mg Q6HP PRN PO 04/22/25 01:15 04/26/25 06:34 650 MG Nitroglycerin 0.4 mg Q5MINP PRN SL 04/22/25 01:15 Morphine Sulfate 2 mg Q30M PRN IV 04/22/25 01:15 Metronidazole 100 ml @ 100 mls/hr Q8HR IV 04/22/25 08:00 04/29/25 05:29 100 MLS/HR Insulin Glargine 10 units DAILY@1000 SC 04/22/25 10:00 04/29/25 10:00 10 UNITS Ciprofloxacin 200 ml @ 200 mls/hr BID IV 04/22/25 10:00 04/29/25 09:47 200 MLS/HR Amino Acids 0 ml @ 0 mls/hr PER PHARMACY IV 04/22/25 13:30 Amino Acids/ Electrolytes/ Dextrose 1,000 ml @ 41 mls/hr DAILY@2200 IV 04/22/25 22:00 04/28/25 20:51 41 MLS/HR Potassium Chloride/Dextrose/ Sod Cl 1,000 ml @ 120 mls/hr Q8H20M IV 04/27/25 13:45 04/29/25 10:00 120 MLS/HR Ketorolac Tromethamine 15 mg Q6HPRN PRN IV 04/28/25 03:00 05/03/25 02:59 Cancel Acetaminophen 650 mg Q6HP PRN [place] 04/28/25 03:45 Morphine Sulfate 4 mg Q4HPRN PRN IV 04/28/25 11:00 04/29/25 10:14 4 MG Sodium Chloride 10 ml QSHIFT@10,22 IV 04/28/25 22:00 04/29/25 10:00 10 ML Diagnostic Test (Pha) 1 strip AC 04/29/25 11:30 Cancel Insulin Human Regular FOLLOW SLIDING SCALE AC SC 04/29/25 11:30 Cancel Dextrose 50 ml UD IV 04/29/25 09:30 Cancel Diagnostic Test (Pha) 1 strip Q6HR 04/29/25 12:00 Insulin Human Regular FOLLOW SLIDING SCALE Q6HR SC 04/29/25 12:00 Dextrose 50 ml UD IV 04/29/25 09:30 General: Normal, Well developed, Obese Head/Eyes: Normal ENT: Normal Neck: Normal Lungs: Normal, Normal inspection Cardiovascular: Normal, Regular rate and rhythm Abdominal: Soft, No distension, Other (tender around opsite ) Musculoskeletal: Normal Labs and Microbiology Laboratory Tests 04/29/25 07:05 Test 04/29/25 07:05 Range/Units Serum Glucose 464 *H 74-106 mg/dL Ass/Plan Labs and/or images reviewed: Labs reviewed by me, Image(s) reviewed by me Problem List 04/24/25 stable but slow blood loss continues, radiologist reviewed ct scan and advised against radiological intervention. she needs a colonoscopy to evaluate for possible tumor, I will order an MRI in case 04/26/25 PATIENT WILL NEED LEFT COLECTOMY, WILL TRY TO GIVE GOLYTELY IN ORDER TO AVOID A COLOSTOMY, OPERATION RISKS AND COMPLICATIONS EXPLAINED IN DETAIL 04/28/25 PATIENT IS ALERT, COOPERATIVE AND ASKS APPROPRIATE QUESTIONS ALL OF WHICH WERE ANSWERED TO HER SATISFACTION, I EXPLAINED OPERATIVE FINDINGS AND WILL TELL HER WHEN MICTOSCOPIC DIAGNOSIS IS AVAILABLE FROM THE PATHOLOGIST, ABDOMEN IS SOFT AND NON DISTENDED, APPROPRIATELY TENDER, NEEDS TOP AMBULATE. Assessment/Plan date: 04/29/2025 S/p Exploratory laparotomy, Left hemicolectomy, Colocolostomy POD#2 chief complaint: Abdominal pain and nausea. review of systems: - Reports abdominal pain. - Experiences nausea following administration of pain medication. - Denies vomiting. physical exam: - Abdomen is soft, non-distended, with appropriate tenderness upon palpation. - Surgical wounds are clean and dry with vero intact. - LINWOOD drain contains serous fluid. assessment: Post-operative patient with complaints of abdominal pain and medication-induced nausea. plan: Continue with current treatment plan. Maintain NPO status. NG tube to remain on low continuous suction. Advised to ambulate. dressing to be removed tomorrow and remain off Prognosis: Good Plan discussed with patient , Dr Juarez Visit Coding Surgery Date of Service if different f: Apr 29, 2025 Billing Provider: COURTNEY JUAREZ MD Surgery Visit Codes: [id number] INP/OBS CARE(HIGH) EDGARD LARES NP Apr 29, 2025 10:40
[2025-04-29] MEDS ORDERED: ACCU-CHEK COMFORT CURVE STRIP VI SCH (11:30)
[2025-04-29] MEDS ORDERED: InsuLIN REG 1unit/0.01ml Soln (100units/ml) SC SCH (11:30)
[2025-04-29] MEDS: ACCU-CHEK COMFORT CURVE STRIP VI SCH (12:00)
[2025-04-29] MEDS: InsuLIN REG 1unit/0.01ml Soln (100units/ml) SC SCH (12:57)
[2025-04-29] MEDS: diphenhdrAMINE HCL 50 MG/1 ML VL IV ONE (14:33)
[2025-04-29] MEDS: methylPREDNISolone SOD SUCC 125 MG/2 ML VL IV ONE (14:33)
[2025-04-29 14:53] LABS: Urine Protein, UAD TRACE (Negative)
[2025-04-29] MEDS: POTASSIUM PHOSPHATE 44 MEQ in D5W 5% 250 ML IV ONE (20:03)
[2025-04-30] VITALS (11 sets, daily range): BP systolic 126–159; BP diastolic 72–94; PULSE 74–103; RESP 14–18; TEMP 97.6–98.8; O2SAT 97–100
[2025-04-30 07:15] LABS: Hemoglobin 8.0 g/dL (12.2-16.2); Nucleated Red Blood Cells % 0.0 %
[2025-04-30 07:28] LABS: Hematocrit 25.2 % (36.0-46.0); Mean Corpuscular Hemoglobin 20.3 pg (28.0-32.0); Mean Corpuscular Volume 64.1 fL (80.0-100.0)
[2025-04-30 07:36] LABS: Alanine Aminotransferase 12 U/L (7-40); Albumin 3.2 g/dL (3.2-4.8); Alkaline Phosphatase 63 U/L (46-116); Anion Gap 7 (5-15); BUN/Creatinine Ratio 15.1 (10.0-20.0); Bilirubin, Total 0.7 mg/dL (0.2-1.0); Blood Urea Nitrogen 11 mg/dL (9-23); Carbon Dioxide 28 mmol/L (20-31); Chloride 102 mmol/L (98-107); Magnesium 2.0 mg/dL (1.6-2.6); Potassium 4.2 mmol/L (3.5-5.1); Sodium 137 mmol/L (136-145); Total Protein 6.1 g/dL (5.7-8.2)
[2025-04-30 07:39] LABS: Calcium 8.6 mg/dL (8.7-10.4); Glucose 264 mg/dL (74-106)
--- NOTE | 2025-04-30 09:35 | DVHPN2 ---
Reviewed: Care Plan, H&P, Labs, Medications, Previous Orders, Radiology Changes from previous H/P or p: No Changes Eyes: No Pain, No Vision change, No Conjunctivae inflammation, No Eyelid inflammation, No Other, No Redness ENT: No Ear pain, No Ear discharge, No Nose pain, No Nose discharge, No Nose congestion, No Mouth pain, No Mouth swelling, No Throat pain, No Throat swelling, No Other Cardiovascular: No Chest Pain, No Palpitations, No Orthopnea, No Paroxysmal Noc. Dyspnea, No Edema, No Lt Headedness, No Other Respiratory: No Cough, No Dry, No Shortness of breath, No SOB with excertion, No Wheezing, No Hemoptysis, No Pleuritic Pain, No Sputum, No Other Gastrointestinal: Nausea, Vomiting, Abdominal Pain; No Diarrhea; Constipation; No Melena, No Hematochezia, No Other Genitourinary: No Dysuria, No Frequency, No Incontinence, No Hematuria, No Retention, No Other Musculoskeletal: No other, No neck pain, No shoulder pain, No arm pain, No back pain, No hand pain, No leg pain, No foot pain Skin: No Rash, No Lesions, No Jaundice, No Bruising, No Other Objective Vitals Vital Signs Date Time Temp Pulse Resp B/P (MAP) Pulse Ox O2 Delivery O2 Flow Rate FiO2 04/30/25 08:00 86 18 97 Nasal Cannula* 2 28 04/30/25 06:22 158/87 04/30/25 05:00 97.6 97.6 Intake/Output Intake and Output 04/30/25 07:00 Intake Total 670.41 ml Output Total 2150 ml Balance -1479.59 ml Intake Oral 0 ml Blood Product 335 ml Other 335.41 ml Output Urine Total 2050 ml Drainage Total 100 ml Medications Current Medications Medications Dose Ordered Sig/Gladys Route Start Time Stop Time Status Last Admin Dose Admin Acetaminophen/ Hydrocodone Bitart 1 tab Q4HP PRN PO 04/22/25 01:15 Hold Ondansetron HCl 4 mg Q4HP PRN IV 04/22/25 01:15 04/30/25 05:52 4 MG Enoxaparin Sodium 40 mg DAILY SC 04/22/25 10:00 04/28/25 11:43 40 MG Acetaminophen 650 mg Q6HP PRN PO 04/22/25 01:15 04/26/25 06:34 650 MG Nitroglycerin 0.4 mg Q5MINP PRN SL 04/22/25 01:15 Morphine Sulfate 2 mg Q30M PRN IV 04/22/25 01:15 Metronidazole 100 ml @ 100 mls/hr Q8HR IV 04/22/25 08:00 04/30/25 05:51 100 MLS/HR Insulin Glargine 10 units DAILY@1000 SC 04/22/25 10:00 04/29/25 10:00 10 UNITS Ciprofloxacin 200 ml @ 200 mls/hr BID IV 04/22/25 10:00 04/29/25 21:56 200 MLS/HR Amino Acids 0 ml @ 0 mls/hr PER PHARMACY IV 04/22/25 13:30 Amino Acids/ Electrolytes/ Dextrose 1,000 ml @ 41 mls/hr DAILY@2200 IV 04/22/25 22:00 04/29/25 20:54 41 MLS/HR Potassium Chloride/Dextrose/ Sod Cl 1,000 ml @ 120 mls/hr Q8H20M IV 04/27/25 13:45 04/29/25 15:45 120 MLS/HR Ketorolac Tromethamine 15 mg Q6HPRN PRN IV 04/28/25 03:00 05/03/25 02:59 Cancel Acetaminophen 650 mg Q6HP PRN NC 04/28/25 03:45 Morphine Sulfate 4 mg Q4HPRN PRN IV 04/28/25 11:00 04/30/25 05:52 4 MG Sodium Chloride 10 ml QSHIFT@10,22 IV 04/28/25 22:00 04/29/25 21:01 10 ML Diagnostic Test (Pha) 1 strip AC 04/29/25 11:30 Cancel Insulin Human Regular FOLLOW SLIDING SCALE AC SC 04/29/25 11:30 Cancel Dextrose 50 ml UD IV 04/29/25 09:30 Cancel Diagnostic Test (Pha) 1 strip Q6HR 04/29/25 12:00 04/30/25 06:08 1 STRIP Insulin Human Regular FOLLOW SLIDING SCALE Q6HR SC 04/29/25 12:00 04/30/25 06:08 8 UNITS Dextrose 50 ml UD IV 04/29/25 09:30 Laboratory Results Laboratory Tests 04/30/25 05:19 Chemistry Test 04/30/25 05:19 Albumin 3.2 g/dL (3.2-4.8) Calcium Level 8.6 mg/dL (8.7-10.4) L Magnesium Level 2.0 mg/dL (1.6-2.6) Phosphorus Level 2.2 mg/dL (2.4-5.1) L Total Protein 6.1 g/dL (5.7-8.2) LFT Test 04/30/25 05:19 Alanine Aminotransferase (ALT) 12 U/L (7-40) Alkaline Phosphatase 63 U/L (46-116) Aspartate Amino Transferase (AST) 15 U/L (13-40) Total Bilirubin 0.7 mg/dL (0.2-1.0) Urinalysis Test 04/29/25 14:40 Urine Color Yellow (Yellow) Urine Clarity Clear (Clear) Urine pH 7.0 (5.0-9.0) Urine Specific [place] 1.019 (1.001-1.035) Urine Protein Trace (Negative) H Urine Ketones Trace (Negative) Urine Blood Negative /uL (Negative) Urine Nitrite Negative (Negative) Urine Bilirubin Negative (Negative) Urine Urobilinogen Normal mg/dL (Negative) Urine Leukocyte Esterase Trace /uL (Negative) Urine RBC 2 /hpf (0 - 4) Urine Microscopic WBC 5 /HPF (0-5) Urine Squamous Epithelial Cells Few /hpf (<5) Urine Bacteria Few /hpf (None Seen) H Urine Glucose 3+ mg/dL (Normal) H Microbiology Microbiology Date/Time Source Procedure Growth Status 04/21/25 23:52 Blood Blood Culture - Final NO GROWTH AFTER 5 DAYS OF INCUBATION. 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 Juarez on 04/27/2025, biopsy report pending Septic shock secondary to pericolonic abscess Radiology consult for drainage per radiology there is no abscess, but it is a mass, MRI confirms possible pericolonic abscess and possible malignant mass, Cipro Flagyl IV Pericolonic abscess possibly secondary to diverticulitis: Surgical consult by Dr. Juarez appreciated Status post colonoscopy by GI Dr. Zeferino Marti with the following findings: Mass in the proximal descending colon; Trace internal hemorrhoids Chronic microcytic anemia Acute descending colitis Elevated CEA 26 concerning for colonic malignancy Acute complicated diverticulitis Possible history of coronary artery disease Hypertension Diabetes: Insulin sliding scale Hypercholesterolemia Recurrent UTIs Nutrition Clinimix PICC line ordered Post op blood loss anemia expected complication after major surgery: Hemoglobin down from 8.7 to 6.6, transfuse 1 unit of RBC, improved to 8.0 check CBC tomorrow Time spent 66 minutes Advanced care planning time 20 minutes Patient is full code RN Clarence at bedside Son Cholo [phone] and daughter at bedside Plan discussed with: Patient My Orders Orders - SHEKHAR SRIVASTAVA MD Procedure Category Date Status Time Vital Signs KATRIN 04/29/25 In Process 16:49 Date of Service: Apr 30, 2025 Billing Provider: SHEKHAR SRIVASTAVA MD Common Visit Codes: [id number] CARE 30-74 MIN SHEKHAR SRIVASTAVA MD Apr 30, 2025 09:35
--- NOTE | 2025-04-30 10:10 | DVHPN2 ---
Progress Note Date Seen: Apr 30, 2025 Has the PT tested + for MRSA If YES, has PT been informed?: No Medical Necessity Reason Pt with a Central, PICC or Fol: No Objective vital signs Vital Sign Date Time Temp Pulse Resp B/P (MAP) Pulse Ox O2 Delivery O2 Flow Rate FiO2 04/30/25 09:52 74 16 150/90 04/30/25 08:00 97 Nasal Cannula* 2 28 04/30/25 05:00 97.6 97.6 Total Intake and Output 04/29/25 04/29/25 04/30/25 15:00 23:00 07:00 Intake Total 70.41 ml 0 ml 600 ml Output Total 800 ml 1350 ml Balance 70.41 ml -800 ml -750 ml medications Current Medications Medications Dose Ordered Sig/Gladys Route Start Time Stop Time Status Last Admin Dose Admin Acetaminophen/ Hydrocodone Bitart 1 tab Q4HP PRN PO 04/22/25 01:15 Hold Ondansetron HCl 4 mg Q4HP PRN IV 04/22/25 01:15 04/30/25 09:51 4 MG Enoxaparin Sodium 40 mg DAILY SC 04/22/25 10:00 04/30/25 09:52 40 MG Acetaminophen 650 mg Q6HP PRN PO 04/22/25 01:15 04/26/25 06:34 650 MG Nitroglycerin 0.4 mg Q5MINP PRN SL 04/22/25 01:15 Morphine Sulfate 2 mg Q30M PRN IV 04/22/25 01:15 Metronidazole 100 ml @ 100 mls/hr Q8HR IV 04/22/25 08:00 04/30/25 05:51 100 MLS/HR Insulin Glargine 10 units DAILY@1000 SC 04/22/25 10:00 04/30/25 10:05 10 UNITS Ciprofloxacin 200 ml @ 200 mls/hr BID IV 04/22/25 10:00 04/30/25 09:52 200 MLS/HR Amino Acids 0 ml @ 0 mls/hr PER PHARMACY IV 04/22/25 13:30 Amino Acids/ Electrolytes/ Dextrose 1,000 ml @ 41 mls/hr DAILY@2200 IV 04/22/25 22:00 04/29/25 20:54 41 MLS/HR Potassium Chloride/Dextrose/ Sod Cl 1,000 ml @ 120 mls/hr Q8H20M IV 04/27/25 13:45 04/30/25 09:51 120 MLS/HR Ketorolac Tromethamine 15 mg Q6HPRN PRN IV 04/28/25 03:00 05/03/25 02:59 Cancel Acetaminophen 650 mg Q6HP PRN ME 04/28/25 03:45 Morphine Sulfate 4 mg Q4HPRN PRN IV 04/28/25 11:00 04/30/25 09:52 4 MG Sodium Chloride 10 ml QSHIFT@10,22 IV 04/28/25 22:00 04/30/25 09:52 10 ML Diagnostic Test (Pha) 1 strip AC 04/29/25 11:30 Cancel Insulin Human Regular FOLLOW SLIDING SCALE AC SC 04/29/25 11:30 Cancel Dextrose 50 ml UD IV 04/29/25 09:30 Cancel Diagnostic Test (Pha) 1 strip Q6HR 04/29/25 12:00 04/30/25 06:08 1 STRIP Insulin Human Regular FOLLOW SLIDING SCALE Q6HR SC 04/29/25 12:00 04/30/25 06:08 8 UNITS Dextrose 50 ml UD IV 04/29/25 09:30 laboratory and microbiology Laboratory Tests 04/30/25 05:19 Test 04/30/25 05:19 Range/Units Serum Glucose 264 H 74-106 mg/dL Problem List/Assessment/Plan Problem List/Assessment/Plan 04/24/25 stable but slow blood loss continues, radiologist reviewed ct scan and advised against radiological intervention. she needs a colonoscopy to evaluate for possible tumor, I will order an MRI in case 04/26/25 PATIENT WILL NEED LEFT COLECTOMY, WILL TRY TO GIVE GOLYTELY IN ORDER TO AVOID A COLOSTOMY, OPERATION RISKS AND COMPLICATIONS EXPLAINED IN DETAIL 04/28/25 PATIENT IS ALERT, COOPERATIVE AND ASKS APPROPRIATE QUESTIONS ALL OF WHICH WERE ANSWERED TO HER SATISFACTION, I EXPLAINED OPERATIVE FINDINGS AND WILL TELL HER WHEN MICTOSCOPIC DIAGNOSIS IS AVAILABLE FROM THE PATHOLOGIST, ABDOMEN IS SOFT AND NON DISTENDED, APPROPRIATELY TENDER, NEEDS TOP AMBULATE. 04/30/25 no flatus, no bm, abdomen appropriately tender, wound clean and well approximated, needs to am,bulate Plan discussed with: Patient Dietary Evaluation Review Comments: 1. CCHO-60 diet when medically feasible 2. Consider TPN per pharmacy for complete nutrition 3. If GI accessible, and PO not an option, TF Glucerna@55ml/hr providing 79g pro, 1584kcal 1063ml free water Expected Outcomes/Goals: controlled DM, maintain wt COURTNEY BOYD MD Apr 30, 2025 10:10
[2025-04-30] MEDS: POTASSIUM PHOSPHATE 22 MEQ in SODIUM CHL 0.9% 100 ML IV ONE (13:58)
--- NOTE | 2025-04-30 22:02 | DVHPN2 ---
Progress Note - Dictate Date Seen: Apr 30, 2025 Has the PT tested + for MRSA If YES, has PT been informed?: No Medical Necessity Reason Pt with a Central, PICC or Fol: No Subjective Postop day number 3 S/P laparotomy and left hemicolectomy No new complaints, patient resting comfortably NG tube output bilious and minimal No passage of gas or bowel movement yet vital signs Vital Sign Date Time Temp Pulse Resp B/P (MAP) Pulse Ox O2 Delivery O2 Flow Rate FiO2 04/30/25 18:51 70 15 141/76 04/30/25 17:00 98.8 98 98.8 04/30/25 08:00 Nasal Cannula* 2 28 Total Intake and Output 04/29/25 04/29/25 04/30/25 15:00 23:00 07:00 Intake Total 70.41 ml 0 ml 600 ml Output Total 800 ml 1350 ml Balance 70.41 ml -800 ml -750 ml medications Current Medications Medications Dose Ordered Sig/Gladys Route Start Time Stop Time Status Last Admin Dose Admin Acetaminophen/ Hydrocodone Bitart 1 tab Q4HP PRN PO 04/22/25 01:15 Hold Ondansetron HCl 4 mg Q4HP PRN IV 04/22/25 01:15 04/30/25 18:21 4 MG Enoxaparin Sodium 40 mg DAILY SC 04/22/25 10:00 04/30/25 09:52 40 MG Acetaminophen 650 mg Q6HP PRN PO 04/22/25 01:15 04/26/25 06:34 650 MG Nitroglycerin 0.4 mg Q5MINP PRN SL 04/22/25 01:15 Morphine Sulfate 2 mg Q30M PRN IV 04/22/25 01:15 Metronidazole 100 ml @ 100 mls/hr Q8HR IV 04/22/25 08:00 04/30/25 13:59 100 MLS/HR Insulin Glargine 10 units DAILY@1000 SC 04/22/25 10:00 04/30/25 10:05 10 UNITS Ciprofloxacin 200 ml @ 200 mls/hr BID IV 04/22/25 10:00 04/30/25 09:52 200 MLS/HR Amino Acids 0 ml @ 0 mls/hr PER PHARMACY IV 04/22/25 13:30 Amino Acids/ Electrolytes/ Dextrose 1,000 ml @ 41 mls/hr DAILY@2200 IV 04/22/25 22:00 04/29/25 20:54 41 MLS/HR Potassium Chloride/Dextrose/ Sod Cl 1,000 ml @ 120 mls/hr Q8H20M IV 04/27/25 13:45 04/30/25 18:21 120 MLS/HR Ketorolac Tromethamine 15 mg Q6HPRN PRN IV 04/28/25 03:00 05/03/25 02:59 Cancel Acetaminophen 650 mg Q6HP PRN [place] 04/28/25 03:45 Morphine Sulfate 4 mg Q4HPRN PRN IV 04/28/25 11:00 04/30/25 18:21 4 MG Sodium Chloride 10 ml QSHIFT@10,22 IV 04/28/25 22:00 04/30/25 09:52 10 ML Diagnostic Test (Pha) 1 strip AC 04/29/25 11:30 Cancel Insulin Human Regular FOLLOW SLIDING SCALE AC SC 04/29/25 11:30 Cancel Dextrose 50 ml UD IV 04/29/25 09:30 Cancel Diagnostic Test (Pha) 1 strip Q6HR 04/29/25 12:00 04/30/25 18:22 1 STRIP Insulin Human Regular FOLLOW SLIDING SCALE Q6HR SC 04/29/25 12:00 04/30/25 18:29 4 UNITS Dextrose 50 ml UD IV 04/29/25 09:30 objective Well-developed well-nourished lady no acute distress Pupils equal and react to light, extraocular movements intact Lungs are clear, CVS S1-S2 regular rate rhythm Abdomen is soft nontender nondistended Extremities without clubbing cyanosis or edema Neuro she is alert oriented x3 with no focal deficit laboratory and microbiology Laboratory Tests 04/30/25 05:19 Test 04/30/25 05:19 Range/Units Serum Glucose 264 H 74-106 mg/dL Problems(with codes): (1) Colonic mass (2) Elevated CEA (3) Abnormal finding on GI tract imaging (4) Pericolonic abscess due to diverticulitis Prognosis Plan Continue to monitor labs Continue PPI Continue IV antibiotics Continue IV TPN Surgical follow up Await final pathology results Dietary Evaluation Review Comments: 1. CCHO-60 diet when medically feasible 2. Consider TPN per pharmacy for complete nutrition 3. If GI accessible, and PO not an option, TF Glucerna@55ml/hr providing 79g pro, 1584kcal 1063ml free water Expected Outcomes/Goals: controlled DM, maintain wt Plan discussed with: Patient CC Plasma Assessment Blood Product Administration S: [id number] TUNDE ISIDRO MD Apr 30, 2025 22:02
[2025-05-01] VITALS (8 sets, daily range): BP systolic 134–179; BP diastolic 66–90; PULSE 66–97; RESP 14–19; TEMP 97.7–98.4; O2SAT 99–100
[2025-05-01 05:42] LABS: Hematocrit 23.9 % (36.0-46.0); Hemoglobin 7.7 g/dL (12.2-16.2); Mean Corpuscular Hemoglobin 20.5 pg (28.0-32.0); Mean Corpuscular Volume 64.0 fL (80.0-100.0); Nucleated Red Blood Cells % 0.0 %
[2025-05-01 05:55] LABS: Alanine Aminotransferase 10 U/L (7-40); Anion Gap 6 (5-15); BUN/Creatinine Ratio 20.9 (10.0-20.0); Blood Urea Nitrogen 14 mg/dL (9-23); Carbon Dioxide 27 mmol/L (20-31); Chloride 104 mmol/L (98-107); Magnesium 1.8 mg/dL (1.6-2.6); Potassium 3.9 mmol/L (3.5-5.1); Sodium 137 mmol/L (136-145)
[2025-05-01 06:00] LABS: Albumin 2.9 g/dL (3.2-4.8); Alkaline Phosphatase 44 U/L (46-116); Bilirubin, Total 0.3 mg/dL (0.2-1.0); Calcium 8.0 mg/dL (8.7-10.4); Glucose 215 mg/dL (74-106); Total Protein 5.4 g/dL (5.7-8.2)
[2025-05-01] MEDS: SALINE 0.65 % NASAL SPRAY 45ML BOTTLE ONE (06:07)
--- NOTE | 2025-05-01 08:48 | DVHPN2 ---
Reviewed: Care Plan, H&P, Labs, Medications, Previous Orders, Radiology Changes from previous H/P or p: No Changes Eyes: No Pain, No Vision change, No Conjunctivae inflammation, No Eyelid inflammation, No Other, No Redness ENT: No Ear pain, No Ear discharge, No Nose pain, No Nose discharge, No Nose congestion, No Mouth pain, No Mouth swelling, No Throat pain, No Throat swelling, No Other Cardiovascular: No Chest Pain, No Palpitations, No Orthopnea, No Paroxysmal Noc. Dyspnea, No Edema, No Lt Headedness, No Other Respiratory: No Cough, No Dry, No Shortness of breath, No SOB with excertion, No Wheezing, No Hemoptysis, No Pleuritic Pain, No Sputum, No Other Gastrointestinal: Nausea, Vomiting, Abdominal Pain; No Diarrhea; Constipation; No Melena, No Hematochezia, No Other Genitourinary: No Dysuria, No Frequency, No Incontinence, No Hematuria, No Retention, No Other Musculoskeletal: No other, No neck pain, No shoulder pain, No arm pain, No back pain, No hand pain, No leg pain, No foot pain Skin: No Rash, No Lesions, No Jaundice, No Bruising, No Other Objective Vitals Vital Signs Date Time Temp Pulse Resp B/P (MAP) Pulse Ox O2 Delivery O2 Flow Rate FiO2 05/01/25 07:43 67 18 134/66 05/01/25 05:00 98.0 99 98.0 04/30/25 20:00 Nasal Cannula* 2 28 Intake/Output Intake and Output 05/01/25 07:00 Intake Total 700 ml Output Total 3345 ml Balance -2645 ml IV Total 700 ml Output Urine Total 3300 ml Other 45 ml Medications Current Medications Medications Dose Ordered Sig/Gladys Route Start Time Stop Time Status Last Admin Dose Admin Acetaminophen/ Hydrocodone Bitart 1 tab Q4HP PRN PO 04/22/25 01:15 Hold Ondansetron HCl 4 mg Q4HP PRN IV 04/22/25 01:15 05/01/25 07:40 4 MG Enoxaparin Sodium 40 mg DAILY SC 04/22/25 10:00 04/30/25 09:52 40 MG Acetaminophen 650 mg Q6HP PRN PO 04/22/25 01:15 04/26/25 06:34 650 MG Nitroglycerin 0.4 mg Q5MINP PRN SL 04/22/25 01:15 Metronidazole 100 ml @ 100 mls/hr Q8HR IV 04/22/25 08:00 05/01/25 06:08 100 MLS/HR Insulin Glargine 10 units DAILY@1000 SC 04/22/25 10:00 04/30/25 10:05 10 UNITS Ciprofloxacin 200 ml @ 200 mls/hr BID IV 04/22/25 10:00 04/30/25 22:13 200 MLS/HR Amino Acids 0 ml @ 0 mls/hr PER PHARMACY IV 04/22/25 13:30 Amino Acids/ Electrolytes/ Dextrose 1,000 ml @ 41 mls/hr DAILY@2200 IV 04/22/25 22:00 04/30/25 22:13 41 MLS/HR Potassium Chloride/Dextrose/ Sod Cl 1,000 ml @ 120 mls/hr Q8H20M IV 04/27/25 13:45 04/30/25 18:21 120 MLS/HR Ketorolac Tromethamine 15 mg Q6HPRN PRN IV 04/28/25 03:00 05/03/25 02:59 Cancel Acetaminophen 650 mg Q6HP PRN [place] 04/28/25 03:45 Morphine Sulfate 4 mg Q4HPRN PRN IV 04/28/25 11:00 05/01/25 07:43 4 MG Sodium Chloride 10 ml QSHIFT@10,22 IV 04/28/25 22:00 04/30/25 22:14 10 ML Diagnostic Test (Pha) 1 strip AC 04/29/25 11:30 Cancel Insulin Human Regular FOLLOW SLIDING SCALE AC SC 04/29/25 11:30 Cancel Dextrose 50 ml UD IV 04/29/25 09:30 Cancel Diagnostic Test (Pha) 1 strip Q6HR 04/29/25 12:00 05/01/25 06:24 1 STRIP Insulin Human Regular FOLLOW SLIDING SCALE Q6HR SC 04/29/25 12:00 05/01/25 06:25 4 UNITS Dextrose 50 ml UD IV 04/29/25 09:30 Laboratory Results Laboratory Tests 05/01/25 00:50 Chemistry Test 05/01/25 00:50 Albumin 2.9 g/dL (3.2-4.8) L Calcium Level 8.0 mg/dL (8.7-10.4) L Magnesium Level 1.8 mg/dL (1.6-2.6) Phosphorus Level 1.7 mg/dL (2.4-5.1) L Total Protein 5.4 g/dL (5.7-8.2) L LFT Test 05/01/25 00:50 Alanine Aminotransferase (ALT) 10 U/L (7-40) Alkaline Phosphatase 44 U/L (46-116) L Aspartate Amino Transferase (AST) 12 U/L (13-40) L Total Bilirubin 0.3 mg/dL (0.2-1.0) Urinalysis Test 04/29/25 14:40 Urine Color Yellow (Yellow) Urine Clarity Clear (Clear) Urine pH 7.0 (5.0-9.0) Urine Specific [place] 1.019 (1.001-1.035) Urine Protein Trace (Negative) H Urine Ketones Trace (Negative) Urine Blood Negative /uL (Negative) Urine Nitrite Negative (Negative) Urine Bilirubin Negative (Negative) Urine Urobilinogen Normal mg/dL (Negative) Urine Leukocyte Esterase Trace /uL (Negative) Urine RBC 2 /hpf (0 - 4) Urine Microscopic WBC 5 /HPF (0-5) Urine Squamous Epithelial Cells Few /hpf (<5) Urine Bacteria Few /hpf (None Seen) H Urine Glucose 3+ mg/dL (Normal) H Microbiology Microbiology Date/Time Source Procedure Growth Status 04/21/25 23:52 Blood Blood Culture - Final NO GROWTH AFTER 5 DAYS OF INCUBATION. 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 Juaerz on 04/27/2025, biopsy report pending Septic shock secondary to pericolonic abscess Radiology consult for drainage per radiology there is no abscess, but it is a mass, MRI confirms possible pericolonic abscess and possible malignant mass, Cipro Flagyl IV Pericolonic abscess possibly secondary to diverticulitis: Surgical consult by Dr. Juarez appreciated Status post colonoscopy by GI Dr. Zeferino Marti with the following findings: Mass in the proximal descending colon; Trace internal hemorrhoids Chronic microcytic anemia Acute descending colitis Elevated CEA 26 concerning for colonic malignancy Acute complicated diverticulitis Possible history of coronary artery disease Hypertension Diabetes: Insulin sliding scale Hypercholesterolemia Recurrent UTIs Nutrition Clinimix PICC line ordered Post op blood loss anemia expected complication after major surgery: Hemoglobin down from 8.7 to 6.6, transfuse 1 unit of RBC, improved to 8.0 check CBC tomorrow Time spent 66 minutes Advanced care planning time 20 minutes Patient is full code RN Clarence at bedside Son Cholo [phone] and daughter at bedside Awaiting Pathology report Plan discussed with: Patient Date of Service: May 01, 2025 Billing Provider: SHEKHAR SRIVASTAVA MD Common Visit Codes: [id number] SAME DATE (HIGH) Secondary Visit Codes: [id number] CARE PLAN 30 MINUTES SHEKHAR SRIVASTAVA MD May 01, 2025 08:48
[2025-05-01] MEDS: POTASSIUM PHOSPHATE 22 MEQ in SODIUM CHL 0.9% 100 ML IV ONE (09:30)
--- NOTE | 2025-05-01 10:13 | DVHPN2 ---
Progress Note Date Seen: May 01, 2025 Resident Creating Document: KALYN NARAYAN RESIDENT Has the PT tested + for MRSA If YES, has PT been informed?: No Medical Necessity Reason Pt with a Central, PICC or Fol: No Subjective Review of Systems Patient is a 59-year-old female with past medical history of hypertension, anemia, PUD/GERD, CKD, type 2 diabetes insulin dependent, diabetic neuropathy, dyslipidemia, possible CAD who initially came to the ER with moderate intermittent left flank pain. CT abdomen pelvis showed circumferential wall thickening of a segment of distal descending colon with pericolonic stranding. Thick walled outpouching or collection to the left of the descending colon measuring up to 5.2 cm, reflecting pericolonic abscess associated with the acute diverticulitis or colitis. A mass is also a consideration though less likely. Abdominopelvic MRI subsequently showed irregular moderate to marked wall thickening involving a loop of descending colon with marked adjacent inflammatory stranding and has been. Findings appearing most consistent with marked colitis with focal outpouching likely due to contain perforation and possible phlegmon. Surgery was subsequently consulted and patient underwent ex lap with left hemicolectomy and colocolostomy. Patient is also s/p incomplete colonoscopy which showed circumferential irregular masslike structure area close to the splenic flexure and proximal descending colon about 55-60 cm of the anal verge with moderate inflammatory changes in suspicion for possible contained perforation. Colonoscope was not advanced beyond this area. Today patient is seen and examined at bedside Patient complains of nausea, abdominal pain 6-8/10 LNIWOOD drain output 40 mL yellowish with few blood clots Minimal NG tube output Patient continues to remain on Clinimix Denies bowel movement, denies flatus Urine output 500-600 mL over 6 hours. Objective vital signs Vital Sign Date Time Temp Pulse Resp B/P (MAP) Pulse Ox O2 Delivery O2 Flow Rate FiO2 05/01/25 09:00 97.7 68 18 169/74 (105) 99 97.7 05/01/25 08:00 Nasal Cannula* 2 28 Total Intake and Output 04/30/25 04/30/25 05/01/25 15:00 23:00 07:00 Intake Total 300 ml 100 ml 300 ml Output Total 45 ml 1100 ml 2200 ml Balance 255 ml -1000 ml -1900 ml medications Current Medications Medications Dose Ordered Sig/Gladys Route Start Time Stop Time Status Last Admin Dose Admin Acetaminophen/ Hydrocodone Bitart 1 tab Q4HP PRN PO 04/22/25 01:15 Hold Ondansetron HCl 4 mg Q4HP PRN IV 04/22/25 01:15 05/01/25 07:40 4 MG Enoxaparin Sodium 40 mg DAILY SC 04/22/25 10:00 04/30/25 09:52 40 MG Acetaminophen 650 mg Q6HP PRN PO 04/22/25 01:15 04/26/25 06:34 650 MG Nitroglycerin 0.4 mg Q5MINP PRN SL 04/22/25 01:15 Metronidazole 100 ml @ 100 mls/hr Q8HR IV 04/22/25 08:00 05/01/25 06:08 100 MLS/HR Insulin Glargine 10 units DAILY@1000 SC 04/22/25 10:00 04/30/25 10:05 10 UNITS Ciprofloxacin 200 ml @ 200 mls/hr BID IV 04/22/25 10:00 04/30/25 22:13 200 MLS/HR Amino Acids 0 ml @ 0 mls/hr PER PHARMACY IV 04/22/25 13:30 Amino Acids/ Electrolytes/ Dextrose 1,000 ml @ 41 mls/hr DAILY@2200 IV 04/22/25 22:00 04/30/25 22:13 41 MLS/HR Potassium Chloride/Dextrose/ Sod Cl 1,000 ml @ 120 mls/hr Q8H20M IV 04/27/25 13:45 04/30/25 18:21 120 MLS/HR Ketorolac Tromethamine 15 mg Q6HPRN PRN IV 04/28/25 03:00 05/03/25 02:59 Cancel Acetaminophen 650 mg Q6HP PRN [place] 04/28/25 03:45 Morphine Sulfate 4 mg Q4HPRN PRN IV 04/28/25 11:00 05/01/25 07:43 4 MG Sodium Chloride 10 ml QSHIFT@10,22 IV 04/28/25 22:00 04/30/25 22:14 10 ML Diagnostic Test (Pha) 1 strip AC 04/29/25 11:30 Cancel Insulin Human Regular FOLLOW SLIDING SCALE AC SC 04/29/25 11:30 Cancel Dextrose 50 ml UD IV 04/29/25 09:30 Cancel Diagnostic Test (Pha) 1 strip Q6HR 04/29/25 12:00 05/01/25 06:24 1 STRIP Insulin Human Regular FOLLOW SLIDING SCALE Q6HR SC 04/29/25 12:00 05/01/25 06:25 4 UNITS Dextrose 50 ml UD IV 04/29/25 09:30 Examination General Appearance: Cooperative. Well developed. Well nourished. NAD Head Exam: Normal inspection Neck Exam: Normal inspection. Non-tender. Normal alignment Pulmonary/Respiratory: Chest non-tender. Clear bilateral breath sounds, no crackles, no wheezing. Cardiovascular/Chest: Regular rate and rhythm. No murmurs. No JVD. Peripheral Pulses: 2+ Pedal (R). 2+ Pedal (L) Abdominal Exam: Distended, tender in LLQ and left flank, mild guarding, no rebound tenderness, bowel sounds present but hypoactive. Neuro/Mental Status: A&O x4. Coherent. Thoughts/Psych: Normal thought pattern. Appropriate mood and affect. Good judgement and insight Skin Exam: Normal inspection. Normal color. Warm. Dry laboratory and microbiology Laboratory Tests 05/01/25 00:50 Test 05/01/25 00:50 Range/Units Serum Glucose 215 H 74-106 mg/dL Microbiology Date/Time Source Procedure Growth Status 04/21/25 23:52 Blood Blood Culture - Final NO GROWTH AFTER 5 DAYS OF INCUBATION. Complete Labs and/or images reviewed: Labs reviewed by me, Image(s) reviewed by me Problem List/Assessment/Plan Problem List/Assessment/Plan Colonic mass, suspected malignancy? S/p ex lap with left hemicolectomy Elevated CEA Acute complicated diverticulitis Pericolonic abscess due to above Sepsis due to above Chronic microcytic anemia Plan: Continue ciprofloxacin, metronidazole On Clinimix IV Protonix 40 mg daily Up to chair Thank you so much for the opportunity to consult on your patient. GI team will follow the patient. In case of any questions or concerns please feel free to reach out. Plan discussed with Dr. Marti Plan discussed with: Patient, Son, Other (RN) Dietary Evaluation Review Comments: 1. CCHO-60 diet when medically feasible 2. Consider TPN per pharmacy for complete nutrition 3. If GI accessible, and PO not an option, TF Glucerna@55ml/hr providing 79g pro, 1584kcal 1063ml free water Expected Outcomes/Goals: controlled DM, maintain wt CC Plasma Assessment Blood Product Administration S: [id number] KALYN NARAYAN RESIDENT May 01, 2025 10:13
[2025-05-01] MEDS: SODIUM PHOSPHATES 20 MEQ in SODIUM CHL 0.9% 100 ML IV ONE (18:07)
[2025-05-01] MEDS: hydrALAZINE HCL 20 MG/ML VL IV ONE (23:55)
[2025-05-02] VITALS (8 sets, daily range): BP systolic 123–189; BP diastolic 66–99; PULSE 67–122; RESP 16–19; TEMP 97.9–98.3; O2SAT 95–100
[2025-05-02] MEDS: SODIUM PHOSPHATES 20 MEQ in SODIUM CHL 0.9% 100 ML IV ONE (02:00)
[2025-05-02 06:49] LABS: Nucleated Red Blood Cells % 0.0 %
[2025-05-02 06:51] LABS: Hematocrit 29.2 % (36.0-46.0); Mean Corpuscular Hemoglobin 20.3 pg (28.0-32.0); Mean Corpuscular Volume 64.2 fL (80.0-100.0)
[2025-05-02 07:01] LABS: Alkaline Phosphatase 52 U/L (46-116); Anion Gap 10 (5-15); BUN/Creatinine Ratio 14.9 (10.0-20.0); Blood Urea Nitrogen 10 mg/dL (9-23); Carbon Dioxide 25 mmol/L (20-31); Chloride 99 mmol/L (98-107); Potassium 3.8 mmol/L (3.5-5.1); Total Protein 5.8 g/dL (5.7-8.2)
[2025-05-02 07:02] LABS: Bilirubin, Total 0.4 mg/dL (0.2-1.0)
[2025-05-02 07:03] LABS: Alanine Aminotransferase 9 U/L (7-40); Albumin 3.0 g/dL (3.2-4.8); Calcium 8.0 mg/dL (8.7-10.4); Glucose 226 mg/dL (74-106); Magnesium 1.5 mg/dL (1.6-2.6); Sodium 134 mmol/L (136-145)
[2025-05-02 07:24] LABS: Hemoglobin 9.2 g/dL (12.2-16.2)
--- NOTE | 2025-05-02 09:23 | DVHPN2 ---
Reviewed: Care Plan, H&P, Labs, Medications, Previous Orders, Radiology Changes from previous H/P or p: No Changes Eyes: No Pain, No Vision change, No Conjunctivae inflammation, No Eyelid inflammation, No Other, No Redness ENT: No Ear pain, No Ear discharge, No Nose pain, No Nose discharge, No Nose congestion, No Mouth pain, No Mouth swelling, No Throat pain, No Throat swelling, No Other Cardiovascular: No Chest Pain, No Palpitations, No Orthopnea, No Paroxysmal Noc. Dyspnea, No Edema, No Lt Headedness, No Other Respiratory: No Cough, No Dry, No Shortness of breath, No SOB with excertion, No Wheezing, No Hemoptysis, No Pleuritic Pain, No Sputum, No Other Gastrointestinal: Nausea, Vomiting, Abdominal Pain; No Diarrhea; Constipation; No Melena, No Hematochezia, No Other Genitourinary: No Dysuria, No Frequency, No Incontinence, No Hematuria, No Retention, No Other Musculoskeletal: No other, No neck pain, No shoulder pain, No arm pain, No back pain, No hand pain, No leg pain, No foot pain Skin: No Rash, No Lesions, No Jaundice, No Bruising, No Other Objective Vitals Vital Signs Date Time Temp Pulse Resp B/P (MAP) Pulse Ox O2 Delivery O2 Flow Rate FiO2 05/02/25 08:40 98.2 98 16 181/97 (125) 100 98.2 05/01/25 20:00 Nasal Cannula* 2 28 Intake/Output Intake and Output 05/02/25 07:00 Intake Total 2632 ml Output Total 4860 ml Balance -2228 ml IV Total 2632 ml Output Urine Total 4800 ml Drainage Total 60 ml Medications Current Medications Medications Dose Ordered Sig/Gladys Route Start Time Stop Time Status Last Admin Dose Admin Acetaminophen/ Hydrocodone Bitart 1 tab Q4HP PRN PO 04/22/25 01:15 Hold Ondansetron HCl 4 mg Q4HP PRN IV 04/22/25 01:15 05/02/25 08:30 4 MG Enoxaparin Sodium 40 mg DAILY SC 04/22/25 10:00 05/01/25 10:45 40 MG Acetaminophen 650 mg Q6HP PRN PO 04/22/25 01:15 04/26/25 06:34 650 MG Nitroglycerin 0.4 mg Q5MINP PRN SL 04/22/25 01:15 Metronidazole 100 ml @ 100 mls/hr Q8HR IV 04/22/25 08:00 05/02/25 06:09 100 MLS/HR Insulin Glargine 10 units DAILY@1000 SC 04/22/25 10:00 05/01/25 12:10 10 UNITS Ciprofloxacin 200 ml @ 200 mls/hr BID IV 04/22/25 10:00 05/01/25 22:41 200 MLS/HR Amino Acids 0 ml @ 0 mls/hr PER PHARMACY IV 04/22/25 13:30 Amino Acids/ Electrolytes/ Dextrose 1,000 ml @ 41 mls/hr DAILY@2200 IV 04/22/25 22:00 05/01/25 22:42 41 MLS/HR Potassium Chloride/Dextrose/ Sod Cl 1,000 ml @ 120 mls/hr Q8H20M IV 04/27/25 13:45 05/02/25 02:48 120 MLS/HR Ketorolac Tromethamine 15 mg Q6HPRN PRN IV 04/28/25 03:00 05/03/25 02:59 Cancel Acetaminophen 650 mg Q6HP PRN [place] 04/28/25 03:45 Morphine Sulfate 4 mg Q4HPRN PRN IV 04/28/25 11:00 05/02/25 08:31 4 MG Sodium Chloride 10 ml QSHIFT@10,22 IV 04/28/25 22:00 05/01/25 22:54 10 ML Diagnostic Test (Pha) 1 strip AC 04/29/25 11:30 Cancel Insulin Human Regular FOLLOW SLIDING SCALE AC SC 04/29/25 11:30 Cancel Dextrose 50 ml UD IV 04/29/25 09:30 Cancel Diagnostic Test (Pha) 1 strip Q6HR 04/29/25 12:00 05/02/25 06:38 1 STRIP Insulin Human Regular FOLLOW SLIDING SCALE Q6HR SC 04/29/25 12:00 05/02/25 06:39 8 UNITS Dextrose 50 ml UD IV 04/29/25 09:30 Pantoprazole Sodium 40 mg DAILY IV 05/02/25 10:00 Laboratory Results Laboratory Tests 05/02/25 05:24 Chemistry Test 05/02/25 05:24 Albumin 3.0 g/dL (3.2-4.8) L Calcium Level 8.0 mg/dL (8.7-10.4) L Magnesium Level 1.5 mg/dL (1.6-2.6) L Phosphorus Level 2.6 mg/dL (2.4-5.1) Total Protein 5.8 g/dL (5.7-8.2) LFT Test 05/02/25 05:24 Alanine Aminotransferase (ALT) 9 U/L (7-40) Alkaline Phosphatase 52 U/L (46-116) Aspartate Amino Transferase (AST) 13 U/L (13-40) Total Bilirubin 0.4 mg/dL (0.2-1.0) Urinalysis Test 04/29/25 14:40 Urine Color Yellow (Yellow) Urine Clarity Clear (Clear) Urine pH 7.0 (5.0-9.0) Urine Specific [place] 1.019 (1.001-1.035) Urine Protein Trace (Negative) H Urine Ketones Trace (Negative) Urine Blood Negative /uL (Negative) Urine Nitrite Negative (Negative) Urine Bilirubin Negative (Negative) Urine Urobilinogen Normal mg/dL (Negative) Urine Leukocyte Esterase Trace /uL (Negative) Urine RBC 2 /hpf (0 - 4) Urine Microscopic WBC 5 /HPF (0-5) Urine Squamous Epithelial Cells Few /hpf (<5) Urine Bacteria Few /hpf (None Seen) H Urine Glucose 3+ mg/dL (Normal) H Microbiology Microbiology Date/Time Source Procedure Growth Status 04/21/25 23:52 Blood Blood Culture - Final NO GROWTH AFTER 5 DAYS OF INCUBATION. 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 Juarez on 04/27/2025, biopsy report pending Septic shock secondary to pericolonic abscess Radiology consult for drainage per radiology there is no abscess, but it is a mass, MRI confirms possible pericolonic abscess and possible malignant mass, Cipro Flagyl IV Pericolonic abscess possibly secondary to diverticulitis: Surgical consult by Dr. Juarez appreciated Status post colonoscopy by GI Dr. Zeferino Marti with the following findings: Mass in the proximal descending colon; Trace internal hemorrhoids Chronic microcytic anemia Acute descending colitis Elevated CEA 26 concerning for colonic malignancy Acute complicated diverticulitis Possible history of coronary artery disease Hypertension Diabetes: Insulin sliding scale Hypercholesterolemia Recurrent UTIs Nutrition Clinimix PICC line ordered Post op blood loss anemia expected complication after major surgery: Hemoglobin down from 8.7 to 6.6, transfuse 1 unit of RBC, improved to 9.2 Time spent 65 minutes Advanced care planning time 20 minutes Patient is full code RN Elijah at bedside Son Cholo [phone] and daughter at bedside Awaiting Pathology report Continue NG suction, patient not passing gas yet, Physical therapy ordered Plan discussed with: Patient My Orders Orders - SHEKHAR SRIVASTAVA MD Procedure Category Date Status Time Comprehensive LAB 05/03/25 Verified Metabolic Panel 08:00 Comprehensive LAB 05/04/25 Verified Metabolic Panel 08:00 Complete Blood Count LAB 05/03/25 Verified 08:00 Complete Blood Count LAB 05/04/25 Verified 08:00 Pt Request For Service PT 05/01/25 Logged 12:32 Date of Service: May 02, 2025 Billing Provider: SHEKHAR SRIVASTAVA MD Common Visit Codes: [id number] CARE 30-74 MIN SHEKHAR SRIVASTAVA MD May 02, 2025 09:23
[2025-05-02] MEDS: PANTOPRAZOLE 40 MG/10 ML VIAL INJ IV SCH (10:32)
--- NOTE | 2025-05-02 11:09 | DVHPN2 ---
Subjective Date Seen: May 02, 2025 Post op day Post op day: 5 General: Normal HNT: Normal Cardiovascular: Normal Respiratory: Normal Gastrointestinal: Nausea, Abdominal Pain Genitourinary: Normal Musculoskeletal: Normal Neurological: Normal Objective Vitals Vital Sign Date Time Temp Pulse Resp B/P (MAP) Pulse Ox O2 Delivery O2 Flow Rate FiO2 05/02/25 08:40 98.2 98 16 181/97 (125) 100 98.2 05/01/25 20:00 Nasal Cannula* 2 28 Total Intake and Output 05/01/25 05/01/25 05/02/25 14:59 22:59 06:59 Intake Total 300 ml 2032 ml 300 ml Output Total 40 ml 2520 ml 2300 ml Balance 260 ml -488 ml -2000 ml Medications Current Medications Medications Dose Ordered Sig/Gladys Route Start Time Stop Time Status Last Admin Dose Admin Acetaminophen/ Hydrocodone Bitart 1 tab Q4HP PRN PO 04/22/25 01:15 Hold Ondansetron HCl 4 mg Q4HP PRN IV 04/22/25 01:15 05/02/25 08:30 4 MG Enoxaparin Sodium 40 mg DAILY SC 04/22/25 10:00 05/02/25 10:33 40 MG Acetaminophen 650 mg Q6HP PRN PO 04/22/25 01:15 04/26/25 06:34 650 MG Nitroglycerin 0.4 mg Q5MINP PRN SL 04/22/25 01:15 Metronidazole 100 ml @ 100 mls/hr Q8HR IV 04/22/25 08:00 05/02/25 06:09 100 MLS/HR Insulin Glargine 10 units DAILY@1000 SC 04/22/25 10:00 05/02/25 10:46 10 UNITS Ciprofloxacin 200 ml @ 200 mls/hr BID IV 04/22/25 10:00 05/02/25 10:31 200 MLS/HR Amino Acids 0 ml @ 0 mls/hr PER PHARMACY IV 04/22/25 13:30 Amino Acids/ Electrolytes/ Dextrose 1,000 ml @ 41 mls/hr DAILY@2200 IV 04/22/25 22:00 05/01/25 22:42 41 MLS/HR Potassium Chloride/Dextrose/ Sod Cl 1,000 ml @ 120 mls/hr Q8H20M IV 04/27/25 13:45 05/02/25 10:33 120 MLS/HR Ketorolac Tromethamine 15 mg Q6HPRN PRN IV 04/28/25 03:00 05/03/25 02:59 Cancel Acetaminophen 650 mg Q6HP PRN [place] 04/28/25 03:45 Morphine Sulfate 4 mg Q4HPRN PRN IV 04/28/25 11:00 05/02/25 08:31 4 MG Sodium Chloride 10 ml QSHIFT@10,22 IV 04/28/25 22:00 05/02/25 10:32 10 ML Diagnostic Test (Pha) 1 strip AC 04/29/25 11:30 Cancel Insulin Human Regular FOLLOW SLIDING SCALE AC SC 04/29/25 11:30 Cancel Dextrose 50 ml UD IV 04/29/25 09:30 Cancel Diagnostic Test (Pha) 1 strip Q6HR 04/29/25 12:00 05/02/25 06:38 1 STRIP Insulin Human Regular FOLLOW SLIDING SCALE Q6HR SC 04/29/25 12:00 05/02/25 06:39 8 UNITS Dextrose 50 ml UD IV 04/29/25 09:30 Pantoprazole Sodium 40 mg DAILY IV 05/02/25 10:00 05/02/25 10:32 40 MG Magnesium Sulfate/ Dextrose 100 ml @ 100 mls/hr Q1HR IV 05/02/25 11:00 05/02/25 12:59 General: Normal, Well developed, Obese Head/Eyes: Normal ENT: Normal Neck: Normal Lungs: Normal, Normal inspection Cardiovascular: Normal, Regular rate and rhythm Abdominal: Soft, No distension, Other (tender around opsite ) Musculoskeletal: Normal Labs and Microbiology Laboratory Tests 05/02/25 05:24 Test 05/02/25 05:24 Range/Units Serum Glucose 226 H 74-106 mg/dL Ass/Plan Labs and/or images reviewed: Labs reviewed by me, Image(s) reviewed by me Problem List Colonic mass, suspected malignancy? S/p ex lap with left hemicolectomy Elevated CEA Acute complicated diverticulitis Pericolonic abscess due to above Sepsis due to above Chronic microcytic anemia Plan: Continue ciprofloxacin, metronidazole On Clinimix IV Protonix 40 mg daily Up to chair Thank you so much for the opportunity to consult on your patient. GI team will follow the patient. In case of any questions or concerns please feel free to reach out. Plan discussed with Dr. Marti Assessment/Plan date: 04/29/2025 S/p Exploratory laparotomy, Left hemicolectomy, Colocolostomy POD#2 chief complaint: Abdominal pain and nausea. review of systems: - Reports abdominal pain. - Experiences nausea following administration of pain medication. - Denies vomiting. physical exam: - Abdomen is soft, non-distended, with appropriate tenderness upon palpation. - Surgical wounds are clean and dry with vero intact. - LINWOOD drain contains serous fluid. assessment: Post-operative patient with complaints of abdominal pain and medication-induced nausea. plan: Continue with current treatment plan. Maintain NPO status. NG tube to remain on low continuous suction. Advised to ambulate. dressing to be removed tomorrow and remain off date: 05/02/2025 S/p Exploratory laparotomy, Left hemicolectomy, Colocolostomy chief complaint: Abdominal pain and nausea. review of systems: - Reports abdominal pain. - Experiences nausea from the pain - Denies vomiting. physical exam: - Abdomen is soft, non-distended, with appropriate tenderness upon palpation. - Surgical wounds are clean and dry with vero intact. - LINWOOD drain contains minimal serous fluid. assessment: Post-operative patient with complaints of abdominal pain plan: Continue with current treatment plan. Maintain NPO status. NG tube to remain on low continuous suction. Advised to ambulate. Prognosis: Good Plan discussed with patient, Dr. Juarez Visit Coding Surgery Date of Service if different f: May 02, 2025 Billing Provider: COURTNEY JUAREZ MD Surgery Visit Codes: [id number] INP/OBS CARE(HIGH) EDGARD LARES NP May 02, 2025 11:09
[2025-05-02] MEDS: MAGNESIUM SULFATE 1GM/100ML 100 ML IV SCH (11:47)
[2025-05-02] MEDS: hydrALAZINE HCL 20 MG/ML VL IV PRN (12:09)
--- NOTE | 2025-05-02 16:02 | DVHPN2 ---
Progress Note Date Seen: May 02, 2025 Resident Creating Document: KALYN NARAYAN RESIDENT Has the PT tested + for MRSA If YES, has PT been informed?: No Medical Necessity Reason Pt with a Central, PICC or Fol: No Subjective Review of Systems Patient is a 59-year-old female with past medical history of hypertension, anemia, PUD/GERD, CKD, type 2 diabetes insulin dependent, diabetic neuropathy, dyslipidemia, possible CAD who initially came to the ER with moderate intermittent left flank pain. CT abdomen pelvis showed circumferential wall thickening of a segment of distal descending colon with pericolonic stranding. Thick walled outpouching or collection to the left of the descending colon measuring up to 5.2 cm, reflecting pericolonic abscess associated with the acute diverticulitis or colitis. A mass is also a consideration though less likely. Abdominopelvic MRI subsequently showed irregular moderate to marked wall thickening involving a loop of descending colon with marked adjacent inflammatory stranding and has been. Findings appearing most consistent with marked colitis with focal outpouching likely due to contain perforation and possible phlegmon. Surgery was subsequently consulted and patient underwent ex lap with left hemicolectomy and colocolostomy. Patient is also s/p incomplete colonoscopy which showed circumferential irregular masslike structure area close to the splenic flexure and proximal descending colon about 55-60 cm of the anal verge with moderate inflammatory changes in suspicion for possible contained perforation. Colonoscope was not advanced beyond this area. Today patient is seen and examined at bedside Patient notes improved nausea and abdominal pain Still has not been able to pass gas or bowel movement Minimal NG tube output noted Patient instructed to ambulate, however noted to have dizziness while working with physical therapy Minimal serosanguineous drainage in the LINWOOD drain Objective vital signs Vital Sign Date Time Temp Pulse Resp B/P (MAP) Pulse Ox O2 Delivery O2 Flow Rate FiO2 05/02/25 13:39 113 18 130/67 05/02/25 13:00 98.2 100 98.2 05/02/25 08:00 Nasal Cannula* 2 28 Total Intake and Output 05/01/25 05/01/25 05/02/25 15:00 23:00 07:00 Intake Total 300 ml 2032 ml 300 ml Output Total 40 ml 2520 ml 2300 ml Balance 260 ml -488 ml -2000 ml medications Current Medications Medications Dose Ordered Sig/Gladys Route Start Time Stop Time Status Last Admin Dose Admin Acetaminophen/ Hydrocodone Bitart 1 tab Q4HP PRN PO 04/22/25 01:15 Hold Ondansetron HCl 4 mg Q4HP PRN IV 04/22/25 01:15 05/02/25 13:35 4 MG Enoxaparin Sodium 40 mg DAILY SC 04/22/25 10:00 05/02/25 10:33 40 MG Acetaminophen 650 mg Q6HP PRN PO 04/22/25 01:15 04/26/25 06:34 650 MG Nitroglycerin 0.4 mg Q5MINP PRN SL 04/22/25 01:15 Metronidazole 100 ml @ 100 mls/hr Q8HR IV 04/22/25 08:00 05/02/25 13:29 100 MLS/HR Insulin Glargine 10 units DAILY@1000 SC 04/22/25 10:00 05/02/25 10:46 10 UNITS Ciprofloxacin 200 ml @ 200 mls/hr BID IV 04/22/25 10:00 05/02/25 10:31 200 MLS/HR Amino Acids 0 ml @ 0 mls/hr PER PHARMACY IV 04/22/25 13:30 Amino Acids/ Electrolytes/ Dextrose 1,000 ml @ 41 mls/hr DAILY@2200 IV 04/22/25 22:00 05/01/25 22:42 41 MLS/HR Potassium Chloride/Dextrose/ Sod Cl 1,000 ml @ 120 mls/hr Q8H20M IV 04/27/25 13:45 05/02/25 13:28 120 MLS/HR Ketorolac Tromethamine 15 mg Q6HPRN PRN IV 04/28/25 03:00 05/03/25 02:59 Cancel Acetaminophen 650 mg Q6HP PRN [place] 04/28/25 03:45 Morphine Sulfate 4 mg Q4HPRN PRN IV 04/28/25 11:00 05/02/25 13:39 4 MG Sodium Chloride 10 ml QSHIFT@10,22 IV 04/28/25 22:00 05/02/25 10:32 10 ML Diagnostic Test (Pha) 1 strip AC 04/29/25 11:30 Cancel Insulin Human Regular FOLLOW SLIDING SCALE AC SC 04/29/25 11:30 Cancel Dextrose 50 ml UD IV 04/29/25 09:30 Cancel Diagnostic Test (Pha) 1 strip Q6HR 04/29/25 12:00 05/02/25 11:53 1 STRIP Insulin Human Regular FOLLOW SLIDING SCALE Q6HR SC 04/29/25 12:00 05/02/25 12:00 8 UNITS Dextrose 50 ml UD IV 04/29/25 09:30 Pantoprazole Sodium 40 mg DAILY IV 05/02/25 10:00 05/02/25 10:32 40 MG Hydralazine HCl 10 mg Q6HP PRN IV 05/02/25 11:45 05/02/25 12:09 10 MG Examination General Appearance: Cooperative. Well developed. Well nourished. NAD Head Exam: Normal inspection Neck Exam: Normal inspection. Non-tender. Normal alignment Pulmonary/Respiratory: Chest non-tender. Clear bilateral breath sounds, no crackles, no wheezing. Cardiovascular/Chest: Regular rate and rhythm. No murmurs. No JVD. Peripheral Pulses: 2+ Pedal (R). 2+ Pedal (L) Abdominal Exam: Distended, tender in LLQ and left flank, mild guarding, no rebound tenderness, bowel sounds present but hypoactive. Neuro/Mental Status: A&O x4. Coherent. Thoughts/Psych: Normal thought pattern. Appropriate mood and affect. Good judgement and insight Skin Exam: Normal inspection. Normal color. Warm. Dry laboratory and microbiology Laboratory Tests 05/02/25 05:24 Test 05/02/25 05:24 Range/Units Serum Glucose 226 H 74-106 mg/dL Microbiology Date/Time Source Procedure Growth Status 04/21/25 23:52 Blood Blood Culture - Final NO GROWTH AFTER 5 DAYS OF INCUBATION. Complete Labs and/or images reviewed: Labs reviewed by me, Image(s) reviewed by me Problem List/Assessment/Plan Problem List/Assessment/Plan Colonic mass, suspected malignancy? S/p ex lap with left hemicolectomy Elevated CEA Acute complicated diverticulitis Pericolonic abscess due to above Sepsis due to above Chronic microcytic anemia Plan: Continue ciprofloxacin, metronidazole On Clinimix IV Protonix 40 mg daily Up to chair Awaiting final pathology results Thank you so much for the opportunity to consult on your patient. GI team will follow the patient. In case of any questions or concerns please feel free to reach out. Plan discussed with Dr. Marti Plan discussed with: Patient, Other (RN) Dietary Evaluation Review Comments: 1. CCHO-60 diet when medically feasible 2. Consider TPN per pharmacy for complete nutrition 3. If GI accessible, and PO not an option, TF Glucerna@55ml/hr providing 79g pro, 1584kcal 1063ml free water Expected Outcomes/Goals: controlled DM, maintain wt CC Plasma Assessment Blood Product Administration S: [id number] KALYN NARAYAN RESIDENT May 02, 2025 16:02
[2025-05-02] MEDS: CIPROFLOXACIN 400MG/200ML 200 ML IV SCH (23:38)
[2025-05-03] VITALS (8 sets, daily range): BP systolic 136–157; BP diastolic 67–91; PULSE 100–139; RESP 17–93; TEMP 98.1–98.6; O2SAT 92–100
[2025-05-03 08:23] LABS: Hematocrit 24.7 % (36.0-46.0); Hemoglobin 8.0 g/dL (12.2-16.2); Mean Corpuscular Hemoglobin 20.5 pg (28.0-32.0); Mean Corpuscular Volume 63.9 fL (80.0-100.0); Nucleated Red Blood Cells % 0.0 %
[2025-05-03 08:37] LABS: Alkaline Phosphatase 47 U/L (46-116); Anion Gap 7 (5-15); BUN/Creatinine Ratio 12.1 (10.0-20.0); Carbon Dioxide 26 mmol/L (20-31); Chloride 102 mmol/L (98-107); Magnesium 1.8 mg/dL (1.6-2.6); Potassium 3.8 mmol/L (3.5-5.1)
[2025-05-03 08:38] LABS: Alanine Aminotransferase < 9 U/L (7-40); Albumin 2.8 g/dL (3.2-4.8); Bilirubin, Total 0.3 mg/dL (0.2-1.0); Blood Urea Nitrogen 8 mg/dL (9-23); Calcium 8.0 mg/dL (8.7-10.4); Glucose 236 mg/dL (74-106); Sodium 135 mmol/L (136-145)
[2025-05-03 08:51] LABS: Total Protein 5.7 g/dL (5.7-8.2)
--- NOTE | 2025-05-03 09:27 | DVHPN2 ---
Reviewed: Care Plan, H&P, Labs, Medications, Previous Orders, Radiology Changes from previous H/P or p: No Changes Eyes: No Pain, No Vision change, No Conjunctivae inflammation, No Eyelid inflammation, No Other, No Redness ENT: No Ear pain, No Ear discharge, No Nose pain, No Nose discharge, No Nose congestion, No Mouth pain, No Mouth swelling, No Throat pain, No Throat swelling, No Other Cardiovascular: No Chest Pain, No Palpitations, No Orthopnea, No Paroxysmal Noc. Dyspnea, No Edema, No Lt Headedness, No Other Respiratory: No Cough, No Dry, No Shortness of breath, No SOB with excertion, No Wheezing, No Hemoptysis, No Pleuritic Pain, No Sputum, No Other Gastrointestinal: Nausea, Vomiting, Abdominal Pain; No Diarrhea; Constipation; No Melena, No Hematochezia, No Other Genitourinary: No Dysuria, No Frequency, No Incontinence, No Hematuria, No Retention, No Other Musculoskeletal: No other, No neck pain, No shoulder pain, No arm pain, No back pain, No hand pain, No leg pain, No foot pain Skin: No Rash, No Lesions, No Jaundice, No Bruising, No Other Objective Vitals Vital Signs Date Time Temp Pulse Resp B/P (MAP) Pulse Ox O2 Delivery O2 Flow Rate FiO2 05/03/25 07:42 100 05/03/25 07:42 18 100 Nasal Cannula* 2 28 05/03/25 05:00 98.2 157/68 (97) 98.2 Intake/Output Intake and Output 05/03/25 07:00 Intake Total 800 ml Output Total 2900 ml Balance -2100 ml Intake Oral 0 ml IV Total 800 ml Output Urine Total 2900 ml Medications Current Medications Medications Dose Ordered Sig/Gladys Route Start Time Stop Time Status Last Admin Dose Admin Acetaminophen/ Hydrocodone Bitart 1 tab Q4HP PRN PO 04/22/25 01:15 Hold Ondansetron HCl 4 mg Q4HP PRN IV 04/22/25 01:15 05/03/25 04:37 4 MG Enoxaparin Sodium 40 mg DAILY SC 04/22/25 10:00 05/02/25 10:33 40 MG Acetaminophen 650 mg Q6HP PRN PO 04/22/25 01:15 04/26/25 06:34 650 MG Nitroglycerin 0.4 mg Q5MINP PRN SL 04/22/25 01:15 Metronidazole 100 ml @ 100 mls/hr Q8HR IV 04/22/25 08:00 05/03/25 05:35 100 MLS/HR Insulin Glargine 10 units DAILY@1000 SC 04/22/25 10:00 05/02/25 10:46 10 UNITS Amino Acids 0 ml @ 0 mls/hr PER PHARMACY IV 04/22/25 13:30 Amino Acids/ Electrolytes/ Dextrose 1,000 ml @ 41 mls/hr DAILY@2200 IV 04/22/25 22:00 05/02/25 21:53 41 MLS/HR Potassium Chloride/Dextrose/ Sod Cl 1,000 ml @ 120 mls/hr Q8H20M IV 04/27/25 13:45 05/03/25 01:38 120 MLS/HR Ketorolac Tromethamine 15 mg Q6HPRN PRN IV 04/28/25 03:00 05/03/25 02:59 Cancel Acetaminophen 650 mg Q6HP PRN ID 04/28/25 03:45 Morphine Sulfate 4 mg Q4HPRN PRN IV 04/28/25 11:00 05/03/25 04:15 4 MG Sodium Chloride 10 ml QSHIFT@10,22 IV 04/28/25 22:00 05/03/25 04:11 10 ML Diagnostic Test (Pha) 1 strip AC 04/29/25 11:30 Cancel Insulin Human Regular FOLLOW SLIDING SCALE AC SC 04/29/25 11:30 Cancel Dextrose 50 ml UD IV 04/29/25 09:30 Cancel Diagnostic Test (Pha) 1 strip Q6HR 04/29/25 12:00 05/03/25 06:30 1 STRIP Insulin Human Regular FOLLOW SLIDING SCALE Q6HR SC 04/29/25 12:00 05/03/25 07:08 8 UNITS Dextrose 50 ml UD IV 04/29/25 09:30 Pantoprazole Sodium 40 mg DAILY IV 05/02/25 10:00 05/02/25 10:32 40 MG Hydralazine HCl 10 mg Q6HP PRN IV 05/02/25 11:45 05/03/25 01:36 10 MG Ciprofloxacin 200 ml @ 200 mls/hr BID IV 05/02/25 23:00 05/02/25 23:38 200 MLS/HR Laboratory Results Laboratory Tests 05/03/25 08:04 Chemistry Test 05/03/25 08:04 Albumin 2.8 g/dL (3.2-4.8) L Calcium Level 8.0 mg/dL (8.7-10.4) L Magnesium Level 1.8 mg/dL (1.6-2.6) Phosphorus Level 2.2 mg/dL (2.4-5.1) L Total Protein 5.7 g/dL (5.7-8.2) LFT Test 05/03/25 08:04 Alanine Aminotransferase (ALT) < 9 U/L (7-40) Alkaline Phosphatase 47 U/L (46-116) Aspartate Amino Transferase (AST) 10 U/L (13-40) L Total Bilirubin 0.3 mg/dL (0.2-1.0) Urinalysis Test 04/29/25 14:40 Urine Color Yellow (Yellow) Urine Clarity Clear (Clear) Urine pH 7.0 (5.0-9.0) Urine Specific [place] 1.019 (1.001-1.035) Urine Protein Trace (Negative) H Urine Ketones Trace (Negative) Urine Blood Negative /uL (Negative) Urine Nitrite Negative (Negative) Urine Bilirubin Negative (Negative) Urine Urobilinogen Normal mg/dL (Negative) Urine Leukocyte Esterase Trace /uL (Negative) Urine RBC 2 /hpf (0 - 4) Urine Microscopic WBC 5 /HPF (0-5) Urine Squamous Epithelial Cells Few /hpf (<5) Urine Bacteria Few /hpf (None Seen) H Urine Glucose 3+ mg/dL (Normal) H Microbiology Microbiology Date/Time Source Procedure Growth Status 04/21/25 23:52 Blood Blood Culture - Final NO GROWTH AFTER 5 DAYS OF INCUBATION. 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 Juarez on 04/27/2025, biopsy report pending Septic shock secondary to pericolonic abscess Radiology consult for drainage per radiology there is no abscess, but it is a mass, MRI confirms possible pericolonic abscess and possible malignant mass, Cipro Flagyl IV Pericolonic abscess possibly secondary to diverticulitis: Surgical consult by Dr. Juarez appreciated Status post colonoscopy by GI Dr. Zeferino Marti with the following findings: Mass in the proximal descending colon; Trace internal hemorrhoids Chronic microcytic anemia Acute descending colitis Elevated CEA 26 concerning for colonic malignancy Acute complicated diverticulitis Possible history of coronary artery disease Hypertension Diabetes: Insulin sliding scale Hypercholesterolemia Recurrent UTIs Nutrition Clinimix PICC line ordered Post op blood loss anemia expected complication after major surgery: Hemoglobin down from 8.7 to 6.6, transfuse 1 unit of RBC, improved to 9.2 Time spent 67 minutes Advanced care planning time 20 minutes Patient is full code RN Elijah at bedside Son Cholo [phone] and daughter at bedside Awaiting Pathology report Continue NG suction, patient not passing gas yet, Physical therapy ordered Plan discussed with: Patient My Orders Orders - SHEKHAR SRIVASTAVA MD Procedure Category Date Status Time Hydralazine Injection PHA 05/02/25 In Process (Apresoline Inject 11:45 Date of Service: May 03, 2025 Billing Provider: SHEKHAR SRIVASTAVA MD Common Visit Codes: [id number] CARE 30-74 MIN SHEKHAR SRIVASTAVA MD May 03, 2025 09:27
--- NOTE | 2025-05-03 10:13 | DVHPN2 ---
Progress Note Date Seen: May 03, 2025 Has the PT tested + for MRSA If YES, has PT been informed?: No Medical Necessity Reason Pt with a Central, PICC or Fol: No Objective vital signs Vital Sign Date Time Temp Pulse Resp B/P (MAP) Pulse Ox O2 Delivery O2 Flow Rate FiO2 05/03/25 09:00 98.4 136 77 136/77 (96) 100 98.4 05/03/25 07:42 Nasal Cannula* 2 28 Total Intake and Output 05/02/25 05/02/25 05/03/25 15:00 23:00 07:00 Intake Total 500 ml 100 ml 200 ml Output Total 1300 ml 1600 ml Balance 500 ml -1200 ml -1400 ml medications Current Medications Medications Dose Ordered Sig/Gladys Route Start Time Stop Time Status Last Admin Dose Admin Acetaminophen/ Hydrocodone Bitart 1 tab Q4HP PRN PO 04/22/25 01:15 Hold Ondansetron HCl 4 mg Q4HP PRN IV 04/22/25 01:15 05/03/25 04:37 4 MG Enoxaparin Sodium 40 mg DAILY SC 04/22/25 10:00 05/02/25 10:33 40 MG Acetaminophen 650 mg Q6HP PRN PO 04/22/25 01:15 04/26/25 06:34 650 MG Nitroglycerin 0.4 mg Q5MINP PRN SL 04/22/25 01:15 Metronidazole 100 ml @ 100 mls/hr Q8HR IV 04/22/25 08:00 05/03/25 05:35 100 MLS/HR Insulin Glargine 10 units DAILY@1000 SC 04/22/25 10:00 05/02/25 10:46 10 UNITS Amino Acids 0 ml @ 0 mls/hr PER PHARMACY IV 04/22/25 13:30 Amino Acids/ Electrolytes/ Dextrose 1,000 ml @ 41 mls/hr DAILY@2200 IV 04/22/25 22:00 05/02/25 21:53 41 MLS/HR Potassium Chloride/Dextrose/ Sod Cl 1,000 ml @ 120 mls/hr Q8H20M IV 04/27/25 13:45 05/03/25 01:38 120 MLS/HR Ketorolac Tromethamine 15 mg Q6HPRN PRN IV 04/28/25 03:00 05/03/25 02:59 Cancel Acetaminophen 650 mg Q6HP PRN DE 04/28/25 03:45 Morphine Sulfate 4 mg Q4HPRN PRN IV 04/28/25 11:00 05/03/25 04:15 4 MG Sodium Chloride 10 ml QSHIFT@10,22 IV 04/28/25 22:00 05/03/25 04:11 10 ML Diagnostic Test (Pha) 1 strip AC 04/29/25 11:30 Cancel Insulin Human Regular FOLLOW SLIDING SCALE AC SC 04/29/25 11:30 Cancel Dextrose 50 ml UD IV 04/29/25 09:30 Cancel Diagnostic Test (Pha) 1 strip Q6HR 04/29/25 12:00 05/03/25 06:30 1 STRIP Insulin Human Regular FOLLOW SLIDING SCALE Q6HR SC 04/29/25 12:00 05/03/25 07:08 8 UNITS Dextrose 50 ml UD IV 04/29/25 09:30 Pantoprazole Sodium 40 mg DAILY IV 05/02/25 10:00 05/02/25 10:32 40 MG Hydralazine HCl 10 mg Q6HP PRN IV 05/02/25 11:45 05/03/25 01:36 10 MG Ciprofloxacin 200 ml @ 200 mls/hr BID IV 05/02/25 23:00 05/02/25 23:38 200 MLS/HR laboratory and microbiology Laboratory Tests 05/03/25 08:04 Test 05/03/25 08:04 Range/Units Serum Glucose 236 H 74-106 mg/dL Problem List/Assessment/Plan Problem List/Assessment/Plan 04/24/25 stable but slow blood loss continues, radiologist reviewed ct scan and advised against radiological intervention. she needs a colonoscopy to evaluate for possible tumor, I will order an MRI in case 04/26/25 PATIENT WILL NEED LEFT COLECTOMY, WILL TRY TO GIVE GOLYTELY IN ORDER TO AVOID A COLOSTOMY, OPERATION RISKS AND COMPLICATIONS EXPLAINED IN DETAIL 04/28/25 PATIENT IS ALERT, COOPERATIVE AND ASKS APPROPRIATE QUESTIONS ALL OF WHICH WERE ANSWERED TO HER SATISFACTION, I EXPLAINED OPERATIVE FINDINGS AND WILL TELL HER WHEN MICTOSCOPIC DIAGNOSIS IS AVAILABLE FROM THE PATHOLOGIST, ABDOMEN IS SOFT AND NON DISTENDED, APPROPRIATELY TENDER, NEEDS TOP AMBULATE. 04/30/25 no flatus, no bm, abdomen appropriately tender, wound clean and well approximated, needs to ambulate will dc ngt and allow ice chips Plan discussed with: Patient Dietary Evaluation Review Comments: 1. CCHO-60 diet when medically feasible 2. Consider TPN per pharmacy for complete nutrition 3. If GI accessible, and PO not an option, TF Glucerna@55ml/hr providing 79g pro, 1584kcal 1063ml free water Expected Outcomes/Goals: controlled DM, maintain wt COURTNEY BOYD MD May 03, 2025 10:13
--- NOTE | 2025-05-03 11:07 | DVHPN2 ---
Progress Note Date Seen: May 03, 2025 Resident Creating Document: KALYN NARAYAN RESIDENT Has the PT tested + for MRSA If YES, has PT been informed?: No Medical Necessity Reason Pt with a Central, PICC or Fol: No Subjective Review of Systems Patient is a 59-year-old female with past medical history of hypertension, anemia, PUD/GERD, CKD, type 2 diabetes insulin dependent, diabetic neuropathy, dyslipidemia, possible CAD who initially came to the ER with moderate intermittent left flank pain. CT abdomen pelvis showed circumferential wall thickening of a segment of distal descending colon with pericolonic stranding. Thick walled outpouching or collection to the left of the descending colon measuring up to 5.2 cm, reflecting pericolonic abscess associated with the acute diverticulitis or colitis. A mass is also a consideration though less likely. Abdominopelvic MRI subsequently showed irregular moderate to marked wall thickening involving a loop of descending colon with marked adjacent inflammatory stranding and has been. Findings appearing most consistent with marked colitis with focal outpouching likely due to contain perforation and possible phlegmon. Surgery was subsequently consulted and patient underwent ex lap with left hemicolectomy and colocolostomy. Patient is also s/p incomplete colonoscopy which showed circumferential irregular masslike structure area close to the splenic flexure and proximal descending colon about 55-60 cm of the anal verge with moderate inflammatory changes in suspicion for possible contained perforation. Colonoscope was not advanced beyond this area. Today patient is seen and examined at bedside Continues to note nausea Has not been able to pass gas or bowel movement NG tube output 100 mL light green to clear Minimal serosanguineous output in the [place] drain Objective vital signs Vital Sign Date Time Temp Pulse Resp B/P (MAP) Pulse Ox O2 Delivery O2 Flow Rate FiO2 05/03/25 09:42 114 18 136/77 05/03/25 09:00 98.4 100 98.4 05/03/25 07:42 Nasal Cannula* 2 28 Total Intake and Output 05/02/25 05/02/25 05/03/25 15:00 23:00 07:00 Intake Total 500 ml 100 ml 200 ml Output Total 1300 ml 1600 ml Balance 500 ml -1200 ml -1400 ml medications Current Medications Medications Dose Ordered Sig/Gladys Route Start Time Stop Time Status Last Admin Dose Admin Acetaminophen/ Hydrocodone Bitart 1 tab Q4HP PRN PO 04/22/25 01:15 Hold Ondansetron HCl 4 mg Q4HP PRN IV 04/22/25 01:15 05/03/25 09:43 4 MG Enoxaparin Sodium 40 mg DAILY SC 04/22/25 10:00 05/03/25 09:40 40 MG Acetaminophen 650 mg Q6HP PRN PO 04/22/25 01:15 04/26/25 06:34 650 MG Nitroglycerin 0.4 mg Q5MINP PRN SL 04/22/25 01:15 Metronidazole 100 ml @ 100 mls/hr Q8HR IV 04/22/25 08:00 05/03/25 05:35 100 MLS/HR Insulin Glargine 10 units DAILY@1000 SC 04/22/25 10:00 05/03/25 09:50 10 UNITS Amino Acids 0 ml @ 0 mls/hr PER PHARMACY IV 04/22/25 13:30 Amino Acids/ Electrolytes/ Dextrose 1,000 ml @ 41 mls/hr DAILY@2200 IV 04/22/25 22:00 05/02/25 21:53 41 MLS/HR Potassium Chloride/Dextrose/ Sod Cl 1,000 ml @ 120 mls/hr Q8H20M IV 04/27/25 13:45 05/03/25 01:38 120 MLS/HR Ketorolac Tromethamine 15 mg Q6HPRN PRN IV 04/28/25 03:00 05/03/25 02:59 Cancel Acetaminophen 650 mg Q6HP PRN CO 04/28/25 03:45 Morphine Sulfate 4 mg Q4HPRN PRN IV 04/28/25 11:00 05/03/25 09:42 4 MG Sodium Chloride 10 ml QSHIFT@10,22 IV 04/28/25 22:00 05/03/25 09:42 10 ML Diagnostic Test (Pha) 1 strip AC 04/29/25 11:30 Cancel Insulin Human Regular FOLLOW SLIDING SCALE AC SC 04/29/25 11:30 Cancel Dextrose 50 ml UD IV 04/29/25 09:30 Cancel Diagnostic Test (Pha) 1 strip Q6HR 04/29/25 12:00 05/03/25 06:30 1 STRIP Insulin Human Regular FOLLOW SLIDING SCALE Q6HR SC 04/29/25 12:00 05/03/25 07:08 8 UNITS Dextrose 50 ml UD IV 04/29/25 09:30 Pantoprazole Sodium 40 mg DAILY IV 05/02/25 10:00 05/03/25 09:40 40 MG Hydralazine HCl 10 mg Q6HP PRN IV 05/02/25 11:45 05/03/25 01:36 10 MG Ciprofloxacin 200 ml @ 200 mls/hr BID IV 05/02/25 23:00 05/03/25 09:39 200 MLS/HR Examination General Appearance: Cooperative. Well developed. Well nourished. NAD Head Exam: Normal inspection Neck Exam: Normal inspection. Non-tender. Normal alignment Pulmonary/Respiratory: Chest non-tender. Clear bilateral breath sounds, no crackles, no wheezing. Cardiovascular/Chest: Regular rate and rhythm. No murmurs. No JVD. Peripheral Pulses: 2+ Pedal (R). 2+ Pedal (L) Abdominal Exam: Distended, tender in LLQ and left flank, mild guarding, no rebound tenderness, bowel sounds present but hypoactive. Neuro/Mental Status: A&O x4. Coherent. Thoughts/Psych: Normal thought pattern. Appropriate mood and affect. Good judgement and insight Skin Exam: Normal inspection. Normal color. Warm. Dry laboratory and microbiology Laboratory Tests 05/03/25 08:04 Test 05/03/25 08:04 Range/Units Serum Glucose 236 H 74-106 mg/dL Microbiology Date/Time Source Procedure Growth Status 04/21/25 23:52 Blood Blood Culture - Final NO GROWTH AFTER 5 DAYS OF INCUBATION. Complete Labs and/or images reviewed: Labs reviewed by me, Image(s) reviewed by me Problem List/Assessment/Plan Problem List/Assessment/Plan Colonic mass, suspected malignancy? S/p ex lap with left hemicolectomy Elevated CEA Acute complicated diverticulitis Pericolonic abscess due to above Sepsis due to above Chronic microcytic anemia Plan: Continue ciprofloxacin, metronidazole Discontinued NG tube On Clinimix IV Protonix 40 mg daily Up to chair, progressing with PT Awaiting final pathology results Thank you so much for the opportunity to consult on your patient. GI team will follow the patient. In case of any questions or concerns please feel free to reach out. Plan discussed with Dr. Marti Plan discussed with: Patient, Other (RN) Dietary Evaluation Review Comments: 1. CCHO-60 diet when medically feasible 2. Consider TPN per pharmacy for complete nutrition 3. If GI accessible, and PO not an option, TF Glucerna@55ml/hr providing 79g pro, 1584kcal 1063ml free water Expected Outcomes/Goals: controlled DM, maintain wt CC Plasma Assessment Blood Product Administration S: [id number] KALYN NARAYAN RESIDENT May 03, 2025 11:07
[2025-05-03] MEDS: SODIUM PHOSPHATES 20 MEQ in SODIUM CHL 0.9% 100 ML IV ONE (12:50)
[2025-05-03] MEDS: POTASSIUM PHOSPHATE 22 MEQ in SODIUM CHL 0.9% 100 ML IV ONE (12:51)
[2025-05-04] VITALS (8 sets, daily range): BP systolic 126–171; BP diastolic 65–87; PULSE 79–130; RESP 18–20; TEMP 97.9–98.6; O2SAT 95–100
--- NOTE | 2025-05-04 08:02 | DVHPN2 ---
Progress Note Date Seen: May 04, 2025 Has the PT tested + for MRSA If YES, has PT been informed?: No Medical Necessity Reason Pt with a Central, PICC or Fol: No Objective vital signs Vital Sign Date Time Temp Pulse Resp B/P (MAP) Pulse Ox O2 Delivery O2 Flow Rate FiO2 05/04/25 05:00 98.0 124 20 143/65 (91) 96 98.0 05/03/25 20:00 Nasal Cannula* 2 28 Total Intake and Output 05/03/25 05/03/25 05/04/25 15:00 23:00 07:00 Intake Total 200 ml 200 ml 200 ml Output Total 700 ml 1100 ml Balance 200 ml -500 ml -900 ml medications Current Medications Medications Dose Ordered Sig/Gladys Route Start Time Stop Time Status Last Admin Dose Admin Acetaminophen/ Hydrocodone Bitart 1 tab Q4HP PRN PO 04/22/25 01:15 Hold Ondansetron HCl 4 mg Q4HP PRN IV 04/22/25 01:15 05/03/25 14:12 4 MG Acetaminophen 650 mg Q6HP PRN PO 04/22/25 01:15 04/26/25 06:34 650 MG Nitroglycerin 0.4 mg Q5MINP PRN SL 04/22/25 01:15 Metronidazole 100 ml @ 100 mls/hr Q8HR IV 04/22/25 08:00 05/04/25 06:11 100 MLS/HR Insulin Glargine 10 units DAILY@1000 SC 04/22/25 10:00 05/03/25 09:50 10 UNITS Amino Acids 0 ml @ 0 mls/hr PER PHARMACY IV 04/22/25 13:30 Amino Acids/ Electrolytes/ Dextrose 1,000 ml @ 41 mls/hr DAILY@2200 IV 04/22/25 22:00 05/03/25 22:21 41 MLS/HR Potassium Chloride/Dextrose/ Sod Cl 1,000 ml @ 120 mls/hr Q8H20M IV 04/27/25 13:45 05/04/25 04:04 120 MLS/HR Ketorolac Tromethamine 15 mg Q6HPRN PRN IV 04/28/25 03:00 05/03/25 02:59 Cancel Acetaminophen 650 mg Q6HP PRN LA 04/28/25 03:45 Morphine Sulfate 4 mg Q4HPRN PRN IV 04/28/25 11:00 05/04/25 04:03 4 MG Sodium Chloride 10 ml QSHIFT@10,22 IV 04/28/25 22:00 05/03/25 09:42 10 ML Diagnostic Test (Pha) 1 strip AC 04/29/25 11:30 Cancel Insulin Human Regular FOLLOW SLIDING SCALE AC SC 04/29/25 11:30 Cancel Dextrose 50 ml UD IV 04/29/25 09:30 Cancel Diagnostic Test (Pha) 1 strip Q6HR 04/29/25 12:00 05/04/25 06:00 1 STRIP Insulin Human Regular FOLLOW SLIDING SCALE Q6HR SC 04/29/25 12:00 05/04/25 06:00 12 UNITS Dextrose 50 ml UD IV 04/29/25 09:30 Pantoprazole Sodium 40 mg DAILY IV 05/02/25 10:00 05/03/25 09:40 40 MG Hydralazine HCl 10 mg Q6HP PRN IV 05/02/25 11:45 05/04/25 01:46 10 MG Ciprofloxacin 200 ml @ 200 mls/hr BID IV 05/02/25 23:00 05/04/25 00:01 200 MLS/HR laboratory and microbiology Laboratory Tests 05/03/25 08:04 Test 05/03/25 08:04 Range/Units Serum Glucose 236 H 74-106 mg/dL Problem List/Assessment/Plan Problem List/Assessment/Plan 04/24/25 stable but slow blood loss continues, radiologist reviewed ct scan and advised against radiological intervention. she needs a colonoscopy to evaluate for possible tumor, I will order an MRI in case 04/26/25 PATIENT WILL NEED LEFT COLECTOMY, WILL TRY TO GIVE GOLYTELY IN ORDER TO AVOID A COLOSTOMY, OPERATION RISKS AND COMPLICATIONS EXPLAINED IN DETAIL 04/28/25 PATIENT IS ALERT, COOPERATIVE AND ASKS APPROPRIATE QUESTIONS ALL OF WHICH WERE ANSWERED TO HER SATISFACTION, I EXPLAINED OPERATIVE FINDINGS AND WILL TELL HER WHEN MICTOSCOPIC DIAGNOSIS IS AVAILABLE FROM THE PATHOLOGIST, ABDOMEN IS SOFT AND NON DISTENDED, APPROPRIATELY TENDER, NEEDS TOP AMBULATE. 04/30/25 no flatus, no bm, abdomen appropriately tender, wound clean and well approximated, needs to ambulate will dc ngt and allow ice chips 05/01/25 passed flatus, no bm, wound ok, drainage serous, vital signs stable, abdomen appropriately tender, will allow po clear liquids, must ambulate every 4 hours!! Plan discussed with: Patient Dietary Evaluation Review Comments: 1. CCHO-60 diet when medically feasible 2. Consider TPN per pharmacy for complete nutrition 3. If GI accessible, and PO not an option, TF Glucerna@55ml/hr providing 79g pro, 1584kcal 1063ml free water Expected Outcomes/Goals: controlled DM, maintain wt COURTNEY BOYD MD May 04, 2025 08:02
--- NOTE | 2025-05-04 08:31 | DVHPN2 ---
Reviewed: Care Plan, H&P, Labs, Medications, Previous Orders, Radiology Changes from previous H/P or p: No Changes Eyes: No Pain, No Vision change, No Conjunctivae inflammation, No Eyelid inflammation, No Other, No Redness ENT: No Ear pain, No Ear discharge, No Nose pain, No Nose discharge, No Nose congestion, No Mouth pain, No Mouth swelling, No Throat pain, No Throat swelling, No Other Cardiovascular: No Chest Pain, No Palpitations, No Orthopnea, No Paroxysmal Noc. Dyspnea, No Edema, No Lt Headedness, No Other Respiratory: No Cough, No Dry, No Shortness of breath, No SOB with excertion, No Wheezing, No Hemoptysis, No Pleuritic Pain, No Sputum, No Other Gastrointestinal: Nausea, Vomiting, Abdominal Pain; No Diarrhea; Constipation; No Melena, No Hematochezia, No Other Genitourinary: No Dysuria, No Frequency, No Incontinence, No Hematuria, No Retention, No Other Musculoskeletal: No other, No neck pain, No shoulder pain, No arm pain, No back pain, No hand pain, No leg pain, No foot pain Skin: No Rash, No Lesions, No Jaundice, No Bruising, No Other Objective Vitals Vital Signs Date Time Temp Pulse Resp B/P (MAP) Pulse Ox O2 Delivery O2 Flow Rate FiO2 05/04/25 05:00 98.0 124 20 143/65 (91) 96 98.0 05/03/25 20:00 Nasal Cannula* 2 28 Intake/Output Intake and Output 05/04/25 07:00 Intake Total 600 ml Output Total 1800 ml Balance -1200 ml Intake Oral 0 ml IV Total 600 ml Output Urine Total 1800 ml Medications Current Medications Medications Dose Ordered Sig/Gladys Route Start Time Stop Time Status Last Admin Dose Admin Ondansetron HCl 4 mg Q4HP PRN IV 04/22/25 01:15 05/03/25 14:12 4 MG Acetaminophen 650 mg Q6HP PRN PO 04/22/25 01:15 04/26/25 06:34 650 MG Nitroglycerin 0.4 mg Q5MINP PRN SL 04/22/25 01:15 Insulin Glargine 10 units DAILY@1000 SC 04/22/25 10:00 05/03/25 09:50 10 UNITS Amino Acids 0 ml @ 0 mls/hr PER PHARMACY IV 04/22/25 13:30 Amino Acids/ Electrolytes/ Dextrose 1,000 ml @ 41 mls/hr DAILY@2200 IV 04/22/25 22:00 05/03/25 22:21 41 MLS/HR Potassium Chloride/Dextrose/ Sod Cl 1,000 ml @ 120 mls/hr Q8H20M IV 04/27/25 13:45 05/04/25 04:04 120 MLS/HR Ketorolac Tromethamine 15 mg Q6HPRN PRN IV 04/28/25 03:00 05/03/25 02:59 Cancel Acetaminophen 650 mg Q6HP PRN [place] 04/28/25 03:45 Sodium Chloride 10 ml QSHIFT@10,22 IV 04/28/25 22:00 05/03/25 09:42 10 ML Diagnostic Test (Pha) 1 strip AC 04/29/25 11:30 Cancel Insulin Human Regular FOLLOW SLIDING SCALE AC SC 04/29/25 11:30 Cancel Dextrose 50 ml UD IV 04/29/25 09:30 Cancel Diagnostic Test (Pha) 1 strip Q6HR 04/29/25 12:00 05/04/25 06:00 1 STRIP Insulin Human Regular FOLLOW SLIDING SCALE Q6HR SC 04/29/25 12:00 05/04/25 06:00 12 UNITS Dextrose 50 ml UD IV 04/29/25 09:30 Pantoprazole Sodium 40 mg DAILY IV 05/02/25 10:00 05/03/25 09:40 40 MG Hydralazine HCl 10 mg Q6HP PRN IV 05/02/25 11:45 05/04/25 01:46 10 MG Ciprofloxacin 200 ml @ 200 mls/hr BID IV 05/02/25 23:00 05/04/25 00:01 200 MLS/HR Ketorolac Tromethamine 15 mg Q6HPRN PRN IV 05/04/25 08:15 05/09/25 08:14 Laboratory Results Laboratory Tests 05/03/25 08:04 Urinalysis Test 04/29/25 14:40 Urine Color Yellow (Yellow) Urine Clarity Clear (Clear) Urine pH 7.0 (5.0-9.0) Urine Specific [place] 1.019 (1.001-1.035) Urine Protein Trace (Negative) H Urine Ketones Trace (Negative) Urine Blood Negative /uL (Negative) Urine Nitrite Negative (Negative) Urine Bilirubin Negative (Negative) Urine Urobilinogen Normal mg/dL (Negative) Urine Leukocyte Esterase Trace /uL (Negative) Urine RBC 2 /hpf (0 - 4) Urine Microscopic WBC 5 /HPF (0-5) Urine Squamous Epithelial Cells Few /hpf (<5) Urine Bacteria Few /hpf (None Seen) H Urine Glucose 3+ mg/dL (Normal) H Microbiology Microbiology Date/Time Source Procedure Growth Status 04/21/25 23:52 Blood Blood Culture - Final NO GROWTH AFTER 5 DAYS OF INCUBATION. 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 Woods on 04/27/2025, biopsy report pending Septic shock secondary to pericolonic abscess Radiology consult for drainage per radiology there is no abscess, but it is a mass, MRI confirms possible pericolonic abscess and possible malignant mass, Cipro Flagyl IV Pericolonic abscess possibly secondary to diverticulitis: Surgical consult by Dr. Woods appreciated Status post colonoscopy by GI Dr. Zeferino Marti with the following findings: Mass in the proximal descending colon; Trace internal hemorrhoids Chronic microcytic anemia Acute descending colitis Elevated CEA 26 concerning for colonic malignancy Acute complicated diverticulitis Possible history of coronary artery disease Hypertension Diabetes: Insulin sliding scale Hypercholesterolemia Recurrent UTIs Nutrition Clinimix PICC line ordered Post op blood loss anemia expected complication after major surgery: Hemoglobin down from 8.7 to 6.6, transfuse 1 unit of RBC, improved to 9.2 Time spent 67 minutes Advanced care planning time 20 minutes Patient is full code RN Elijah at bedside Son Cholo [phone] and daughter at bedside Awaiting Pathology report Patient passing flatus but no bowel movement clear liquids per Dr Woods Plan discussed with: Patient Date of Service: May 04, 2025 Billing Provider: SHEKHAR SRIVASTAVA MD Common Visit Codes: [id number] INP/OBS CARE(HIGH) SHEKHAR SRIVASTAVA MD May 04, 2025 08:31
--- NOTE | 2025-05-04 11:18 | DVHPN2 ---
Progress Note Date Seen: May 04, 2025 Resident Creating Document: KALYN NARAYAN RESIDENT Has the PT tested + for MRSA If YES, has PT been informed?: No Medical Necessity Reason Pt with a Central, PICC or Fol: No Subjective Review of Systems Patient is a 59-year-old female with past medical history of hypertension, anemia, PUD/GERD, CKD, type 2 diabetes insulin dependent, diabetic neuropathy, dyslipidemia, possible CAD who initially came to the ER with moderate intermittent left flank pain. CT abdomen pelvis showed circumferential wall thickening of a segment of distal descending colon with pericolonic stranding. Thick walled outpouching or collection to the left of the descending colon measuring up to 5.2 cm, reflecting pericolonic abscess associated with the acute diverticulitis or colitis. A mass is also a consideration though less likely. Abdominopelvic MRI subsequently showed irregular moderate to marked wall thickening involving a loop of descending colon with marked adjacent inflammatory stranding and has been. Findings appearing most consistent with marked colitis with focal outpouching likely due to contain perforation and possible phlegmon. Surgery was subsequently consulted and patient underwent ex lap with left hemicolectomy and colocolostomy. Patient is also s/p incomplete colonoscopy which showed circumferential irregular masslike structure area close to the splenic flexure and proximal descending colon about 55-60 cm of the anal verge with moderate inflammatory changes in suspicion for possible contained perforation. Colonoscope was not advanced beyond this area. Today patient is seen and examined at bedside Continues to note nausea Has not been able to pass gas or bowel movement Normal serosanguineous drainage noted in the LINWOOD drain Encouraged ambulation q.4 hours Objective vital signs Vital Sign Date Time Temp Pulse Resp B/P (MAP) Pulse Ox O2 Delivery O2 Flow Rate FiO2 05/04/25 05:00 98.0 124 20 143/65 (91) 96 98.0 05/03/25 20:00 Nasal Cannula* 2 28 Total Intake and Output 05/03/25 05/03/25 05/04/25 15:00 23:00 07:00 Intake Total 200 ml 200 ml 200 ml Output Total 700 ml 1100 ml Balance 200 ml -500 ml -900 ml medications Current Medications Medications Dose Ordered Sig/Gladys Route Start Time Stop Time Status Last Admin Dose Admin Ondansetron HCl 4 mg Q4HP PRN IV 04/22/25 01:15 05/03/25 14:12 4 MG Acetaminophen 650 mg Q6HP PRN PO 04/22/25 01:15 04/26/25 06:34 650 MG Nitroglycerin 0.4 mg Q5MINP PRN SL 04/22/25 01:15 Insulin Glargine 10 units DAILY@1000 SC 04/22/25 10:00 05/04/25 10:38 10 UNITS Amino Acids 0 ml @ 0 mls/hr PER PHARMACY IV 04/22/25 13:30 Amino Acids/ Electrolytes/ Dextrose 1,000 ml @ 41 mls/hr DAILY@2200 IV 04/22/25 22:00 05/03/25 22:21 41 MLS/HR Potassium Chloride/Dextrose/ Sod Cl 1,000 ml @ 120 mls/hr Q8H20M IV 04/27/25 13:45 05/04/25 04:04 120 MLS/HR Ketorolac Tromethamine 15 mg Q6HPRN PRN IV 04/28/25 03:00 05/03/25 02:59 Cancel Acetaminophen 650 mg Q6HP PRN [place] 04/28/25 03:45 Sodium Chloride 10 ml QSHIFT@10,22 IV 04/28/25 22:00 05/04/25 10:00 10 ML Diagnostic Test (Pha) 1 strip AC 04/29/25 11:30 Cancel Insulin Human Regular FOLLOW SLIDING SCALE AC SC 04/29/25 11:30 Cancel Dextrose 50 ml UD IV 04/29/25 09:30 Cancel Diagnostic Test (Pha) 1 strip Q6HR 04/29/25 12:00 05/04/25 06:00 1 STRIP Insulin Human Regular FOLLOW SLIDING SCALE Q6HR SC 04/29/25 12:00 05/04/25 06:00 12 UNITS Dextrose 50 ml UD IV 04/29/25 09:30 Pantoprazole Sodium 40 mg DAILY IV 05/02/25 10:00 05/04/25 10:36 40 MG Hydralazine HCl 10 mg Q6HP PRN IV 05/02/25 11:45 05/04/25 01:46 10 MG Ciprofloxacin 200 ml @ 200 mls/hr BID IV 05/02/25 23:00 05/04/25 10:36 200 MLS/HR Ketorolac Tromethamine 15 mg Q6HPRN PRN IV 05/04/25 08:15 9/3/25 08:14 Examination General Appearance: Cooperative. Well developed. Well nourished. NAD Head Exam: Normal inspection Neck Exam: Normal inspection. Non-tender. Normal alignment Pulmonary/Respiratory: Chest non-tender. Clear bilateral breath sounds, no crackles, no wheezing. Cardiovascular/Chest: Regular rate and rhythm. No murmurs. No JVD. Peripheral Pulses: 2+ Pedal (R). 2+ Pedal (L) Abdominal Exam: Distended, tender in LLQ and left flank, mild guarding, no rebound tenderness, bowel sounds present but hypoactive. Neuro/Mental Status: A&O x4. Coherent. Thoughts/Psych: Normal thought pattern. Appropriate mood and affect. Good judgement and insight Skin Exam: Normal inspection. Normal color. Warm. Dry laboratory and microbiology Laboratory Tests 05/03/25 08:04 Test 05/03/25 08:04 Range/Units Serum Glucose 236 H 74-106 mg/dL Microbiology Date/Time Source Procedure Growth Status 04/21/25 23:52 Blood Blood Culture - Final NO GROWTH AFTER 5 DAYS OF INCUBATION. Complete Labs and/or images reviewed: Labs reviewed by me, Image(s) reviewed by me Problem List/Assessment/Plan Problem List/Assessment/Plan Colonic mass, suspected malignancy? S/p ex lap with left hemicolectomy Elevated CEA Acute complicated diverticulitis Pericolonic abscess due to above Sepsis due to above Chronic microcytic anemia Plan: Continue ciprofloxacin, metronidazole Discontinued NG tube Tolerating clear liquid diet IV Protonix 40 mg daily Up to chair, progressing with PT Awaiting final pathology results Thank you so much for the opportunity to consult on your patient. GI team will follow the patient. In case of any questions or concerns please feel free to reach out. Plan discussed with Dr. Marti Plan discussed with: Patient, Other (RN) Dietary Evaluation Review Comments: 1. CCHO-60 diet when medically feasible 2. Consider TPN per pharmacy for complete nutrition 3. If GI accessible, and PO not an option, TF Glucerna@55ml/hr providing 79g pro, 1584kcal 1063ml free water Expected Outcomes/Goals: controlled DM, maintain wt CC Plasma Assessment Blood Product Administration S: [id number] KALYN NARAYAN RESIDENT May 04, 2025 11:18
[2025-05-04 11:50] LABS: Hemoglobin 8.4 g/dL (12.2-16.2)
[2025-05-04 11:52] LABS: Hematocrit 26.0 % (36.0-46.0); Mean Corpuscular Hemoglobin 20.7 pg (28.0-32.0); Mean Corpuscular Volume 64.3 fL (80.0-100.0); Nucleated Red Blood Cells % 0.1 %
[2025-05-04 12:05] LABS: Alkaline Phosphatase 57 U/L (46-116); Anion Gap 6 (5-15); BUN/Creatinine Ratio 8.3 (10.0-20.0); Carbon Dioxide 25 mmol/L (20-31); Chloride 101 mmol/L (98-107); Magnesium 1.7 mg/dL (1.6-2.6); Potassium 3.8 mmol/L (3.5-5.1); Total Protein 6.2 g/dL (5.7-8.2)
[2025-05-04 12:06] LABS: Bilirubin, Total 0.4 mg/dL (0.2-1.0)
[2025-05-04 12:08] LABS: Alanine Aminotransferase < 9 U/L (7-40); Albumin 3.0 g/dL (3.2-4.8); Blood Urea Nitrogen 6 mg/dL (9-23); Calcium 7.9 mg/dL (8.7-10.4); Glucose 270 mg/dL (74-106); Sodium 132 mmol/L (136-145)
[2025-05-04] MEDS: SODIUM PHOSPHATES 40 MEQ in D5W 5% 250 ML IV ONE (17:30)
[2025-05-04] MEDS: KETOROLAC TROMETH 30 MG/ML 1ML VIAL IV PRN (18:42)
[2025-05-05] VITALS (10 sets, daily range): BP systolic 145–173; BP diastolic 73–97; PULSE 116–133; RESP 16–18; TEMP 97.6–98.3; O2SAT 96–99
[2025-05-05 07:07] LABS: Hematocrit 24.3 % (36.0-46.0); Hemoglobin 7.9 g/dL (12.2-16.2); Mean Corpuscular Hemoglobin 20.7 pg (28.0-32.0); Mean Corpuscular Volume 63.9 fL (80.0-100.0); Nucleated Red Blood Cells % 0.1 %
[2025-05-05 07:12] LABS: Alanine Aminotransferase 14 U/L (7-40); Alkaline Phosphatase 62 U/L (46-116); Anion Gap 10 (5-15); BUN/Creatinine Ratio 10.5 (10.0-20.0); Carbon Dioxide 25 mmol/L (20-31); Chloride 104 mmol/L (98-107); Magnesium 1.8 mg/dL (1.6-2.6); Sodium 139 mmol/L (136-145); Total Protein 6.0 g/dL (5.7-8.2)
[2025-05-05 07:13] LABS: Bilirubin, Total 0.3 mg/dL (0.2-1.0)
[2025-05-05 07:15] LABS: Blood Urea Nitrogen 8 mg/dL (9-23); Calcium 8.2 mg/dL (8.7-10.4); Glucose 147 mg/dL (74-106); Potassium 3.5 mmol/L (3.5-5.1)
[2025-05-05 07:19] LABS: Albumin 2.8 g/dL (3.2-4.8)
--- NOTE | 2025-05-05 07:54 | DVHPN2 ---
Reviewed: Care Plan, H&P, Labs, Medications, Previous Orders, Radiology Changes from previous H/P or p: No Changes Eyes: No Pain, No Vision change, No Conjunctivae inflammation, No Eyelid inflammation, No Other, No Redness ENT: No Ear pain, No Ear discharge, No Nose pain, No Nose discharge, No Nose congestion, No Mouth pain, No Mouth swelling, No Throat pain, No Throat swelling, No Other Cardiovascular: No Chest Pain, No Palpitations, No Orthopnea, No Paroxysmal Noc. Dyspnea, No Edema, No Lt Headedness, No Other Respiratory: No Cough, No Dry, No Shortness of breath, No SOB with excertion, No Wheezing, No Hemoptysis, No Pleuritic Pain, No Sputum, No Other Gastrointestinal: Nausea, Vomiting, Abdominal Pain; No Diarrhea; Constipation; No Melena, No Hematochezia, No Other Genitourinary: No Dysuria, No Frequency, No Incontinence, No Hematuria, No Retention, No Other Musculoskeletal: No other, No neck pain, No shoulder pain, No arm pain, No back pain, No hand pain, No leg pain, No foot pain Skin: No Rash, No Lesions, No Jaundice, No Bruising, No Other Objective Vitals Vital Signs Date Time Temp Pulse Resp B/P (MAP) Pulse Ox O2 Delivery O2 Flow Rate FiO2 05/05/25 05:45 162/80 05/05/25 05:15 128 05/05/25 05:00 97.6 18 98 97.6 05/04/25 20:00 Nasal Cannula* 2 28 Intake/Output Intake and Output 05/05/25 07:00 Intake Total 2411 ml Output Total 2225 ml Balance 186 ml Intake Oral 1011 ml IV Total 1400 ml Output Urine Total 2225 ml Medications Current Medications Medications Dose Ordered Sig/Gladys Route Start Time Stop Time Status Last Admin Dose Admin Ondansetron HCl 4 mg Q4HP PRN IV 04/22/25 01:15 05/04/25 19:38 4 MG Acetaminophen 650 mg Q6HP PRN PO 04/22/25 01:15 04/26/25 06:34 650 MG Nitroglycerin 0.4 mg Q5MINP PRN SL 04/22/25 01:15 Insulin Glargine 10 units DAILY@1000 SC 04/22/25 10:00 05/04/25 10:38 10 UNITS Amino Acids 0 ml @ 0 mls/hr PER PHARMACY IV 04/22/25 13:30 Amino Acids/ Electrolytes/ Dextrose 1,000 ml @ 41 mls/hr DAILY@2200 IV 04/22/25 22:00 05/04/25 21:49 41 MLS/HR Potassium Chloride/Dextrose/ Sod Cl 1,000 ml @ 120 mls/hr Q8H20M IV 04/27/25 13:45 05/04/25 04:04 120 MLS/HR Ketorolac Tromethamine 15 mg Q6HPRN PRN IV 04/28/25 03:00 05/03/25 02:59 Cancel Acetaminophen 650 mg Q6HP PRN [place] 04/28/25 03:45 Sodium Chloride 10 ml QSHIFT@10,22 IV 04/28/25 22:00 05/04/25 21:48 10 ML Diagnostic Test (Pha) 1 strip AC 04/29/25 11:30 Cancel Insulin Human Regular FOLLOW SLIDING SCALE AC SC 04/29/25 11:30 Cancel Dextrose 50 ml UD IV 04/29/25 09:30 Cancel Diagnostic Test (Pha) 1 strip Q6HR 04/29/25 12:00 05/05/25 05:17 1 STRIP Insulin Human Regular FOLLOW SLIDING SCALE Q6HR SC 04/29/25 12:00 05/05/25 05:20 2 UNITS Dextrose 50 ml UD IV 04/29/25 09:30 Pantoprazole Sodium 40 mg DAILY IV 05/02/25 10:00 05/04/25 10:36 40 MG Hydralazine HCl 10 mg Q6HP PRN IV 05/02/25 11:45 05/05/25 05:45 10 MG Ciprofloxacin 200 ml @ 200 mls/hr BID IV 05/02/25 23:00 05/04/25 21:48 200 MLS/HR Ketorolac Tromethamine 15 mg Q6HPRN PRN IV 05/04/25 08:15 05/09/25 08:14 05/05/25 01:28 15 MG Laboratory Results Laboratory Tests 05/05/25 05:17 Chemistry Test 05/04/25 11:20 05/05/25 05:17 Albumin 3.0 g/dL (3.2-4.8) L 2.8 g/dL (3.2-4.8) L Calcium Level 7.9 mg/dL (8.7-10.4) L 8.2 mg/dL (8.7-10.4) L Magnesium Level 1.7 mg/dL (1.6-2.6) 1.8 mg/dL (1.6-2.6) Phosphorus Level 2.0 mg/dL (2.4-5.1) L 3.2 mg/dL (2.4-5.1) Total Protein 6.2 g/dL (5.7-8.2) 6.0 g/dL (5.7-8.2) LFT Test 05/04/25 11:20 05/05/25 05:17 Alanine Aminotransferase (ALT) < 9 U/L (7-40) 14 U/L (7-40) Alkaline Phosphatase 57 U/L (46-116) 62 U/L (46-116) Aspartate Amino Transferase (AST) 16 U/L (13-40) 29 U/L (13-40) Total Bilirubin 0.4 mg/dL (0.2-1.0) 0.3 mg/dL (0.2-1.0) Urinalysis Test 04/29/25 14:40 Urine Color Yellow (Yellow) Urine Clarity Clear (Clear) Urine pH 7.0 (5.0-9.0) Urine Specific [place] 1.019 (1.001-1.035) Urine Protein Trace (Negative) H Urine Ketones Trace (Negative) Urine Blood Negative /uL (Negative) Urine Nitrite Negative (Negative) Urine Bilirubin Negative (Negative) Urine Urobilinogen Normal mg/dL (Negative) Urine Leukocyte Esterase Trace /uL (Negative) Urine RBC 2 /hpf (0 - 4) Urine Microscopic WBC 5 /HPF (0-5) Urine Squamous Epithelial Cells Few /hpf (<5) Urine Bacteria Few /hpf (None Seen) H Urine Glucose 3+ mg/dL (Normal) H Microbiology Microbiology Date/Time Source Procedure Growth Status 04/21/25 23:52 Blood Blood Culture - Final NO GROWTH AFTER 5 DAYS OF INCUBATION. Complete Assessment/Plan Assessment/Plan Large Mass most likely malignancy mid descending colon status post Exploratory laparotomy, left hemicolectomy, colocolostomy by Dr. Woods on 04/27/2025, biopsy report pending Septic shock secondary to pericolonic abscess Radiology consult for drainage per radiology there is no abscess, but it is a mass, MRI confirms possible pericolonic abscess and possible malignant mass, Cipro Flagyl IV Pericolonic abscess possibly secondary to diverticulitis: Surgical consult by Dr. Woods appreciated Status post colonoscopy by GI Dr. Zeferino Marti with the following findings: Mass in the proximal descending colon; Trace internal hemorrhoids Chronic microcytic anemia Acute descending colitis Elevated CEA 26 concerning for colonic malignancy Acute complicated diverticulitis Possible history of coronary artery disease Hypertension Diabetes: Insulin sliding scale Hypercholesterolemia Recurrent UTIs Nutrition Clinimix PICC line ordered Post op blood loss anemia expected complication after major surgery: Hemoglobin down from 8.7 to 6.6, transfuse 1 unit of RBC, improved to 7.9 Time spent 67 minutes Advanced care planning time 20 minutes Patient is full code RN Elijah at bedside Son Cholo [phone] and daughter at bedside Awaiting Pathology report Patient passing flatus but no bowel movement clear liquids per Dr Woods Plan discussed with: Patient, Son My Orders Orders - SHEKHAR SRIVASTAVA MD Procedure Category Date Status Time Complete Blood Count LAB 05/06/25 Verified 05:00 Complete Blood Count LAB 05/07/25 Verified 05:00 Complete Blood Count LAB 05/08/25 Verified 05:00 Complete Blood Count LAB 05/09/25 Verified 05:00 Comprehensive LAB 05/06/25 Verified Metabolic Panel 05:00 Comprehensive LAB 05/07/25 Verified Metabolic Panel 05:00 Comprehensive LAB 05/08/25 Verified Metabolic Panel 05:00 Comprehensive LAB 05/09/25 Verified Metabolic Panel 05:00 Date of Service: May 05, 2025 Billing Provider: SHEKHAR SRIVASTAVA MD Common Visit Codes: [id number] INP/OBS CARE(HIGH) SHEKHAR SRIVASTAVA MD May 05, 2025 07:54
--- NOTE | 2025-05-05 10:11 | DVHPN2 ---
Progress Note Date Seen: May 05, 2025 Has the PT tested + for MRSA If YES, has PT been informed?: No Medical Necessity Reason Pt with a Central, PICC or Fol: No Objective vital signs Vital Sign Date Time Temp Pulse Resp B/P (MAP) Pulse Ox O2 Delivery O2 Flow Rate FiO2 05/05/25 09:00 97.7 128 16 149/73 (98) 98 97.7 05/05/25 08:21 Nasal Cannula* 2 28 Total Intake and Output 05/04/25 05/04/25 05/05/25 15:00 23:00 07:00 Intake Total 318 ml 1718 ml 375 ml Output Total 1650 ml 575 ml Balance 318 ml 68 ml -200 ml medications Current Medications Medications Dose Ordered Sig/Gladys Route Start Time Stop Time Status Last Admin Dose Admin Ondansetron HCl 4 mg Q4HP PRN IV 04/22/25 01:15 05/04/25 19:38 4 MG Acetaminophen 650 mg Q6HP PRN PO 04/22/25 01:15 04/26/25 06:34 650 MG Nitroglycerin 0.4 mg Q5MINP PRN SL 04/22/25 01:15 Insulin Glargine 10 units DAILY@1000 SC 04/22/25 10:00 05/04/25 10:38 10 UNITS Amino Acids 0 ml @ 0 mls/hr PER PHARMACY IV 04/22/25 13:30 Amino Acids/ Electrolytes/ Dextrose 1,000 ml @ 41 mls/hr DAILY@2200 IV 04/22/25 22:00 05/04/25 21:49 41 MLS/HR Potassium Chloride/Dextrose/ Sod Cl 1,000 ml @ 120 mls/hr Q8H20M IV 04/27/25 13:45 05/04/25 04:04 120 MLS/HR Ketorolac Tromethamine 15 mg Q6HPRN PRN IV 04/28/25 03:00 05/03/25 02:59 Cancel Acetaminophen 650 mg Q6HP PRN [place] 04/28/25 03:45 Sodium Chloride 10 ml QSHIFT@10,22 IV 04/28/25 22:00 05/04/25 21:48 10 ML Diagnostic Test (Pha) 1 strip AC 04/29/25 11:30 Cancel Insulin Human Regular FOLLOW SLIDING SCALE AC SC 04/29/25 11:30 Cancel Dextrose 50 ml UD IV 04/29/25 09:30 Cancel Diagnostic Test (Pha) 1 strip Q6HR 04/29/25 12:00 05/05/25 05:17 1 STRIP Insulin Human Regular FOLLOW SLIDING SCALE Q6HR SC 04/29/25 12:00 05/05/25 05:20 2 UNITS Dextrose 50 ml UD IV 04/29/25 09:30 Pantoprazole Sodium 40 mg DAILY IV 05/02/25 10:00 05/04/25 10:36 40 MG Hydralazine HCl 10 mg Q6HP PRN IV 05/02/25 11:45 05/05/25 05:45 10 MG Ciprofloxacin 200 ml @ 200 mls/hr BID IV 05/02/25 23:00 05/04/25 21:48 200 MLS/HR Ketorolac Tromethamine 15 mg Q6HPRN PRN IV 05/04/25 08:15 05/09/25 08:14 05/05/25 01:28 15 MG laboratory and microbiology Laboratory Tests 05/05/25 05:17 Test 05/05/25 05:17 Range/Units Serum Glucose 147 H 74-106 mg/dL Problem List/Assessment/Plan Problem List/Assessment/Plan 04/24/25 stable but slow blood loss continues, radiologist reviewed ct scan and advised against radiological intervention. she needs a colonoscopy to evaluate for possible tumor, I will order an MRI in case 04/26/25 PATIENT WILL NEED LEFT COLECTOMY, WILL TRY TO GIVE GOLYTELY IN ORDER TO AVOID A COLOSTOMY, OPERATION RISKS AND COMPLICATIONS EXPLAINED IN DETAIL 04/28/25 PATIENT IS ALERT, COOPERATIVE AND ASKS APPROPRIATE QUESTIONS ALL OF WHICH WERE ANSWERED TO HER SATISFACTION, I EXPLAINED OPERATIVE FINDINGS AND WILL TELL HER WHEN MICTOSCOPIC DIAGNOSIS IS AVAILABLE FROM THE PATHOLOGIST, ABDOMEN IS SOFT AND NON DISTENDED, APPROPRIATELY TENDER, NEEDS TOP AMBULATE. 04/30/25 no flatus, no bm, abdomen appropriately tender, wound clean and well approximated, needs to ambulate will dc ngt and allow ice chips 05/01/25 passed flatus, no bm, wound ok, drainage serous, vital signs stable, abdomen appropriately tender, will allow po clear liquids, must ambulate every 4 hours!! 05/05/25 passing flatus, no BM, wound clean and well approximated, drainage serous, abdomen non distended, will allow solids po Plan discussed with: Patient Dietary Evaluation Review Comments: 1. CCHO-60 diet when medically feasible 2. Consider TPN per pharmacy for complete nutrition 3. If GI accessible, and PO not an option, TF Glucerna@55ml/hr providing 79g pro, 1584kcal 1063ml free water Expected Outcomes/Goals: controlled DM, maintain wt COURTNEY BOYD MD May 05, 2025 10:11
[2025-05-05] MEDS ORDERED: POTASSIUM CHL 20MEQ/100ML 100 ML IV SCH (16:00)
--- NOTE | 2025-05-05 23:33 | DVHPN2 ---
Progress Note - Dictate Date Seen: May 05, 2025 Has the PT tested + for MRSA If YES, has PT been informed?: No Medical Necessity Reason Pt with a Central, PICC or Fol: No Subjective Postop day number 8 S/P laparotomy and left hemicolectomy No new complaints, patient resting comfortably NG-tube was removed and patient's diet has been advanced Patient has been passing gas but no bowel movement reported Preliminary pathology positive for malignancy, final report is pending Outpatient follow up with oncology services for further ongoing management Outpatient follow up with GI Services in six months to 12 months for repeat complete colonoscopy vital signs Vital Sign Date Time Temp Pulse Resp B/P (MAP) Pulse Ox O2 Delivery O2 Flow Rate FiO2 05/05/25 21:00 98.3 124 16 157/83 (107) 98 98.3 05/05/25 08:21 Nasal Cannula* 2 28 Total Intake and Output 05/04/25 05/04/25 05/05/25 15:00 23:00 07:00 Intake Total 318 ml 1718 ml 416 ml Output Total 1650 ml 575 ml Balance 318 ml 68 ml -159 ml medications Current Medications Medications Dose Ordered Sig/Gladys Route Start Time Stop Time Status Last Admin Dose Admin Ondansetron HCl 4 mg Q4HP PRN IV 04/22/25 01:15 05/04/25 19:38 4 MG Acetaminophen 650 mg Q6HP PRN PO 04/22/25 01:15 05/05/25 20:19 650 MG Nitroglycerin 0.4 mg Q5MINP PRN SL 04/22/25 01:15 Insulin Glargine 10 units DAILY@1000 SC 04/22/25 10:00 05/05/25 10:12 10 UNITS Amino Acids 0 ml @ 0 mls/hr PER PHARMACY IV 04/22/25 13:30 Amino Acids/ Electrolytes/ Dextrose 1,000 ml @ 41 mls/hr DAILY@2200 IV 04/22/25 22:00 05/05/25 21:40 41 MLS/HR Potassium Chloride/Dextrose/ Sod Cl 1,000 ml @ 120 mls/hr Q8H20M IV 04/27/25 13:45 05/04/25 04:04 120 MLS/HR Ketorolac Tromethamine 15 mg Q6HPRN PRN IV 04/28/25 03:00 05/03/25 02:59 Cancel Acetaminophen 650 mg Q6HP PRN [place] 04/28/25 03:45 Sodium Chloride 10 ml QSHIFT@10,22 IV 04/28/25 22:00 05/05/25 21:41 10 ML Diagnostic Test (Pha) 1 strip AC 04/29/25 11:30 Cancel Insulin Human Regular FOLLOW SLIDING SCALE AC SC 04/29/25 11:30 Cancel Dextrose 50 ml UD IV 04/29/25 09:30 Cancel Diagnostic Test (Pha) 1 strip Q6HR 04/29/25 12:00 05/05/25 18:02 1 STRIP Insulin Human Regular FOLLOW SLIDING SCALE Q6HR SC 04/29/25 12:00 05/05/25 12:00 12 UNITS Dextrose 50 ml UD IV 04/29/25 09:30 Pantoprazole Sodium 40 mg DAILY IV 05/02/25 10:00 05/05/25 10:15 40 MG Hydralazine HCl 10 mg Q6HP PRN IV 05/02/25 11:45 05/05/25 05:45 10 MG Ciprofloxacin 200 ml @ 200 mls/hr BID IV 05/02/25 23:00 05/05/25 21:40 200 MLS/HR Ketorolac Tromethamine 15 mg Q6HPRN PRN IV 05/04/25 08:15 05/09/25 08:14 05/05/25 23:19 15 MG Potassium Chloride 100 ml @ 50 mls/hr Q2H IV 05/05/25 16:00 05/05/25 19:59 Cancel objective Well-developed well-nourished lady no acute distress Pupils equal and react to light, extraocular movements intact Lungs are clear, CVS S1-S2 regular rate rhythm Abdomen is soft nontender nondistended Extremities without clubbing cyanosis or edema Neuro she is alert oriented x3 with no focal deficit laboratory and microbiology Laboratory Tests 05/05/25 05:17 Test 05/05/25 05:17 Range/Units Serum Glucose 147 H 74-106 mg/dL Dietary Evaluation Review Comments: 1. CCHO-60 diet when medically feasible 2. Consider TPN per pharmacy for complete nutrition 3. If GI accessible, and PO not an option, TF Glucerna@55ml/hr providing 79g pro, 1584kcal 1063ml free water Expected Outcomes/Goals: controlled DM, maintain wt Plan discussed with: Patient, Other (Dr Juarez) CC Plasma Assessment Blood Product Administration S: [id number] TUNDE ISIDRO MD May 05, 2025 23:33
[2025-05-06] VITALS (12 sets, daily range): BP systolic 131–168; BP diastolic 68–94; PULSE 104–133; RESP 14–19; TEMP 97.8–98.9; O2SAT 95–99
[2025-05-06 06:35] LABS: Mean Corpuscular Hemoglobin 20.6 pg (28.0-32.0); Nucleated Red Blood Cells % 0.0 %
[2025-05-06 06:37] LABS: Hematocrit 22.5 % (36.0-46.0); Hemoglobin 7.3 g/dL (12.2-16.2); Mean Corpuscular Volume 63.7 fL (80.0-100.0)
[2025-05-06 06:59] LABS: Alanine Aminotransferase 37 U/L (7-40); Alkaline Phosphatase 83 U/L (46-116); Anion Gap 8 (5-15); BUN/Creatinine Ratio 12.2 (10.0-20.0); Blood Urea Nitrogen 9 mg/dL (9-23); Carbon Dioxide 26 mmol/L (20-31); Chloride 106 mmol/L (98-107); Potassium 3.5 mmol/L (3.5-5.1); Sodium 140 mmol/L (136-145); Total Protein 5.9 g/dL (5.7-8.2); Triglycerides 94 mg/dL (< 150)
[2025-05-06 07:00] LABS: Albumin 2.8 g/dL (3.2-4.8); Bilirubin, Total 0.4 mg/dL (0.2-1.0); Calcium 8.0 mg/dL (8.7-10.4); Glucose 108 mg/dL (74-106); Magnesium 1.6 mg/dL (1.6-2.6)
[2025-05-06 07:57] LABS: Anisocytosis Moderate
--- NOTE | 2025-05-06 08:14 | DVHPN2 ---
Reviewed: Care Plan, H&P, Labs, Medications, Previous Orders, Radiology Changes from previous H/P or p: No Changes Eyes: No Pain, No Vision change, No Conjunctivae inflammation, No Eyelid inflammation, No Other, No Redness ENT: No Ear pain, No Ear discharge, No Nose pain, No Nose discharge, No Nose congestion, No Mouth pain, No Mouth swelling, No Throat pain, No Throat swelling, No Other Cardiovascular: No Chest Pain, No Palpitations, No Orthopnea, No Paroxysmal Noc. Dyspnea, No Edema, No Lt Headedness, No Other Respiratory: No Cough, No Dry, No Shortness of breath, No SOB with excertion, No Wheezing, No Hemoptysis, No Pleuritic Pain, No Sputum, No Other Gastrointestinal: Nausea, Vomiting, Abdominal Pain; No Diarrhea; Constipation; No Melena, No Hematochezia, No Other Genitourinary: No Dysuria, No Frequency, No Incontinence, No Hematuria, No Retention, No Other Musculoskeletal: No other, No neck pain, No shoulder pain, No arm pain, No back pain, No hand pain, No leg pain, No foot pain Skin: No Rash, No Lesions, No Jaundice, No Bruising, No Other Objective Vitals Vital Signs Date Time Temp Pulse Resp B/P (MAP) Pulse Ox O2 Delivery O2 Flow Rate FiO2 05/06/25 06:05 112 148/73 (98) 05/06/25 05:00 98.3 18 99 98.3 05/05/25 20:00 Room Air* 0 N/A Nasal Cannula* Intake/Output Intake and Output 05/06/25 07:00 Intake Total 2184 ml Output Total 610 ml Balance 1574 ml Intake Oral 825 ml IV Total 1359 ml Output Urine Total 600 ml Drainage Total 10 ml # Voids 2 # Bowel Movements 1 Medications Current Medications Medications Dose Ordered Sig/Gladys Route Start Time Stop Time Status Last Admin Dose Admin Ondansetron HCl 4 mg Q4HP PRN IV 04/22/25 01:15 05/04/25 19:38 4 MG Acetaminophen 650 mg Q6HP PRN PO 04/22/25 01:15 05/05/25 20:19 650 MG Nitroglycerin 0.4 mg Q5MINP PRN SL 04/22/25 01:15 Insulin Glargine 10 units DAILY@1000 SC 04/22/25 10:00 05/05/25 10:12 10 UNITS Amino Acids 0 ml @ 0 mls/hr PER PHARMACY IV 04/22/25 13:30 Amino Acids/ Electrolytes/ Dextrose 1,000 ml @ 41 mls/hr DAILY@2200 IV 04/22/25 22:00 05/05/25 21:40 41 MLS/HR Potassium Chloride/Dextrose/ Sod Cl 1,000 ml @ 120 mls/hr Q8H20M IV 04/27/25 13:45 05/04/25 04:04 120 MLS/HR Ketorolac Tromethamine 15 mg Q6HPRN PRN IV 04/28/25 03:00 05/03/25 02:59 Cancel Acetaminophen 650 mg Q6HP PRN [place] 04/28/25 03:45 Sodium Chloride 10 ml QSHIFT@10,22 IV 04/28/25 22:00 05/05/25 21:41 10 ML Diagnostic Test (Pha) 1 strip AC 04/29/25 11:30 Cancel Insulin Human Regular FOLLOW SLIDING SCALE AC SC 04/29/25 11:30 Cancel Dextrose 50 ml UD IV 04/29/25 09:30 Cancel Diagnostic Test (Pha) 1 strip Q6HR 04/29/25 12:00 05/06/25 05:19 1 STRIP Insulin Human Regular FOLLOW SLIDING SCALE Q6HR SC 04/29/25 12:00 05/06/25 00:30 8 UNITS Dextrose 50 ml UD IV 04/29/25 09:30 Pantoprazole Sodium 40 mg DAILY IV 05/02/25 10:00 05/05/25 10:15 40 MG Hydralazine HCl 10 mg Q6HP PRN IV 05/02/25 11:45 05/06/25 05:28 10 MG Ciprofloxacin 200 ml @ 200 mls/hr BID IV 05/02/25 23:00 05/05/25 21:40 200 MLS/HR Ketorolac Tromethamine 15 mg Q6HPRN PRN IV 05/04/25 08:15 05/09/25 08:14 05/06/25 06:43 15 MG Potassium Chloride 100 ml @ 50 mls/hr Q2H IV 05/05/25 16:00 05/05/25 19:59 Cancel Laboratory Results Laboratory Tests 05/06/25 05:10 Chemistry Test 05/06/25 05:10 Albumin 2.8 g/dL (3.2-4.8) L Calcium Level 8.0 mg/dL (8.7-10.4) L Magnesium Level 1.6 mg/dL (1.6-2.6) Phosphorus Level 2.4 mg/dL (2.4-5.1) Total Protein 5.9 g/dL (5.7-8.2) Lipid panel Test 05/06/25 05:10 Triglycerides Level 94 mg/dL (< 150) LFT Test 05/06/25 05:10 Alanine Aminotransferase (ALT) 37 U/L (7-40) Alkaline Phosphatase 83 U/L (46-116) Aspartate Amino Transferase (AST) 71 U/L (13-40) H Total Bilirubin 0.4 mg/dL (0.2-1.0) Urinalysis Test 04/29/25 14:40 Urine Color Yellow (Yellow) Urine Clarity Clear (Clear) Urine pH 7.0 (5.0-9.0) Urine Specific [place] 1.019 (1.001-1.035) Urine Protein Trace (Negative) H Urine Ketones Trace (Negative) Urine Blood Negative /uL (Negative) Urine Nitrite Negative (Negative) Urine Bilirubin Negative (Negative) Urine Urobilinogen Normal mg/dL (Negative) Urine Leukocyte Esterase Trace /uL (Negative) Urine RBC 2 /hpf (0 - 4) Urine Microscopic WBC 5 /HPF (0-5) Urine Squamous Epithelial Cells Few /hpf (<5) Urine Bacteria Few /hpf (None Seen) H Urine Glucose 3+ mg/dL (Normal) H Microbiology Microbiology Date/Time Source Procedure Growth Status 04/21/25 23:52 Blood Blood Culture - Final NO GROWTH AFTER 5 DAYS OF INCUBATION. 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 Juarez on 04/27/2025, biopsy report pending Septic shock secondary to pericolonic abscess Radiology consult for drainage per radiology there is no abscess, but it is a mass, MRI confirms possible pericolonic abscess and possible malignant mass, Cipro Flagyl IV Pericolonic abscess possibly secondary to diverticulitis: Surgical consult by Dr. Juarez appreciated Status post colonoscopy by GI Dr. Zeferino Marti with the following findings: Mass in the proximal descending colon; Trace internal hemorrhoids Chronic microcytic anemia Acute descending colitis Elevated CEA 26 concerning for colonic malignancy Acute complicated diverticulitis Possible history of coronary artery disease Hypertension Diabetes: Insulin sliding scale Hypercholesterolemia Recurrent UTIs Nutrition Clinimix PICC line ordered Post op blood loss anemia expected complication after major surgery: Hemoglobin down from 8.7 to 6.6, transfuse 1 unit of RBC, improved to 7.3 on 05/06/2025, will transfuse 1 unit RBC Time spent 67 minutes Advanced care planning time 20 minutes Patient is full code HAL Nava at bedside Son Cholo [phone] and daughter at bedside Awaiting Pathology report Patient passing flatus but no bowel movement clear liquids per Dr Juarez Plan discussed with: Patient Date of Service: May 06, 2025 Billing Provider: SHEKHAR SRIVASTAVA MD Common Visit Codes: [id number] INP/OBS CARE(HIGH) SHEKHAR SRIVASTAVA MD May 06, 2025 08:14
--- NOTE | 2025-05-06 08:43 | DVHPN2 ---
Subjective Date Seen: May 06, 2025 Post op day Post op day: 7 General: Normal HNT: Normal Cardiovascular: Normal Respiratory: Normal Gastrointestinal: Nausea, Abdominal Pain Genitourinary: Normal Musculoskeletal: Normal Neurological: Normal Objective Vitals Vital Sign Date Time Temp Pulse Resp B/P (MAP) Pulse Ox O2 Delivery O2 Flow Rate FiO2 05/06/25 06:05 112 148/73 (98) 05/06/25 05:00 98.3 18 99 98.3 05/05/25 20:00 Room Air* 0 N/A Nasal Cannula* Total Intake and Output 05/05/25 05/05/25 05/06/25 15:00 23:00 07:00 Intake Total 200 ml 1659 ml 325 ml Output Total 10 ml 600 ml Balance 190 ml 1059 ml 325 ml Medications Current Medications Medications Dose Ordered Sig/Gladys Route Start Time Stop Time Status Last Admin Dose Admin Ondansetron HCl 4 mg Q4HP PRN IV 04/22/25 01:15 05/04/25 19:38 4 MG Acetaminophen 650 mg Q6HP PRN PO 04/22/25 01:15 05/05/25 20:19 650 MG Nitroglycerin 0.4 mg Q5MINP PRN SL 04/22/25 01:15 Insulin Glargine 10 units DAILY@1000 SC 04/22/25 10:00 05/05/25 10:12 10 UNITS Amino Acids 0 ml @ 0 mls/hr PER PHARMACY IV 04/22/25 13:30 Amino Acids/ Electrolytes/ Dextrose 1,000 ml @ 41 mls/hr DAILY@2200 IV 04/22/25 22:00 05/05/25 21:40 41 MLS/HR Potassium Chloride/Dextrose/ Sod Cl 1,000 ml @ 120 mls/hr Q8H20M IV 04/27/25 13:45 05/04/25 04:04 120 MLS/HR Ketorolac Tromethamine 15 mg Q6HPRN PRN IV 04/28/25 03:00 05/03/25 02:59 Cancel Acetaminophen 650 mg Q6HP PRN [place] 04/28/25 03:45 Sodium Chloride 10 ml QSHIFT@10,22 IV 04/28/25 22:00 05/05/25 21:41 10 ML Diagnostic Test (Pha) 1 strip AC 04/29/25 11:30 Cancel Insulin Human Regular FOLLOW SLIDING SCALE AC SC 04/29/25 11:30 Cancel Dextrose 50 ml UD IV 04/29/25 09:30 Cancel Diagnostic Test (Pha) 1 strip Q6HR 04/29/25 12:00 05/06/25 05:19 1 STRIP Insulin Human Regular FOLLOW SLIDING SCALE Q6HR SC 04/29/25 12:00 05/06/25 00:30 8 UNITS Dextrose 50 ml UD IV 04/29/25 09:30 Pantoprazole Sodium 40 mg DAILY IV 05/02/25 10:00 05/05/25 10:15 40 MG Hydralazine HCl 10 mg Q6HP PRN IV 05/02/25 11:45 05/06/25 05:28 10 MG Ciprofloxacin 200 ml @ 200 mls/hr BID IV 05/02/25 23:00 05/05/25 21:40 200 MLS/HR Ketorolac Tromethamine 15 mg Q6HPRN PRN IV 05/04/25 08:15 05/09/25 08:14 05/06/25 06:43 15 MG Potassium Chloride 100 ml @ 50 mls/hr Q2H IV 05/05/25 16:00 05/05/25 19:59 Cancel General: Normal, Well developed, Obese Head/Eyes: Normal ENT: Normal Neck: Normal Lungs: Normal, Normal inspection Cardiovascular: Normal, Regular rate and rhythm Abdominal: Soft, No distension, Other (tender around opsite ) Musculoskeletal: Normal Labs and Microbiology Laboratory Tests 05/06/25 05:10 Test 05/06/25 05:10 Range/Units Serum Glucose 108 H 74-106 mg/dL Ass/Plan Labs and/or images reviewed: Labs reviewed by me, Image(s) reviewed by me Problem List 04/24/25 stable but slow blood loss continues, radiologist reviewed ct scan and advised against radiological intervention. she needs a colonoscopy to evaluate for possible tumor, I will order an MRI in case 04/26/25 PATIENT WILL NEED LEFT COLECTOMY, WILL TRY TO GIVE GOLYTELY IN ORDER TO AVOID A COLOSTOMY, OPERATION RISKS AND COMPLICATIONS EXPLAINED IN DETAIL 04/28/25 PATIENT IS ALERT, COOPERATIVE AND ASKS APPROPRIATE QUESTIONS ALL OF WHICH WERE ANSWERED TO HER SATISFACTION, I EXPLAINED OPERATIVE FINDINGS AND WILL TELL HER WHEN MICTOSCOPIC DIAGNOSIS IS AVAILABLE FROM THE PATHOLOGIST, ABDOMEN IS SOFT AND NON DISTENDED, APPROPRIATELY TENDER, NEEDS TOP AMBULATE. 04/30/25 no flatus, no bm, abdomen appropriately tender, wound clean and well approximated, needs to ambulate will dc ngt and allow ice chips 05/01/25 passed flatus, no bm, wound ok, drainage serous, vital signs stable, abdomen appropriately tender, will allow po clear liquids, must ambulate every 4 hours!! 05/05/25 passing flatus, no BM, wound clean and well approximated, drainage serous, abdomen non distended, will allow solids po Assessment/Plan date: 04/29/2025 S/p Exploratory laparotomy, Left hemicolectomy, Colocolostomy POD#2 chief complaint: Abdominal pain and nausea. review of systems: - Reports abdominal pain. - Experiences nausea following administration of pain medication. - Denies vomiting. physical exam: - Abdomen is soft, non-distended, with appropriate tenderness upon palpation. - Surgical wounds are clean and dry with vero intact. - LINWOOD drain contains serous fluid. assessment: Post-operative patient with complaints of abdominal pain and medication-induced nausea. plan: Continue with current treatment plan. Maintain NPO status. NG tube to remain on low continuous suction. Advised to ambulate. dressing to be removed tomorrow and remain off date: 05/02/2025 S/p Exploratory laparotomy, Left hemicolectomy, Colocolostomy chief complaint: Abdominal pain and nausea. review of systems: - Reports abdominal pain. - Experiences nausea from the pain - Denies vomiting. physical exam: - Abdomen is soft, non-distended, with appropriate tenderness upon palpation. - Surgical wounds are clean and dry with vero intact. - LINWOOD drain contains minimal serous fluid. assessment: Post-operative patient with complaints of abdominal pain plan: Continue with current treatment plan. Maintain NPO status. NG tube to remain on low continuous suction. Advised to ambulate. 05/06/2025 - Abdomen is soft and non-distended. Non-tender on palpation. - Surgical wound is clean, dry, and intact. - LINWOOD drain with 10 mL of serous drainage noted. - An abdominal binder was noted, which was reported as being too tight and was subsequently readjusted for comfort. - Blood pressure is stable. -Patient to ambulate - Continue current plan of care. - Will review notes to consider any changes to the management plan. - Continue to monitor oral intake, bowel function, and wound status. Prognosis: Good Plan discussed with patient, Dr. Juarez Visit Coding Surgery Date of Service if different f: May 06, 2025 Billing Provider: COURTNEY JUAREZ MD Surgery Visit Codes: [id number] INP/OBS CARE(HIGH) EDGARD LARES NP May 06, 2025 08:43
[2025-05-06] MEDS: IRON SUCROSE COMPLEX 110 ML IV SCH (12:13)
[2025-05-06] MEDS: POTASSIUM PHOSPHATE 22 MEQ in SODIUM CHL 0.9% 100 ML IV ONE (18:52)
--- NOTE | 2025-05-06 22:14 | DVHPN2 ---
Progress Note - Dictate Date Seen: May 06, 2025 Has the PT tested + for MRSA If YES, has PT been informed?: No Medical Necessity Reason Pt with a Central, PICC or Fol: No Subjective Postop day number 9 S/P laparotomy and left hemicolectomy No new complaints, patient resting comfortably NG-tube was removed and patient's diet has been advanced Patient has been passing gas and had a bowel movement Preliminary pathology positive for malignancy, final report is pending Outpatient follow up with oncology services for further ongoing management Outpatient follow up with GI Services in six months to 12 months for repeat complete colonoscopy vital signs Vital Sign Date Time Temp Pulse Resp B/P (MAP) Pulse Ox O2 Delivery O2 Flow Rate FiO2 05/06/25 18:48 158/93 05/06/25 18:40 98.9 129 18 98.9 05/06/25 16:00 97 05/06/25 08:00 Room Air* 0 N/A Nasal Cannula* Total Intake and Output 05/05/25 05/05/25 05/06/25 15:00 23:00 07:00 Intake Total 200 ml 1659 ml 325 ml Output Total 10 ml 600 ml Balance 190 ml 1059 ml 325 ml medications Current Medications Medications Dose Ordered Sig/Gladys Route Start Time Stop Time Status Last Admin Dose Admin Ondansetron HCl 4 mg Q4HP PRN IV 04/22/25 01:15 05/04/25 19:38 4 MG Acetaminophen 650 mg Q6HP PRN PO 04/22/25 01:15 05/06/25 17:35 650 MG Nitroglycerin 0.4 mg Q5MINP PRN SL 04/22/25 01:15 Insulin Glargine 10 units DAILY@1000 SC 04/22/25 10:00 05/06/25 12:16 10 UNITS Amino Acids 0 ml @ 0 mls/hr PER PHARMACY IV 04/22/25 13:30 Amino Acids/ Electrolytes/ Dextrose 1,000 ml @ 41 mls/hr DAILY@2200 IV 04/22/25 22:00 05/06/25 21:44 41 MLS/HR Potassium Chloride/Dextrose/ Sod Cl 1,000 ml @ 120 mls/hr Q8H20M IV 04/27/25 13:45 05/04/25 04:04 120 MLS/HR Ketorolac Tromethamine 15 mg Q6HPRN PRN IV 04/28/25 03:00 05/03/25 02:59 Cancel Acetaminophen [address] 04/28/25 03:45 Sodium Chloride 10 ml QSHIFT@10,22 IV 04/28/25 22:00 05/06/25 21:44 10 ML Diagnostic Test (Pha) 1 strip AC 04/29/25 11:30 Cancel Insulin Human Regular FOLLOW SLIDING SCALE AC SC 04/29/25 11:30 Cancel Dextrose 50 ml UD IV 04/29/25 09:30 Cancel Diagnostic Test (Pha) 1 strip Q6HR 04/29/25 12:00 05/06/25 18:16 1 STRIP Insulin Human Regular FOLLOW SLIDING SCALE Q6HR SC 04/29/25 12:00 05/06/25 18:16 4 UNITS Dextrose 50 ml UD IV 04/29/25 09:30 Pantoprazole Sodium 40 mg DAILY IV 05/02/25 10:00 05/06/25 09:00 40 MG Hydralazine HCl 10 mg Q6HP PRN IV 05/02/25 11:45 05/06/25 18:48 10 MG Ciprofloxacin 200 ml @ 200 mls/hr BID IV 05/02/25 23:00 05/06/25 21:44 200 MLS/HR Ketorolac Tromethamine 15 mg Q6HPRN PRN IV 05/04/25 08:15 05/09/25 08:14 05/06/25 18:52 15 MG Potassium Chloride 100 ml @ 50 mls/hr Q2H IV 05/05/25 16:00 05/05/25 19:59 Cancel Iron Sucrose 110 ml @ 110 mls/hr DAILY@1200 IV 05/06/25 12:00 05/10/25 12:59 05/06/25 12:13 110 MLS/HR objective Well-developed well-nourished lady no acute distress Pupils equal and react to light, extraocular movements intact Lungs are clear, CVS S1-S2 regular rate rhythm Abdomen is soft nontender nondistended Extremities without clubbing cyanosis or edema Neuro she is alert oriented x3 with no focal deficit laboratory and microbiology Laboratory Tests 05/06/25 05:10 Test 05/06/25 05:10 Range/Units Serum Glucose 108 H 74-106 mg/dL Problems(with codes): (1) Colonic mass (2) Elevated CEA (3) Abnormal finding on GI tract imaging (4) Pericolonic abscess due to diverticulitis (5) Left flank pain Prognosis Plan Ambulate patient Advance diet Discharge planning as per hospitalist and surgical team Await final pathology report Outpatient follow up with oncology services for further ongoing management Outpatient follow up with GI Services in six months to 12 months for repeat complete colonoscopy Dietary Evaluation Review Comments: 1. CCHO-60 diet when medically feasible 2. Consider TPN per pharmacy for complete nutrition 3. If GI accessible, and PO not an option, TF Glucerna@55ml/hr providing 79g pro, 1584kcal 1063ml free water Expected Outcomes/Goals: controlled DM, maintain wt Plan discussed with: Patient, Daughter CC Plasma Assessment Blood Product Administration S: [id number] TUNDE ISIDRO MD May 06, 2025 22:14
[2025-05-07] VITALS (9 sets, daily range): BP systolic 151–165; BP diastolic 80–94; PULSE 80–119; RESP 16–20; TEMP 97.8–99.3; O2SAT 95–98
--- NOTE | 2025-05-07 08:45 | DVHPN2 ---
Reviewed: Care Plan, H&P, Labs, Medications, Previous Orders, Radiology Changes from previous H/P or p: No Changes Eyes: No Pain, No Vision change, No Conjunctivae inflammation, No Eyelid inflammation, No Other, No Redness ENT: No Ear pain, No Ear discharge, No Nose pain, No Nose discharge, No Nose congestion, No Mouth pain, No Mouth swelling, No Throat pain, No Throat swelling, No Other Cardiovascular: No Chest Pain, No Palpitations, No Orthopnea, No Paroxysmal Noc. Dyspnea, No Edema, No Lt Headedness, No Other Respiratory: No Cough, No Dry, No Shortness of breath, No SOB with excertion, No Wheezing, No Hemoptysis, No Pleuritic Pain, No Sputum, No Other Gastrointestinal: Nausea, Vomiting, Abdominal Pain; No Diarrhea; Constipation; No Melena, No Hematochezia, No Other Genitourinary: No Dysuria, No Frequency, No Incontinence, No Hematuria, No Retention, No Other Musculoskeletal: No other, No neck pain, No shoulder pain, No arm pain, No back pain, No hand pain, No leg pain, No foot pain Skin: No Rash, No Lesions, No Jaundice, No Bruising, No Other Objective Vitals Vital Signs Date Time Temp Pulse Resp B/P (MAP) Pulse Ox O2 Delivery O2 Flow Rate FiO2 05/07/25 08:00 80 Room Air* 0 N/A Nasal Cannula* 05/07/25 06:53 151/80 05/07/25 05:00 97.8 20 96 97.8 Intake/Output Intake and Output 05/07/25 07:00 Intake Total 1950 ml Output Total 300 ml Balance 1650 ml Intake Oral 250 ml IV Total 1400 ml Blood Product 300 ml Output Urine Total 300 ml Medications Current Medications Medications Dose Ordered Sig/Gladys Route Start Time Stop Time Status Last Admin Dose Admin Ondansetron HCl 4 mg Q4HP PRN IV 04/22/25 01:15 05/04/25 19:38 4 MG Acetaminophen 650 mg Q6HP PRN PO 04/22/25 01:15 05/06/25 17:35 650 MG Nitroglycerin 0.4 mg Q5MINP PRN SL 04/22/25 01:15 Insulin Glargine 10 units DAILY@1000 SC 04/22/25 10:00 05/06/25 12:16 10 UNITS Amino Acids 0 ml @ 0 mls/hr PER PHARMACY IV 04/22/25 13:30 Amino Acids/ Electrolytes/ Dextrose 1,000 ml @ 41 mls/hr DAILY@2200 IV 04/22/25 22:00 05/06/25 21:44 41 MLS/HR Potassium Chloride/Dextrose/ Sod Cl 1,000 ml @ 120 mls/hr Q8H20M IV 04/27/25 13:45 05/04/25 04:04 120 MLS/HR Ketorolac Tromethamine 15 mg Q6HPRN PRN IV 04/28/25 03:00 05/03/25 02:59 Cancel Acetaminophen 650 mg Q6HP PRN IA 04/28/25 03:45 Sodium Chloride 10 ml QSHIFT@10,22 IV 04/28/25 22:00 05/06/25 21:44 10 ML Diagnostic Test (Pha) 1 strip AC 04/29/25 11:30 Cancel Insulin Human Regular FOLLOW SLIDING SCALE AC SC 04/29/25 11:30 Cancel Dextrose 50 ml UD IV 04/29/25 09:30 Cancel Diagnostic Test (Pha) 1 strip Q6HR 04/29/25 12:00 05/07/25 05:08 1 STRIP Insulin Human Regular FOLLOW SLIDING SCALE Q6HR SC 04/29/25 12:00 05/07/25 05:09 4 UNITS Dextrose 50 ml UD IV 04/29/25 09:30 Pantoprazole Sodium 40 mg DAILY IV 05/02/25 10:00 05/06/25 09:00 40 MG Hydralazine HCl 10 mg Q6HP PRN IV 05/02/25 11:45 05/07/25 06:53 10 MG Ciprofloxacin 200 ml @ 200 mls/hr BID IV 05/02/25 23:00 05/06/25 21:44 200 MLS/HR Ketorolac Tromethamine 15 mg Q6HPRN PRN IV 05/04/25 08:15 05/09/25 08:14 05/07/25 02:42 15 MG Potassium Chloride 100 ml @ 50 mls/hr Q2H IV 05/05/25 16:00 05/05/25 19:59 Cancel Iron Sucrose 110 ml @ 110 mls/hr DAILY@1200 IV 05/06/25 12:00 05/10/25 12:59 05/06/25 12:13 110 MLS/HR Laboratory Results Laboratory Tests 05/06/25 05:10 Urinalysis Test 04/29/25 14:40 Urine Color Yellow (Yellow) Urine Clarity Clear (Clear) Urine pH 7.0 (5.0-9.0) Urine Specific [place] 1.019 (1.001-1.035) Urine Protein Trace (Negative) H Urine Ketones Trace (Negative) Urine Blood Negative /uL (Negative) Urine Nitrite Negative (Negative) Urine Bilirubin Negative (Negative) Urine Urobilinogen Normal mg/dL (Negative) Urine Leukocyte Esterase Trace /uL (Negative) Urine RBC 2 /hpf (0 - 4) Urine Microscopic WBC 5 /HPF (0-5) Urine Squamous Epithelial Cells Few /hpf (<5) Urine Bacteria Few /hpf (None Seen) H Urine Glucose 3+ mg/dL (Normal) H Microbiology Microbiology Date/Time Source Procedure Growth Status 04/26/25 18:18 Stool Ova and Parasites - Final Complete 04/26/25 18:18 Stool - Final Complete 04/21/25 23:52 Blood Blood Culture - Final NO GROWTH AFTER 5 DAYS OF INCUBATION. 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 Woods on 04/27/2025, biopsy report pending Septic shock secondary to pericolonic abscess Radiology consult for drainage per radiology there is no abscess, but it is a mass, MRI confirms possible pericolonic abscess and possible malignant mass, Cipro Flagyl IV Pericolonic abscess possibly secondary to diverticulitis: Surgical consult by Dr. Woods appreciated Status post colonoscopy by GI Dr. Zeferino Marti with the following findings: Mass in the proximal descending colon; Trace internal hemorrhoids Chronic microcytic anemia Acute descending colitis Elevated CEA 26 concerning for colonic malignancy Acute complicated diverticulitis Possible history of coronary artery disease Hypertension Diabetes: Insulin sliding scale Hypercholesterolemia Recurrent UTIs Nutrition Clinimix PICC line ordered Post op blood loss anemia expected complication after major surgery: Hemoglobin down from 8.7 to 6.6, transfuse 1 unit of RBC, improved to 7.3 on 05/06/2025, will transfuse 1 unit RBC Time spent 67 minutes Advanced care planning time 20 minutes Patient is full code RN Elijah at bedside Son Cholo [phone] and daughter at bedside Awaiting Pathology report Patient passing flatus but no bowel movement clear liquids per Dr Woods Plan discussed with: Patient My Orders Orders - SHEKHAR SRIVASTAVA MD Procedure Category Date Status Time Complete Blood Count LAB 05/06/25 Logged 04:00 * Inspector Exhaust Emissions CONS 05/06/25 Transmitted Consult Date of Service: May 07, 2025 Billing Provider: SHEKHAR SRIVASTAVA MD Common Visit Codes: [id number] INP/OBS CARE(HIGH) SHEKHAR SRIVASTAVA MD May 07, 2025 08:44
--- NOTE | 2025-05-07 08:46 | DVHPN2 ---
Subjective Date Seen: May 07, 2025 Post op day Post op day: 10 Patient reports: No new complaints General: Normal HNT: Normal Cardiovascular: Normal Respiratory: Normal Gastrointestinal: Nausea, Abdominal Pain Genitourinary: Normal Musculoskeletal: Normal Neurological: Normal Objective Vitals Vital Sign Date Time Temp Pulse Resp B/P (MAP) Pulse Ox O2 Delivery O2 Flow Rate FiO2 05/07/25 08:00 80 Room Air* 0 N/A Nasal Cannula* 05/07/25 06:53 151/80 05/07/25 05:00 97.8 20 96 97.8 Total Intake and Output 05/06/25 05/06/25 05/07/25 15:00 23:00 07:00 Intake Total 200 ml 1750 ml 0 ml Output Total 300 ml Balance 200 ml 1750 ml -300 ml Medications Current Medications Medications Dose Ordered Sig/Gladys Route Start Time Stop Time Status Last Admin Dose Admin Ondansetron HCl 4 mg Q4HP PRN IV 04/22/25 01:15 05/04/25 19:38 4 MG Acetaminophen 650 mg Q6HP PRN PO 04/22/25 01:15 05/06/25 17:35 650 MG Nitroglycerin 0.4 mg Q5MINP PRN SL 04/22/25 01:15 Insulin Glargine 10 units DAILY@1000 SC 04/22/25 10:00 05/06/25 12:16 10 UNITS Amino Acids 0 ml @ 0 mls/hr PER PHARMACY IV 04/22/25 13:30 Amino Acids/ Electrolytes/ Dextrose 1,000 ml @ 41 mls/hr DAILY@2200 IV 04/22/25 22:00 05/06/25 21:44 41 MLS/HR Potassium Chloride/Dextrose/ Sod Cl 1,000 ml @ 120 mls/hr Q8H20M IV 04/27/25 13:45 05/04/25 04:04 120 MLS/HR Ketorolac Tromethamine 15 mg Q6HPRN PRN IV 04/28/25 03:00 05/03/25 02:59 Cancel Acetaminophen 650 mg Q6HP PRN WI 04/28/25 03:45 Sodium Chloride 10 ml QSHIFT@10,22 IV 04/28/25 22:00 05/06/25 21:44 10 ML Diagnostic Test (Pha) 1 strip AC 04/29/25 11:30 Cancel Insulin Human Regular FOLLOW SLIDING SCALE AC SC 04/29/25 11:30 Cancel Dextrose 50 ml UD IV 04/29/25 09:30 Cancel Diagnostic Test (Pha) 1 strip Q6HR 04/29/25 12:00 05/07/25 05:08 1 STRIP Insulin Human Regular FOLLOW SLIDING SCALE Q6HR SC 04/29/25 12:00 05/07/25 05:09 4 UNITS Dextrose 50 ml UD IV 04/29/25 09:30 Pantoprazole Sodium 40 mg DAILY IV 05/02/25 10:00 05/06/25 09:00 40 MG Hydralazine HCl 10 mg Q6HP PRN IV 05/02/25 11:45 05/07/25 06:53 10 MG Ciprofloxacin 200 ml @ 200 mls/hr BID IV 05/02/25 23:00 05/06/25 21:44 200 MLS/HR Ketorolac Tromethamine 15 mg Q6HPRN PRN IV 05/04/25 08:15 05/09/25 08:14 05/07/25 02:42 15 MG Potassium Chloride 100 ml @ 50 mls/hr Q2H IV 05/05/25 16:00 05/05/25 19:59 Cancel Iron Sucrose 110 ml @ 110 mls/hr DAILY@1200 IV 05/06/25 12:00 05/10/25 12:59 05/06/25 12:13 110 MLS/HR General: Normal, Well developed, Obese Head/Eyes: Normal ENT: Normal Neck: Normal Lungs: Normal, Normal inspection Cardiovascular: Normal, Regular rate and rhythm Abdominal: Soft, No distension, Other (tender around opsite ) Musculoskeletal: Normal Labs and Microbiology Laboratory Tests 05/06/25 05:10 Test 05/06/25 05:10 Range/Units Serum Glucose 108 H 74-106 mg/dL Ass/Plan Labs and/or images reviewed: Labs reviewed by me, Image(s) reviewed by me Problem List 04/24/25 stable but slow blood loss continues, radiologist reviewed ct scan and advised against radiological intervention. she needs a colonoscopy to evaluate for possible tumor, I will order an MRI in case 04/26/25 PATIENT WILL NEED LEFT COLECTOMY, WILL TRY TO GIVE GOLYTELY IN ORDER TO AVOID A COLOSTOMY, OPERATION RISKS AND COMPLICATIONS EXPLAINED IN DETAIL 04/28/25 PATIENT IS ALERT, COOPERATIVE AND ASKS APPROPRIATE QUESTIONS ALL OF WHICH WERE ANSWERED TO HER SATISFACTION, I EXPLAINED OPERATIVE FINDINGS AND WILL TELL HER WHEN MICTOSCOPIC DIAGNOSIS IS AVAILABLE FROM THE PATHOLOGIST, ABDOMEN IS SOFT AND NON DISTENDED, APPROPRIATELY TENDER, NEEDS TOP AMBULATE. 04/30/25 no flatus, no bm, abdomen appropriately tender, wound clean and well approximated, needs to ambulate will dc ngt and allow ice chips 05/01/25 passed flatus, no bm, wound ok, drainage serous, vital signs stable, abdomen appropriately tender, will allow po clear liquids, must ambulate every 4 hours!! 05/05/25 passing flatus, no BM, wound clean and well approximated, drainage serous, abdomen non distended, will allow solids po Assessment/Plan date: 04/29/2025 S/p Exploratory laparotomy, Left hemicolectomy, Colocolostomy POD#2 chief complaint: Abdominal pain and nausea. review of systems: - Reports abdominal pain. - Experiences nausea following administration of pain medication. - Denies vomiting. physical exam: - Abdomen is soft, non-distended, with appropriate tenderness upon palpation. - Surgical wounds are clean and dry with vero intact. - LINWOOD drain contains serous fluid. assessment: Post-operative patient with complaints of abdominal pain and medication-induced nausea. plan: Continue with current treatment plan. Maintain NPO status. NG tube to remain on low continuous suction. Advised to ambulate. dressing to be removed tomorrow and remain off date: 05/02/2025 S/p Exploratory laparotomy, Left hemicolectomy, Colocolostomy chief complaint: Abdominal pain and nausea. review of systems: - Reports abdominal pain. - Experiences nausea from the pain - Denies vomiting. physical exam: - Abdomen is soft, non-distended, with appropriate tenderness upon palpation. - Surgical wounds are clean and dry with vero intact. - LINWOOD drain contains minimal serous fluid. assessment: Post-operative patient with complaints of abdominal pain plan: Continue with current treatment plan. Maintain NPO status. NG tube to remain on low continuous suction. Advised to ambulate. 05/06/2025 - Abdomen is soft and non-distended. Non-tender on palpation. - Surgical wound is clean, dry, and intact. - LINWOOD drain with 10 mL of serous drainage noted. - An abdominal binder was noted, which was reported as being too tight and was subsequently readjusted for comfort. - Blood pressure is stable. -Patient to ambulate - Continue current plan of care. - Will review notes to consider any changes to the management plan. - Continue to monitor oral intake, bowel function, and wound status. 05/07/2025 - Abdomen is soft and non-distended. Non-tender on palpation. - Surgical wound is clean, dry, and intact. - LINWOOD drain with 0 mL of serous drainage noted. Plan: -Patient to ambulate -advance diet Prognosis: Good Plan discussed with patient, Dr. Juarez Visit Coding Surgery Date of Service if different f: May 07, 2025 Billing Provider: COURNTEY JUAREZ MD Surgery Visit Codes: [id number] INP/OBS CARE(HIGH) EDGARD LARES NO BAKE MOLDER May 07, 2025 08:46
[2025-05-07 11:40] LABS: Nucleated Red Blood Cells % 0.1 %
[2025-05-07 11:42] LABS: Hematocrit 30.0 % (36.0-46.0); Hemoglobin 8.9 g/dL (12.2-16.2); Mean Corpuscular Hemoglobin 21.6 pg (28.0-32.0); Mean Corpuscular Volume 72.2 fL (80.0-100.0)
[2025-05-07] MEDS: dilTIAZem 120MG ER CAP PO ONE (11:57)
[2025-05-07] MEDS: LOSARTAN POTASSIUM 50 MG TAB PO ONE (11:58)
[2025-05-07] MEDS: SPIRONOLACTONE 25 MG TAB PO ONE (13:13)
[2025-05-07 14:15] LABS: Anion Gap 11 (5-15)
[2025-05-07 14:21] LABS: Alkaline Phosphatase 104 U/L (46-116); BUN/Creatinine Ratio 9.6 (10.0-20.0); Blood Urea Nitrogen 9 mg/dL (9-23); Calcium 8.3 mg/dL (8.7-10.4); Carbon Dioxide 21 mmol/L (20-31); Chloride 102 mmol/L (98-107); Glucose 248 mg/dL (74-106); Magnesium 1.6 mg/dL (1.6-2.6); Potassium 3.7 mmol/L (3.5-5.1); Sodium 134 mmol/L (136-145); Total Protein 7.0 g/dL (5.7-8.2)
[2025-05-07 14:30] LABS: Alanine Aminotransferase 62 U/L (7-40); Albumin 3.3 g/dL (3.2-4.8); Bilirubin, Total 0.4 mg/dL (0.2-1.0)
[2025-05-07] MEDS: POTASSIUM PHOSPHATE 44 MEQ in D5W 5% 250 ML IV ONE (17:00)
[2025-05-07] MEDS ORDERED: MAGNESIUM SULFATE 1GM/100ML 100 ML IV SCH (17:00)
[2025-05-07] MEDS: MAGNESIUM SULFATE 1GM/100ML 100 ML IV SCH (17:38)
--- NOTE | 2025-05-07 21:09 | DVHPN2 ---
Progress Note - Dictate Date Seen: May 07, 2025 Has the PT tested + for MRSA If YES, has PT been informed?: No Medical Necessity Reason Pt with a Central, PICC or Fol: No Subjective Postop day number 10 S/P laparotomy and left hemicolectomy No new complaints, patient resting comfortably NG-tube was removed and patient's diet has been advanced Patient has been passing gas and had a bowel movement Preliminary pathology positive for malignancy, final report reviewed Patient has moderately differentiated adenocarcinoma locally perforated extending to the peritoneal edge 0/12 lymph nodes were positive, report discussed with patient vital signs Vital Sign Date Time Temp Pulse Resp B/P (MAP) Pulse Ox O2 Delivery O2 Flow Rate FiO2 05/07/25 17:00 99.0 117 19 162/89 (113) 98 99.0 05/07/25 08:00 Room Air* 0 N/A Nasal Cannula* Total Intake and Output 05/06/25 05/06/25 05/07/25 15:00 23:00 07:00 Intake Total 200 ml 1750 ml 0 ml Output Total 300 ml Balance 200 ml 1750 ml -300 ml medications Current Medications Medications Dose Ordered Sig/Gladys Route Start Time Stop Time Status Last Admin Dose Admin Ondansetron HCl 4 mg Q4HP PRN IV 04/22/25 01:15 05/04/25 19:38 4 MG Acetaminophen 650 mg Q6HP PRN PO 04/22/25 01:15 05/07/25 14:01 650 MG Nitroglycerin 0.4 mg Q5MINP PRN SL 04/22/25 01:15 Insulin Glargine 10 units DAILY@1000 SC 04/22/25 10:00 05/07/25 09:58 10 UNITS Amino Acids 0 ml @ 0 mls/hr PER PHARMACY IV 04/22/25 13:30 Amino Acids/ Electrolytes/ Dextrose 1,000 ml @ 41 mls/hr DAILY@2200 IV 04/22/25 22:00 05/06/25 21:44 41 MLS/HR Potassium Chloride/Dextrose/ Sod Cl 1,000 ml @ 120 mls/hr Q8H20M IV 04/27/25 13:45 05/04/25 04:04 120 MLS/HR Ketorolac Tromethamine 15 mg Q6HPRN PRN IV 04/28/25 03:00 05/03/25 02:59 Cancel Acetaminophen 650 mg Q6HP PRN ND 04/28/25 03:45 Sodium Chloride 10 ml QSHIFT@10,22 IV 04/28/25 22:00 05/07/25 09:59 10 ML Diagnostic Test (Pha) 1 strip AC 04/29/25 11:30 Cancel Insulin Human Regular FOLLOW SLIDING SCALE AC SC 04/29/25 11:30 Cancel Dextrose 50 ml UD IV 04/29/25 09:30 Cancel Diagnostic Test (Pha) 1 strip Q6HR 04/29/25 12:00 05/07/25 17:00 1 STRIP Insulin Human Regular FOLLOW SLIDING SCALE Q6HR SC 04/29/25 12:00 05/07/25 12:27 16 UNITS Dextrose 50 ml UD IV 04/29/25 09:30 Pantoprazole Sodium 40 mg DAILY IV 05/02/25 10:00 05/07/25 09:39 40 MG Hydralazine HCl 10 mg Q6HP PRN IV 05/02/25 11:45 05/07/25 06:53 10 MG Ciprofloxacin 200 ml @ 200 mls/hr BID IV 05/02/25 23:00 05/07/25 09:39 200 MLS/HR Ketorolac Tromethamine 15 mg Q6HPRN PRN IV 05/04/25 08:15 05/09/25 08:14 05/07/25 16:51 15 MG Potassium Chloride 100 ml @ 50 mls/hr Q2H IV 05/05/25 16:00 05/05/25 19:59 Cancel Iron Sucrose 110 ml @ 110 mls/hr DAILY@1200 IV 05/06/25 12:00 05/10/25 12:59 05/07/25 12:01 110 MLS/HR Diltiazem HCl 240 mg DAILY PO 05/08/25 10:00 Losartan Potassium 50 mg DAILY PO 05/08/25 10:00 Spironolactone 25 mg DAILY PO 05/08/25 10:00 objective Well-developed well-nourished lady no acute distress Pupils equal and react to light, extraocular movements intact Lungs are clear, CVS S1-S2 regular rate rhythm Abdomen is soft nontender nondistended Extremities without clubbing cyanosis or edema Neuro she is alert oriented x3 with no focal deficit laboratory and microbiology Laboratory Tests 05/07/25 13:20 05/07/25 11:00 Test 05/07/25 13:20 Range/Units Serum Glucose 248 H 74-106 mg/dL Problems(with codes): (1) Colonic mass (2) Elevated CEA (3) Abnormal finding on GI tract imaging (4) Primary adenocarcinoma of descending colon and splenic flexure Prognosis Plan Advance diet as tolerated Discharge planning as per hospitalist Outpatient follow up with oncology services for further ongoing management Outpatient follow up with GI Services in six months to 12 months for repeat complete colonoscopy Dietary Evaluation Review Comments: 1. CCHO-60 diet when medically feasible 2. Consider TPN per pharmacy for complete nutrition 3. If GI accessible, and PO not an option, TF Glucerna@55ml/hr providing 79g pro, 1584kcal 1063ml free water Expected Outcomes/Goals: controlled DM, maintain wt Plan discussed with: Patient CC Plasma Assessment Blood Product Administration S: [id number] TUNDE ISIDRO MD May 07, 2025 21:09
[2025-05-08] VITALS (8 sets, daily range): BP systolic 140–164; BP diastolic 70–85; PULSE 87–113; RESP 16–18; TEMP 97.9–99; O2SAT 92–98
[2025-05-08 06:32] LABS: Hematocrit 28.0 % (36.0-46.0)
[2025-05-08 06:38] LABS: Hemoglobin 9.0 g/dL (12.2-16.2); Mean Corpuscular Hemoglobin 21.5 pg (28.0-32.0); Mean Corpuscular Volume 66.8 fL (80.0-100.0); Nucleated Red Blood Cells % 0.0 %
[2025-05-08 06:55] LABS: Alkaline Phosphatase 93 U/L (46-116); Anion Gap 9 (5-15); BUN/Creatinine Ratio 8.5 (10.0-20.0); Carbon Dioxide 24 mmol/L (20-31); Magnesium 2.1 mg/dL (1.6-2.6); Potassium 4.2 mmol/L (3.5-5.1); Sodium 140 mmol/L (136-145); Total Protein 6.4 g/dL (5.7-8.2)
[2025-05-08 06:56] LABS: Bilirubin, Total 0.4 mg/dL (0.2-1.0)
[2025-05-08 06:58] LABS: Chloride 107 mmol/L (98-107); Glucose 157 mg/dL (74-106)
[2025-05-08 06:59] LABS: Alanine Aminotransferase 52 U/L (7-40); Albumin 3.1 g/dL (3.2-4.8); Blood Urea Nitrogen 6 mg/dL (9-23); Calcium 8.0 mg/dL (8.7-10.4)
--- NOTE | 2025-05-08 08:36 | DVHPN2 ---
Reviewed: Care Plan, H&P, Labs, Medications, Previous Orders, Radiology Changes from previous H/P or p: No Changes Eyes: No Pain, No Vision change, No Conjunctivae inflammation, No Eyelid inflammation, No Other, No Redness ENT: No Ear pain, No Ear discharge, No Nose pain, No Nose discharge, No Nose congestion, No Mouth pain, No Mouth swelling, No Throat pain, No Throat swelling, No Other Cardiovascular: No Chest Pain, No Palpitations, No Orthopnea, No Paroxysmal Noc. Dyspnea, No Edema, No Lt Headedness, No Other Respiratory: No Cough, No Dry, No Shortness of breath, No SOB with excertion, No Wheezing, No Hemoptysis, No Pleuritic Pain, No Sputum, No Other Gastrointestinal: Nausea, Vomiting, Abdominal Pain, Constipation Genitourinary: No Dysuria, No Frequency, No Incontinence, No Hematuria, No Retention, No Other Musculoskeletal: No other, No neck pain, No shoulder pain, No arm pain, No back pain, No hand pain, No leg pain, No foot pain Skin: No Rash, No Lesions, No Jaundice, No Bruising, No Other Objective Vitals Vital Signs Date Time Temp Pulse Resp B/P (MAP) Pulse Ox O2 Delivery O2 Flow Rate FiO2 05/08/25 08:00 88 Room Air* 0 N/A Nasal Cannula* 05/08/25 04:50 98.1 17 140/76 (97) 96 98.1 Intake/Output Intake and Output 05/08/25 07:00 Intake Total 2330 ml Output Total 5 ml Balance 2325 ml Intake Oral 2130 ml IV Total 200 ml Drainage Total 5 ml # Voids 7 Medications Current Medications Medications Dose Ordered Sig/Gladys Route Start Time Stop Time Status Last Admin Dose Admin Ondansetron HCl 4 mg Q4HP PRN IV 04/22/25 01:15 05/04/25 19:38 4 MG Acetaminophen 650 mg Q6HP PRN PO 04/22/25 01:15 05/07/25 21:35 650 MG Nitroglycerin 0.4 mg Q5MINP PRN SL 04/22/25 01:15 Insulin Glargine 10 units DAILY@1000 SC 04/22/25 10:00 05/07/25 09:58 10 UNITS Amino Acids 0 ml @ 0 mls/hr PER PHARMACY IV 04/22/25 13:30 Amino Acids/ Electrolytes/ Dextrose 1,000 ml @ 41 mls/hr DAILY@2200 IV 04/22/25 22:00 05/06/25 21:44 41 MLS/HR Potassium Chloride/Dextrose/ Sod Cl 1,000 ml @ 120 mls/hr Q8H20M IV 04/27/25 13:45 05/08/25 04:45 120 MLS/HR Ketorolac Tromethamine 15 mg Q6HPRN PRN IV 04/28/25 03:00 05/03/25 02:59 Cancel Acetaminophen 650 mg Q6HP PRN IA 04/28/25 03:45 Sodium Chloride 10 ml QSHIFT@10,22 IV 04/28/25 22:00 05/07/25 22:04 10 ML Diagnostic Test (Pha) 1 strip AC 04/29/25 11:30 Cancel Insulin Human Regular FOLLOW SLIDING SCALE AC SC 04/29/25 11:30 Cancel Dextrose 50 ml UD IV 04/29/25 09:30 Cancel Diagnostic Test (Pha) 1 strip Q6HR 04/29/25 12:00 05/08/25 05:04 1 STRIP Insulin Human Regular FOLLOW SLIDING SCALE Q6HR SC 04/29/25 12:00 05/08/25 05:04 4 UNITS Dextrose 50 ml UD IV 04/29/25 09:30 Pantoprazole Sodium 40 mg DAILY IV 05/02/25 10:00 05/07/25 09:39 40 MG Hydralazine HCl 10 mg Q6HP PRN IV 05/02/25 11:45 05/07/25 06:53 10 MG Ciprofloxacin 200 ml @ 200 mls/hr BID IV 05/02/25 23:00 05/07/25 22:04 200 MLS/HR Ketorolac Tromethamine 15 mg Q6HPRN PRN IV 05/04/25 08:15 05/09/25 08:14 05/08/25 01:50 15 MG Potassium Chloride 100 ml @ 50 mls/hr Q2H IV 05/05/25 16:00 05/05/25 19:59 Cancel Iron Sucrose 110 ml @ 110 mls/hr DAILY@1200 IV 05/06/25 12:00 05/10/25 12:59 05/07/25 12:01 110 MLS/HR Diltiazem HCl 240 mg DAILY PO 05/08/25 10:00 Losartan Potassium 50 mg DAILY PO 05/08/25 10:00 Spironolactone 25 mg DAILY PO 05/08/25 10:00 Laboratory Results Laboratory Tests 05/08/25 05:11 Chemistry Test 05/07/25 13:20 05/08/25 05:11 Albumin 3.3 g/dL (3.2-4.8) 3.1 g/dL (3.2-4.8) L Calcium Level 8.3 mg/dL (8.7-10.4) L 8.0 mg/dL (8.7-10.4) L Magnesium Level 1.6 mg/dL (1.6-2.6) 2.1 mg/dL (1.6-2.6) Phosphorus Level 1.6 mg/dL (2.4-5.1) L 3.6 mg/dL (2.4-5.1) Total Protein 7.0 g/dL (5.7-8.2) 6.4 g/dL (5.7-8.2) LFT Test 05/07/25 13:20 05/08/25 05:11 Alanine Aminotransferase (ALT) 62 U/L (7-40) H 52 U/L (7-40) H Alkaline Phosphatase 104 U/L (46-116) 93 U/L (46-116) Aspartate Amino Transferase (AST) 103 U/L (13-40) H 71 U/L (13-40) H Total Bilirubin 0.4 mg/dL (0.2-1.0) 0.4 mg/dL (0.2-1.0) Urinalysis Test 04/29/25 14:40 Urine Color Yellow (Yellow) Urine Clarity Clear (Clear) Urine pH 7.0 (5.0-9.0) Urine Specific [place] 1.019 (1.001-1.035) Urine Protein Trace (Negative) H Urine Ketones Trace (Negative) Urine Blood Negative /uL (Negative) Urine Nitrite Negative (Negative) Urine Bilirubin Negative (Negative) Urine Urobilinogen Normal mg/dL (Negative) Urine Leukocyte Esterase Trace /uL (Negative) Urine RBC 2 /hpf (0 - 4) Urine Microscopic WBC 5 /HPF (0-5) Urine Squamous Epithelial Cells Few /hpf (<5) Urine Bacteria Few /hpf (None Seen) H Urine Glucose 3+ mg/dL (Normal) H Microbiology Microbiology Date/Time Source Procedure Growth Status 04/26/25 18:18 Stool Ova and Parasites - Final Complete 04/26/25 18:18 Stool - Final Complete 04/21/25 23:52 Blood Blood Culture - Final NO GROWTH AFTER 5 DAYS OF INCUBATION. 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 Juarez on 04/27/2025, biopsy report pending Septic shock secondary to pericolonic abscess Radiology consult for drainage per radiology there is no abscess, but it is a mass, MRI confirms possible pericolonic abscess and possible malignant mass, Cipro Flagyl IV Pericolonic abscess possibly secondary to diverticulitis: Surgical consult by Dr. Juarez appreciated Status post colonoscopy by GI Dr. Zeferino Marti with the following findings: Mass in the proximal descending colon; Trace internal hemorrhoids Chronic microcytic anemia Acute descending colitis Elevated CEA 26 concerning for colonic malignancy Acute complicated diverticulitis Possible history of coronary artery disease Hypertension Diabetes: Insulin sliding scale Hypercholesterolemia Recurrent UTIs Nutrition Clinimix PICC line ordered Post op blood loss anemia expected complication after major surgery: Hemoglobin down from 8.7 to 6.6, transfuse 1 unit of RBC, improved to 7.3 on 05/06/2025, will transfuse 1 unit RBC, hemoglobin improved to 9.2 Time spent 65 minutes Advanced care planning time 20 minutes Patient is full code HAL Nava at bedside Son Cholo [phone] and daughter at bedside Pathology report says adenocarcinoma colon, moderately differentiated, copy of the report given to the patient and also placed in the chart Patient passing flatus but no bowel movement clear liquids per Dr Juarez Plan discussed with: Patient My Orders Orders - SHEKHAR SRIVASTAVA MD Procedure Category Date Status Time Diltiazem Er Capsule PHA 05/08/25 In Process (Cardizem Er Capsul 10:00 Losartan Tablet PHA 05/08/25 In Process (Cozaar Tablet) 10:00 Spironolactone PHA 05/08/25 In Process (Aldactone) 10:00 Date of Service: May 08, 2025 Billing Provider: SHEKHAR SRIVASTAVA MD Common Visit Codes: [id number] INP/OBS CARE(HIGH) SHEKHAR SRIVASTAVA MD May 08, 2025 08:36
[2025-05-08] MEDS: SPIRONOLACTONE 25 MG TAB PO SCH (10:22)
[2025-05-08] MEDS: LOSARTAN POTASSIUM 50 MG TAB PO SCH (10:23)
[2025-05-08] MEDS: dilTIAZem 120MG ER CAP PO SCH (10:24)
--- NOTE | 2025-05-08 10:52 | DVHPN2 ---
Progress Note Date Seen: May 08, 2025 Has the PT tested + for MRSA If YES, has PT been informed?: No Medical Necessity Reason Pt with a Central, PICC or Fol: No Objective vital signs Vital Sign Date Time Temp Pulse Resp B/P (MAP) Pulse Ox O2 Delivery O2 Flow Rate FiO2 05/08/25 10:24 88 141/77 05/08/25 09:00 98.2 17 98 98.2 05/08/25 08:00 Room Air* 0 N/A Nasal Cannula* Total Intake and Output 05/07/25 05/07/25 05/08/25 15:00 23:00 07:00 Intake Total 430 ml 1550 ml 350 ml Output Total 5 ml Balance 425 ml 1550 ml 350 ml medications Current Medications Medications Dose Ordered Sig/Gladys Route Start Time Stop Time Status Last Admin Dose Admin Ondansetron HCl 4 mg Q4HP PRN IV 04/22/25 01:15 05/04/25 19:38 4 MG Acetaminophen 650 mg Q6HP PRN PO 04/22/25 01:15 05/07/25 21:35 650 MG Nitroglycerin 0.4 mg Q5MINP PRN SL 04/22/25 01:15 Insulin Glargine 10 units DAILY@1000 SC 04/22/25 10:00 05/08/25 10:38 10 UNITS Amino Acids/ Electrolytes/ Dextrose 1,000 ml @ 41 mls/hr DAILY@2200 IV 04/22/25 22:00 05/06/25 21:44 41 MLS/HR Potassium Chloride/Dextrose/ Sod Cl 1,000 ml @ 120 mls/hr Q8H20M IV 04/27/25 13:45 05/08/25 04:45 120 MLS/HR Ketorolac Tromethamine 15 mg Q6HPRN PRN IV 04/28/25 03:00 05/03/25 02:59 Cancel Acetaminophen 650 mg Q6HP PRN LA 04/28/25 03:45 Sodium Chloride 10 ml QSHIFT@10,22 IV 04/28/25 22:00 05/08/25 10:22 10 ML Diagnostic Test (Pha) 1 strip AC 04/29/25 11:30 Cancel Insulin Human Regular FOLLOW SLIDING SCALE AC SC 04/29/25 11:30 Cancel Dextrose 50 ml UD IV 04/29/25 09:30 Cancel Diagnostic Test (Pha) 1 strip Q6HR 04/29/25 12:00 05/08/25 05:04 1 STRIP Insulin Human Regular FOLLOW SLIDING SCALE Q6HR SC 04/29/25 12:00 05/08/25 05:04 4 UNITS Dextrose 50 ml UD IV 04/29/25 09:30 Pantoprazole Sodium 40 mg DAILY IV 05/02/25 10:00 05/08/25 10:22 40 MG Hydralazine HCl 10 mg Q6HP PRN IV 05/02/25 11:45 05/07/25 06:53 10 MG Ciprofloxacin 200 ml @ 200 mls/hr BID IV 05/02/25 23:00 05/08/25 10:22 200 MLS/HR Ketorolac Tromethamine 15 mg Q6HPRN PRN IV 05/04/25 08:15 05/09/25 08:14 05/08/25 10:22 15 MG Potassium Chloride 100 ml @ 50 mls/hr Q2H IV 05/05/25 16:00 05/05/25 19:59 Cancel Iron Sucrose 110 ml @ 110 mls/hr DAILY@1200 IV 05/06/25 12:00 05/10/25 12:59 05/07/25 12:01 110 MLS/HR Diltiazem HCl 240 mg DAILY PO 05/08/25 10:00 05/08/25 10:24 240 MG Losartan Potassium 50 mg DAILY PO 05/08/25 10:00 05/08/25 10:23 50 MG Spironolactone 25 mg DAILY PO 05/08/25 10:00 05/08/25 10:22 25 MG laboratory and microbiology Laboratory Tests 05/08/25 05:11 Test 05/08/25 05:11 Range/Units Serum Glucose 157 H 74-106 mg/dL Problem List/Assessment/Plan Problem List/Assessment/Plan 04/24/25 stable but slow blood loss continues, radiologist reviewed ct scan and advised against radiological intervention. she needs a colonoscopy to evaluate for possible tumor, I will order an MRI in case 04/26/25 PATIENT WILL NEED LEFT COLECTOMY, WILL TRY TO GIVE GOLYTELY IN ORDER TO AVOID A COLOSTOMY, OPERATION RISKS AND COMPLICATIONS EXPLAINED IN DETAIL 04/28/25 PATIENT IS ALERT, COOPERATIVE AND ASKS APPROPRIATE QUESTIONS ALL OF WHICH WERE ANSWERED TO HER SATISFACTION, I EXPLAINED OPERATIVE FINDINGS AND WILL TELL HER WHEN MICTOSCOPIC DIAGNOSIS IS AVAILABLE FROM THE PATHOLOGIST, ABDOMEN IS SOFT AND NON DISTENDED, APPROPRIATELY TENDER, NEEDS TOP AMBULATE. 04/30/25 no flatus, no bm, abdomen appropriately tender, wound clean and well approximated, needs to ambulate will dc ngt and allow ice chips 05/01/25 passed flatus, no bm, wound ok, drainage serous, vital signs stable, abdomen appropriately tender, will allow po clear liquids, must ambulate every 4 hours!! 05/05/25 passing flatus, no BM, wound clean and well approximated, drainage serous, abdomen non distended, will allow solids po 05/08/25 doing well, wound okm abdomen non tender, ready for discharge. Plan discussed with: Patient Dietary Evaluation Review Comments: 1. CCHO-60 diet when medically feasible 2. Consider TPN per pharmacy for complete nutrition 3. If GI accessible, and PO not an option, TF Glucerna@55ml/hr providing 79g pro, 1584kcal 1063ml free water Expected Outcomes/Goals: controlled DM, maintain wt COURTNEY BOYD MD May 08, 2025 10:51
--- NOTE | 2025-05-08 12:31 | DVHPN2 ---
Progress Note - Dictate Date Seen: May 08, 2025 Has the PT tested + for MRSA If YES, has PT been informed?: No Medical Necessity Reason Pt with a Central, PICC or Fol: No Subjective Postop day number 11 S/P laparotomy and left hemicolectomy No new complaints, patient resting comfortably NG-tube was removed and patient's diet has been advanced Patient has been passing gas and had a bowel movement Preliminary pathology positive for malignancy, final report reviewed Patient has moderately differentiated adenocarcinoma locally perforated extending to the peritoneal edge 0/12 lymph nodes were positive, report discussed with patient vital signs Vital Sign Date Time Temp Pulse Resp B/P (MAP) Pulse Ox O2 Delivery O2 Flow Rate FiO2 05/08/25 10:24 88 141/77 05/08/25 09:00 98.2 17 98 98.2 05/08/25 08:00 Room Air* 0 N/A Nasal Cannula* Total Intake and Output 05/07/25 05/07/25 05/08/25 15:00 23:00 07:00 Intake Total 430 ml 1550 ml 350 ml Output Total 5 ml Balance 425 ml 1550 ml 350 ml medications Current Medications Medications Dose Ordered Sig/Gladys Route Start Time Stop Time Status Last Admin Dose Admin Ondansetron HCl 4 mg Q4HP PRN IV 04/22/25 01:15 05/04/25 19:38 4 MG Acetaminophen 650 mg Q6HP PRN PO 04/22/25 01:15 05/07/25 21:35 650 MG Nitroglycerin 0.4 mg Q5MINP PRN SL 04/22/25 01:15 Insulin Glargine 10 units DAILY@1000 SC 04/22/25 10:00 05/08/25 10:38 10 UNITS Potassium Chloride/Dextrose/ Sod Cl 1,000 ml @ 120 mls/hr Q8H20M IV 04/27/25 13:45 05/08/25 04:45 120 MLS/HR Ketorolac Tromethamine 15 mg Q6HPRN PRN IV 04/28/25 03:00 05/03/25 02:59 Cancel Acetaminophen 650 mg Q6HP PRN NE 04/28/25 03:45 Sodium Chloride 10 ml QSHIFT@10,22 IV 04/28/25 22:00 05/08/25 10:22 10 ML Diagnostic Test (Pha) 1 strip AC 04/29/25 11:30 Cancel Insulin Human Regular FOLLOW SLIDING SCALE AC SC 04/29/25 11:30 Cancel Dextrose 50 ml UD IV 04/29/25 09:30 Cancel Diagnostic Test (Pha) 1 strip Q6HR 04/29/25 12:00 05/08/25 12:25 1 STRIP Insulin Human Regular FOLLOW SLIDING SCALE Q6HR SC 04/29/25 12:00 05/08/25 12:25 8 UNITS Dextrose 50 ml UD IV 04/29/25 09:30 Pantoprazole Sodium 40 mg DAILY IV 05/02/25 10:00 05/08/25 10:22 40 MG Hydralazine HCl 10 mg Q6HP PRN IV 05/02/25 11:45 05/07/25 06:53 10 MG Ciprofloxacin 200 ml @ 200 mls/hr BID IV 05/02/25 23:00 05/08/25 10:22 200 MLS/HR Ketorolac Tromethamine 15 mg Q6HPRN PRN IV 05/04/25 08:15 05/09/25 08:14 05/08/25 10:22 15 MG Potassium Chloride 100 ml @ 50 mls/hr Q2H IV 05/05/25 16:00 05/05/25 19:59 Cancel Iron Sucrose 110 ml @ 110 mls/hr DAILY@1200 IV 05/06/25 12:00 05/10/25 12:59 05/08/25 11:57 110 MLS/HR Diltiazem HCl 240 mg DAILY PO 05/08/25 10:00 05/08/25 10:24 240 MG Losartan Potassium 50 mg DAILY PO 05/08/25 10:00 05/08/25 10:23 50 MG Spironolactone 25 mg DAILY PO 05/08/25 10:00 05/08/25 10:22 25 MG objective Well-developed well-nourished lady no acute distress Pupils equal and react to light, extraocular movements intact Lungs are clear, CVS S1-S2 regular rate rhythm Abdomen is soft nontender nondistended Extremities without clubbing cyanosis or edema Neuro she is alert oriented x3 with no focal deficit laboratory and microbiology Laboratory Tests 05/08/25 05:11 Test 05/08/25 05:11 Range/Units Serum Glucose 157 H 74-106 mg/dL Problems(with codes): (1) Primary adenocarcinoma of descending colon and splenic flexure (2) Colonic mass (3) Elevated CEA (4) Abnormal finding on GI tract imaging Prognosis Plan Advance diet as tolerated , DISCONTINUE TPN Discharge planning as per hospitalist ; PATIENT IS STABLE FOR DISCHARGE Outpatient follow up with oncology services for further ongoing management Outpatient follow up with GI Services in six months to 12 months for repeat complete colonoscopy Dietary Evaluation Review Comments: 1. CCHO-60 diet when medically feasible 2. Consider TPN per pharmacy for complete nutrition 3. If GI accessible, and PO not an option, TF Glucerna@55ml/hr providing 79g pro, 1584kcal 1063ml free water Expected Outcomes/Goals: controlled DM, maintain wt Plan discussed with: Patient CC Plasma Assessment Blood Product Administration S: [id number] TUNDE ISIDRO MD May 08, 2025 12:31
[2025-05-09 01:00] VITALS: BP 147/66; PULSE 97; RESP 17; TEMP 98.4; O2SAT 93
[2025-05-09 05:00] VITALS: BP 156/81; PULSE 103; RESP 16; TEMP 98.2; O2SAT 95
[2025-05-09 05:04] LABS: Hemoglobin 9.2 g/dL (12.2-16.2)
[2025-05-09 05:06] LABS: Hematocrit 28.3 % (36.0-46.0); Mean Corpuscular Hemoglobin 21.8 pg (28.0-32.0); Mean Corpuscular Volume 66.7 fL (80.0-100.0); Nucleated Red Blood Cells % 0.1 %
[2025-05-09 05:22] LABS: Albumin 3.3 g/dL (3.2-4.8); Alkaline Phosphatase 110 U/L (46-116); Anion Gap 9 (5-15); Carbon Dioxide 23 mmol/L (20-31); Potassium 4.0 mmol/L (3.5-5.1); Sodium 139 mmol/L (136-145); Total Protein 6.8 g/dL (5.7-8.2)
[2025-05-09 05:26] LABS: Chloride 107 mmol/L (98-107); Glucose 124 mg/dL (74-106)
[2025-05-09 05:27] LABS: Alanine Aminotransferase 60 U/L (7-40); BUN/Creatinine Ratio 6.8 (10.0-20.0); Blood Urea Nitrogen < 5 mg/dL (9-23); Calcium 8.4 mg/dL (8.7-10.4)
[2025-05-09 05:37] LABS: Bilirubin, Total 0.4 mg/dL (0.2-1.0)
[2025-05-09 08:00] VITALS: PULSE 110
--- NOTE | 2025-05-09 08:32 | DVHPN2 ---
Reviewed: Care Plan, H&P, Labs, Medications, Previous Orders, Radiology Changes from previous H/P or p: No Changes Eyes: No Pain, No Vision change, No Conjunctivae inflammation, No Eyelid inflammation, No Other, No Redness ENT: No Ear pain, No Ear discharge, No Nose pain, No Nose discharge, No Nose congestion, No Mouth pain, No Mouth swelling, No Throat pain, No Throat swelling, No Other Cardiovascular: No Chest Pain, No Palpitations, No Orthopnea, No Paroxysmal Noc. Dyspnea, No Edema, No Lt Headedness, No Other Respiratory: No Cough, No Dry, No Shortness of breath, No SOB with excertion, No Wheezing, No Hemoptysis, No Pleuritic Pain, No Sputum, No Other Gastrointestinal: Nausea, Vomiting, Abdominal Pain, Constipation Genitourinary: No Dysuria, No Frequency, No Incontinence, No Hematuria, No Retention, No Other Musculoskeletal: No other, No neck pain, No shoulder pain, No arm pain, No back pain, No hand pain, No leg pain, No foot pain Skin: No Rash, No Lesions, No Jaundice, No Bruising, No Other Objective Vitals Vital Signs Date Time Temp Pulse Resp B/P (MAP) Pulse Ox O2 Delivery O2 Flow Rate FiO2 05/09/25 05:00 98.2 103 16 156/81 (106) 95 98.2 05/08/25 20:00 Room Air* 0 N/A Nasal Cannula* Intake/Output Intake and Output 05/09/25 07:00 Intake Total 1630 ml Balance 1630 ml Intake Oral 1430 ml IV Total 200 ml # Voids 8 # Bowel Movements 1 Medications Current Medications Medications Dose Ordered Sig/Gladys Route Start Time Stop Time Status Last Admin Dose Admin Ondansetron HCl 4 mg Q4HP PRN IV 04/22/25 01:15 05/04/25 19:38 4 MG Acetaminophen 650 mg Q6HP PRN PO 04/22/25 01:15 05/08/25 22:04 650 MG Nitroglycerin 0.4 mg Q5MINP PRN SL 04/22/25 01:15 Insulin Glargine 10 units DAILY@1000 SC 04/22/25 10:00 05/08/25 10:38 10 UNITS Potassium Chloride/Dextrose/ Sod Cl 1,000 ml @ 120 mls/hr Q8H20M IV 04/27/25 13:45 05/08/25 04:45 120 MLS/HR Ketorolac Tromethamine 15 mg Q6HPRN PRN IV 04/28/25 03:00 05/03/25 02:59 Cancel Acetaminophen 650 mg Q6HP PRN PA 04/28/25 03:45 Sodium Chloride 10 ml QSHIFT@10,22 IV 04/28/25 22:00 05/08/25 21:43 10 ML Diagnostic Test (Pha) 1 strip AC 04/29/25 11:30 Cancel Insulin Human Regular FOLLOW SLIDING SCALE AC SC 04/29/25 11:30 Cancel Dextrose 50 ml UD IV 04/29/25 09:30 Cancel Diagnostic Test (Pha) 1 strip Q6HR 04/29/25 12:00 05/09/25 05:18 1 STRIP Insulin Human Regular FOLLOW SLIDING SCALE Q6HR SC 04/29/25 12:00 05/09/25 05:19 2 UNITS Dextrose 50 ml UD IV 04/29/25 09:30 Pantoprazole Sodium 40 mg DAILY IV 05/02/25 10:00 05/08/25 10:22 40 MG Hydralazine HCl 10 mg Q6HP PRN IV 05/02/25 11:45 05/07/25 06:53 10 MG Ciprofloxacin 200 ml @ 200 mls/hr BID IV 05/02/25 23:00 05/08/25 21:43 200 MLS/HR Potassium Chloride 100 ml @ 50 mls/hr Q2H IV 05/05/25 16:00 05/05/25 19:59 Cancel Iron Sucrose 110 ml @ 110 mls/hr DAILY@1200 IV 05/06/25 12:00 05/10/25 12:59 05/08/25 11:57 110 MLS/HR Diltiazem HCl 240 mg DAILY PO 05/08/25 10:00 05/08/25 10:24 240 MG Losartan Potassium 50 mg DAILY PO 05/08/25 10:00 05/08/25 10:23 50 MG Spironolactone 25 mg DAILY PO 05/08/25 10:00 05/08/25 10:22 25 MG Laboratory Results Laboratory Tests 05/09/25 04:36 Chemistry Test 05/09/25 04:36 Albumin 3.3 g/dL (3.2-4.8) Calcium Level 8.4 mg/dL (8.7-10.4) L Total Protein 6.8 g/dL (5.7-8.2) LFT Test 05/09/25 04:36 Alanine Aminotransferase (ALT) 60 U/L (7-40) H Alkaline Phosphatase 110 U/L (46-116) Aspartate Amino Transferase (AST) 78 U/L (13-40) H Total Bilirubin 0.4 mg/dL (0.2-1.0) Urinalysis Test 04/29/25 14:40 Urine Color Yellow (Yellow) Urine Clarity Clear (Clear) Urine pH 7.0 (5.0-9.0) Urine Specific [place] 1.019 (1.001-1.035) Urine Protein Trace (Negative) H Urine Ketones Trace (Negative) Urine Blood Negative /uL (Negative) Urine Nitrite Negative (Negative) Urine Bilirubin Negative (Negative) Urine Urobilinogen Normal mg/dL (Negative) Urine Leukocyte Esterase Trace /uL (Negative) Urine RBC 2 /hpf (0 - 4) Urine Microscopic WBC 5 /HPF (0-5) Urine Squamous Epithelial Cells Few /hpf (<5) Urine Bacteria Few /hpf (None Seen) H Urine Glucose 3+ mg/dL (Normal) H Microbiology Microbiology Date/Time Source Procedure Growth Status 04/26/25 18:18 Stool Ova and Parasites - Final Complete 04/26/25 18:18 Stool - Final Complete 04/21/25 23:52 Blood Blood Culture - Final NO GROWTH AFTER 5 DAYS OF INCUBATION. 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 Juarez on 04/27/2025, biopsy report pending Septic shock secondary to pericolonic abscess Radiology consult for drainage per radiology there is no abscess, but it is a mass, MRI confirms possible pericolonic abscess and possible malignant mass, Cipro Flagyl IV Pericolonic abscess possibly secondary to diverticulitis: Surgical consult by Dr. Juarez appreciated Status post colonoscopy by GI Dr. Zeferino Marti with the following findings: Mass in the proximal descending colon; Trace internal hemorrhoids Chronic microcytic anemia Acute descending colitis Elevated CEA 26 concerning for colonic malignancy Acute complicated diverticulitis Possible history of coronary artery disease Hypertension Diabetes: Insulin sliding scale Hypercholesterolemia Recurrent UTIs Nutrition Clinimix PICC line ordered Post op blood loss anemia expected complication after major surgery: Hemoglobin down from 8.7 to 6.6, transfuse 1 unit of RBC, improved to 7.3 on 05/06/2025, will transfuse 1 unit RBC, hemoglobin improved to 9.2 Time spent 65 minutes Advanced care planning time 20 minutes Patient is full code RN Elijah at bedside Son Cholo [phone] and daughter at bedside Pathology report says adenocarcinoma colon, moderately differentiated, copy of the report given to the patient and also placed in the chart For discharge by Dr. Juarez Patient will follow up with the oncologist Dr. Meng as an outpatient in one week for possible chemo, secretory was requested to make an appointment Plan discussed with: Patient My Orders Orders - SHEKHAR SRIVASTAVA MD Procedure Category Date Status Time Communication Order ORDERS 05/09/25 Transmitted 08:23 Date of Service: May 09, 2025 Billing Provider: SHEKHAR SRIVASTAVA MD Common Visit Codes: [id number] INP/OBS CARE(HIGH) SHEKHAR SRIVASTAVA MD May 09, 2025 08:32
[2025-05-09 08:40] VITALS: BP 144/78; PULSE 104; RESP 18; TEMP 98.1; O2SAT 96
--- NOTE | 2025-05-09 08:41 | DVHDS2 ---
Discharge Summary Date of Admission Apr 22, 2025 at 01:03 Date of Discharge: May 09, 2025 Admitting Diagnosis Left lower quadrant abdominal pain Wounds: Left Colectomy and colocolostomy Labs/Diagnostic Data: Laboratory Results Test 05/09/25 04:36 05/08/25 05:11 05/06/25 05:10 04/29/25 14:40 White Blood Count 6.2 10^3/uL (4.4-10.8) Red Blood Count 4.25 10^6/uL (4.0-5.20) Hemoglobin 9.2 g/dL (12.2-16.2) Hematocrit 28.3 % (36.0-46.0) Mean Corpuscular Volume 66.7 fL (80.0-100.0) Mean Corpuscular Hemoglobin 21.8 pg (28.0-32.0) Mean Corpuscular Hemoglobin Concent 32.6 g/dL (32.0-36.0) Red Cell Distribution Width 24.3 % (11.8-14.3) Platelet Count 271 10^3/uL (140-450) Mean Platelet Volume 8.1 fL (6.9-10.8) Neutrophils (%) (Auto) 69.9 % (37.0-80.0) Lymphocytes (%) (Auto) 15.5 % (10.0-50.0) Monocytes (%) (Auto) 12.1 % (0.0-12.0) Eosinophils (%) (Auto) 2.2 % (0.0-7.0) Basophils (%) (Auto) 0.3 % (0.0-2.0) Neutrophils # (Auto) 4.4 10 ^3/uL (1.6-8.6) Lymphocytes # (Auto) 1.0 10 ^3/uL (0.4-5.4) Monocytes # (Auto) 0.8 10 ^3/uL (0-1.3) Eosinophils # (Auto) 0.1 10 ^3/uL (0-0.8) Basophils # (Auto) 0 10 ^3/uL (0-0.2) Nucleated Red Blood Cells 0.1 % Sodium Level 139 mmol/L (136-145) Potassium Level 4.0 mmol/L (3.5-5.1) Chloride Level 107 mmol/L (98-107) Carbon Dioxide Level 23 mmol/L (20-31) Anion Gap 9 (5-15) Blood Urea Nitrogen < 5 mg/dL (9-23) Creatinine 0.74 mg/dL (0.550-1.02) Glomerular Filtration Rate Calc 93 mL/min (>90) BUN/Creatinine Ratio 6.8 (10.0-20.0) Serum Glucose 124 mg/dL (74-106) Calcium Level 8.4 mg/dL (8.7-10.4) Total Bilirubin 0.4 mg/dL (0.2-1.0) Aspartate Amino Transferase (AST) 78 U/L (13-40) Alanine Aminotransferase (ALT) 60 U/L (7-40) Alkaline Phosphatase 110 U/L (46-116) Total Protein 6.8 g/dL (5.7-8.2) Albumin 3.3 g/dL (3.2-4.8) Phosphorus Level 3.6 mg/dL (2.4-5.1) Magnesium Level 2.1 mg/dL (1.6-2.6) Platelet Estimate Adequate Hypochromasia (manual) Moderate Anisocytosis (manual) Moderate Microcytosis Moderate Prealbumin 11.2 md/dL (10.0-40.0) Triglycerides Level 94 mg/dL (< 150) Urine Color Yellow (Yellow) Urine Clarity Clear (Clear) Urine pH 7.0 (5.0-9.0) Urine Specific [place] 1.019 (1.001-1.035) Urine Protein Trace (Negative) Urine Ketones Trace (Negative) Urine Blood Negative /uL (Negative) Urine Nitrite Negative (Negative) Urine Bilirubin Negative (Negative) Urine Urobilinogen Normal mg/dL (Negative) Urine Leukocyte Esterase Trace /uL (Negative) Urine RBC 2 /hpf (0 - 4) Urine Microscopic WBC 5 /HPF (0-5) Urine Squamous Epithelial Cells Few /hpf (<5) Urine Bacteria Few /hpf (None Seen) Urine Glucose 3+ mg/dL (Normal) Test 04/28/25 05:12 04/27/25 13:38 04/26/25 18:18 04/26/25 06:07 Ovalocytes Few Brien Cells Moderate Prothrombin Time 12.7 sec (9.3-11.8) Prothrombin Time INR 1.22 (0.9-1.15) Activated Partial Thromboplast Time 26.2 SEC (24.5-34.5) Stool Occult Blood Positive (Negative) Stool Occult Blood Sample #3 (Negative) Stool for White Cells Rare POC Glucose 155 mg/dl (70-106) Test 04/23/25 10:02 04/21/25 23:52 04/21/25 22:39 Carcinoembryonic Antigen 26.91 ng/mL (<=5.0) Lactic Acid Level 1.1 mmol/L (0.4-2.0) B-Type Natriuretic Peptide 8.76 pg/mL (0-100) Lipase 32 U/L (12-53) Other Laboratory Tests 05/09/25 04:36 Brief Hx & Hospital Course: 59-year-old female came with a left lower quadrant abdominal pain found to have a large left colonic mass by colonoscopy by GI Dr. Zeferino Marti. Patient subsequently underwent: Left colectomy and colocolostomy by . Postop course uneventful. Drain in place patient was treated with the pain medications IV fluids and antibiotics pathology report came positive for adenocarcinoma. Discussed with the patient about the diagnosis and prognosis. The secondary is requested to make an appointment with oncologist Dr Douglas for possible chemotherapy. Patient received blood transfusion for postop anemia. At the time of discharge patient is comfortable ambulatory no abdominal pain vital signs stable afebrile cleared for discharge by surgeon discharged home. Prescription transmitted to the pharmacy she will follow up with the surgeon and oncologist Consults/Reason for consult Surgeon Dr. Juarez GI Dr. Zeferino Marti Operations or Procedures Left colectomy and colocolostomy Colonoscopy Condition at Discharge: Fair Final Diagnosis/Problems List ADENOCARCINOMA DESCENDING COLON STATUS POST COLECTOMY AND COLOCOLOSTOMY POSTOP ANEMIA Discharge Disposition: Home Discharge Instruct/Medications Diet: Cardiac 2g Na,low cholest Activity: Light activity Follow Up/Referral: FOLLOW UP WITH SURGEON DR. JUAREZ IN ONE WEEK FOR DRAIN REMOVAL FOLLOW UP WITH THE ONCOLOGY DR. DOUGLAS IN ONE WEEK FOR CHEMOTHERAPY Medications: TRANSMITTED TO PHARMACY Scheduled Atorvastatin Calcium (Lipitor), 1 TAB PO DAILY, (Reported) Dapagliflozin Propanediol (Farxiga), 1 TAB PO DAILY, (Reported) Diltiazem Hcl (Cardizem La), 1 TAB PO DAILY, (Reported) Dulaglutide (Trulicity), 3 MG SC QWEEKLY, (Reported) Furosemide (Furosemide), 1 TAB PO DAILY, (Reported) Gabapentin (Gabapentin), 1 CAP PO TID, (Reported) Insulin Glargine (Basaglar Kwikpen), 20 UNIT SC QAM, (Reported) Losartan Potassium (Losartan Potassium), 1 TAB PO DAILY, (Reported) Naloxegol Oxalate (Movantik), 1 TAB PO DAILY, (Reported) Spironolactone (Spironolactone), 1 TAB PO DAILY, (Reported) Scheduled PRN Methocarbamol (Methocarbamol), 1 TAB PO TID PRN for muscle spasm, (Reported) Oxycodone W/ Acetaminophen (Percocet 5/325MG), PO Q8HPRN PRN for PAIN SCALE 7 THRU 10, (Reported) 39 (TIME TAKEN FOR DISCHARGE SUMMARY 39 MINUTES) Discharge Statement: "Patient was advised to return to the ER or call 911 if any headaches, dizziness, shortness of breath, chest pain, abdominal pain, bleeding, fevers, or worsening of medical condition. Patient was counseled about treatment plan, medications, possible side effects, patientverbalized understanding. All questions were answered to the best of my ability. This discharge took greater then 30 minutes in planning, reviewing documentation, counseling the patient, and discussing with other team members." ASSESSMENT ASSESSMENT Hospital Course Uneventful Assessment ADENOCARCINOMA DESCENDING COLON STATUS POST COLECTOMY AND COLOCOLOSTOMY POSTOP ANEMIA Date of Service: May 09, 2025 Billing Provider: SHEKHAR SRIVASTAVA MD Common Visit Codes: 80747-INL/OBS DISCH DAY >30min SHEKHAR SRIVASTAVA MD May 09, 2025 08:41
[2025-05-09] MEDS ORDERED: FERR-7 PO (08:42)
[2025-05-09] MEDS ORDERED: DOCU-94 PO (08:42)
[2025-05-09] MEDS ORDERED: CIPR-173 PO (08:42)
[2025-05-09] MEDS ORDERED: HYDR-4902 PO (08:42)
[2025-05-09 10:51] VITALS: BP 144/78; PULSE 104; RESP 18; TEMP 98.1; O2SAT 96
--- NOTE | 2025-05-09 11:51 | DVHPN2 ---
Progress Note Date Seen: May 09, 2025 Has the PT tested + for MRSA If YES, has PT been informed?: No Medical Necessity Reason Pt with a Central, PICC or Fol: No Objective vital signs Vital Sign Date Time Temp Pulse Resp B/P (MAP) Pulse Ox O2 Delivery O2 Flow Rate FiO2 05/09/25 10:51 98.1 104 18 96 05/09/25 10:02 144/78 05/09/25 08:05 Room Air* 0 N/A Nasal Cannula* Total Intake and Output 05/08/25 05/08/25 05/09/25 15:00 23:00 07:00 Intake Total 430 ml 700 ml 500 ml Balance 430 ml 700 ml 500 ml medications Current Medications Medications Dose Ordered Sig/Gladys Route Start Time Stop Time Status Last Admin Dose Admin Ondansetron HCl 4 mg Q4HP PRN IV 04/22/25 01:15 05/04/25 19:38 4 MG Acetaminophen 650 mg Q6HP PRN PO 04/22/25 01:15 05/08/25 22:04 650 MG Nitroglycerin 0.4 mg Q5MINP PRN SL 04/22/25 01:15 Insulin Glargine 10 units DAILY@1000 SC 04/22/25 10:00 05/09/25 10:12 10 UNITS Potassium Chloride/Dextrose/ Sod Cl 1,000 ml @ 120 mls/hr Q8H20M IV 04/27/25 13:45 05/08/25 04:45 120 MLS/HR Ketorolac Tromethamine 15 mg Q6HPRN PRN IV 04/28/25 03:00 05/03/25 02:59 Cancel Acetaminophen 650 mg Q6HP PRN PA 04/28/25 03:45 Sodium Chloride 10 ml QSHIFT@10,22 IV 04/28/25 22:00 05/09/25 10:02 10 ML Diagnostic Test (Pha) 1 strip AC 04/29/25 11:30 Cancel Insulin Human Regular FOLLOW SLIDING SCALE AC SC 04/29/25 11:30 Cancel Dextrose 50 ml UD IV 04/29/25 09:30 Cancel Diagnostic Test (Pha) 1 strip Q6HR 04/29/25 12:00 05/09/25 05:18 1 STRIP Insulin Human Regular FOLLOW SLIDING SCALE Q6HR SC 04/29/25 12:00 05/09/25 05:19 2 UNITS Dextrose 50 ml UD IV 04/29/25 09:30 Pantoprazole Sodium 40 mg DAILY IV 05/02/25 10:00 05/09/25 10:01 40 MG Hydralazine HCl 10 mg Q6HP PRN IV 05/02/25 11:45 05/07/25 06:53 10 MG Ciprofloxacin 200 ml @ 200 mls/hr BID IV 05/02/25 23:00 05/09/25 10:02 200 MLS/HR Potassium Chloride 100 ml @ 50 mls/hr Q2H IV 05/05/25 16:00 05/05/25 19:59 Cancel Iron Sucrose 110 ml @ 110 mls/hr DAILY@1200 IV 05/06/25 12:00 05/10/25 12:59 05/09/25 11:31 110 MLS/HR Diltiazem HCl 240 mg DAILY PO 05/08/25 10:00 05/09/25 10:02 240 MG Losartan Potassium 50 mg DAILY PO 05/08/25 10:00 05/09/25 10:02 50 MG Spironolactone 25 mg DAILY PO 05/08/25 10:00 05/09/25 10:08 25 MG laboratory and microbiology Laboratory Tests 05/09/25 04:36 Test 05/09/25 04:36 Range/Units Serum Glucose 124 H 74-106 mg/dL Problem List/Assessment/Plan Problem List/Assessment/Plan 04/24/25 stable but slow blood loss continues, radiologist reviewed ct scan and advised against radiological intervention. she needs a colonoscopy to evaluate for possible tumor, I will order an MRI in case 04/26/25 PATIENT WILL NEED LEFT COLECTOMY, WILL TRY TO GIVE GOLYTELY IN ORDER TO AVOID A COLOSTOMY, OPERATION RISKS AND COMPLICATIONS EXPLAINED IN DETAIL 04/28/25 PATIENT IS ALERT, COOPERATIVE AND ASKS APPROPRIATE QUESTIONS ALL OF WHICH WERE ANSWERED TO HER SATISFACTION, I EXPLAINED OPERATIVE FINDINGS AND WILL TELL HER WHEN MICTOSCOPIC DIAGNOSIS IS AVAILABLE FROM THE PATHOLOGIST, ABDOMEN IS SOFT AND NON DISTENDED, APPROPRIATELY TENDER, NEEDS TOP AMBULATE. 04/30/25 no flatus, no bm, abdomen appropriately tender, wound clean and well approximated, needs to ambulate will dc ngt and allow ice chips 05/01/25 passed flatus, no bm, wound ok, drainage serous, vital signs stable, abdomen appropriately tender, will allow po clear liquids, must ambulate every 4 hours!! 05/05/25 passing flatus, no BM, wound clean and well approximated, drainage serous, abdomen non distended, will allow solids po 05/08/25 doing well, wound okm abdomen non tender, ready for discharge. 04/08/25 being discharged, instructions given, told patient and her two sons that the tumor was malignant, she needs to return to see me in about 10 days Plan discussed with: Patient, Son Dietary Evaluation Review Comments: 1. CCHO-60 diet when medically feasible 2. Consider TPN per pharmacy for complete nutrition 3. If GI accessible, and PO not an option, TF Glucerna@55ml/hr providing 79g pro, 1584kcal 1063ml free water Expected Outcomes/Goals: controlled DM, maintain wt COURTNEY BOYD MD May 09, 2025 11:51
[2025-05-09] MEDS: InsuLIN REG 1unit/0.01ml Soln (100units/ml) SC SCH (11:59)
[2025-05-09] MEDS: ACCU-CHEK COMFORT CURVE STRIP VI SCH (11:59)
[2025-05-09] MEDS ORDERED: DEXTROSE (50%) 50ML SYRG IV PRN (12:00)
[2025-05-09 12:48] VITALS: BP 152/84; PULSE 88; RESP 17; TEMP 98.1; O2SAT 98
[2025-05-09] MEDS ORDERED: TRAM-626 PO (13:31)
--- NOTE | 2025-05-09 14:46 | DVHPN2 ---
Progress Note - Dictate Date Seen: May 09, 2025 (Time of visit 1:00 p.m.) Has the PT tested + for MRSA If YES, has PT been informed?: No Medical Necessity Reason Pt with a Central, PICC or Fol: No Subjective Postop day number 12 S/P laparotomy and left hemicolectomy No new complaints, patient resting comfortably NG-tube was removed and patient's diet has been advanced Patient has been passing gas and had a bowel movement Preliminary pathology positive for malignancy, final report reviewed Patient has moderately differentiated adenocarcinoma locally perforated extending to the peritoneal edge 0/ lymph nodes were positive, report discussed with patient vital signs Vital Sign Date Time Temp Pulse Resp B/P (MAP) Pulse Ox O2 Delivery O2 Flow Rate FiO2 05/09/25 12:48 98.1 88 17 152/84 (106) 98 98.1 05/09/25 08:05 Room Air* 0 N/A Nasal Cannula* Total Intake and Output 05/08/25 05/08/25 05/09/25 15:00 23:00 07:00 Intake Total 430 ml 700 ml 500 ml Balance 430 ml 700 ml 500 ml medications Current Medications Medications Dose Ordered Sig/Gladys Route Start Time Stop Time Status Last Admin Dose Admin Ketorolac Tromethamine 15 mg Q6HPRN PRN IV 04/28/25 03:00 05/03/25 02:59 Cancel Diagnostic Test (Pha) 1 strip AC 04/29/25 11:30 Cancel Insulin Human Regular FOLLOW SLIDING SCALE AC SC 04/29/25 11:30 Cancel Dextrose 50 ml UD IV 04/29/25 09:30 Cancel Potassium Chloride 100 ml @ 50 mls/hr Q2H IV 05/05/25 16:00 05/05/25 19:59 Cancel objective Well-developed well-nourished lady no acute distress Pupils equal and react to light, extraocular movements intact Lungs are clear, CVS S1-S2 regular rate rhythm Abdomen is soft nontender nondistended Extremities without clubbing cyanosis or edema Neuro she is alert oriented x3 with no focal deficit laboratory and microbiology Laboratory Tests 05/09/25 04:36 Test 05/09/25 04:36 Range/Units Serum Glucose 124 H 74-106 mg/dL Problems(with codes): (1) 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 CCHO-60 diet when medically feasible 2. Consider TPN per pharmacy for complete nutrition 3. If GI accessible, and PO not an option, TF Glucerna@55ml/hr providing 79g pro, 1584kcal 1063ml free water Expected Outcomes/Goals: controlled DM, maintain wt Plan discussed with: Patient CC Plasma Assessment Blood Product Administration S: [id number] TUNDE ISIDRO MD May 09, 2025 14:46
== END 2025-05-09 13:22 | disposition home or self-care (01) | DRG 710 ==
LOC: ER 22:03 → MERGE 04-22 01:03 → OVERFLOW 04-22 01:03 → CENTRAL 04-22 03:51 → TELE-CENTR 04-28 15:03
PROVIDERS: ADMIT Family Medicine; ATTEND Family Medicine
PROC: 0DBL8ZX Excision of Transverse Colon, Via Natural or Artificial Opening Endoscopic, Diagnostic (ICD-10-PCS; 2025-04-25)
PROC: 0DTG0ZZ Resection of Left Large Intestine, Open Approach (ICD-10-PCS; principal; 2025-04-27 11:31)
PROC: 0D1N0Z4 Bypass Sigmoid Colon to Cutaneous, Open Approach (ICD-10-PCS; 2025-04-27 11:31)
PROC: 02HV33Z Insertion of Infusion Device into Superior Vena Cava, Percutaneous Approach (ICD-10-PCS; 2025-04-28)
PROC: B548ZZA Ultrasonography of Superior Vena Cava, Guidance (ICD-10-PCS; 2025-04-28)
PROC: 30233N1 Transfusion of Nonautologous Red Blood Cells into Peripheral Vein, Percutaneous Approach (ICD-10-PCS; 2025-04-29)
DX: A41.9 Sepsis, unspecified organism (principal); R65.21 Severe sepsis with septic shock; N17.0 Acute kidney failure with tubular necrosis; K57.20 Diverticulitis of large intestine with perforation and abscess without bleeding; R71.0 Precipitous drop in hematocrit; E87.1 Hypo-osmolality and hyponatremia; C18.6 Malignant neoplasm of descending colon; E78.00 Pure hypercholesterolemia, unspecified; I25.10 Atherosclerotic heart disease of native coronary artery without angina pectoris; E11.40 Type 2 diabetes mellitus with diabetic neuropathy, unspecified; K21.9 Gastro-esophageal reflux disease without esophagitis; K27.9 Peptic ulcer, site unspecified, unspecified as acute or chronic, without hemorrhage or perforation; G47.00 Insomnia, unspecified; M47.816 Spondylosis without myelopathy or radiculopathy, lumbar region; K42.9 Umbilical hernia without obstruction or gangrene; K52.89 Other specified noninfective gastroenteritis and colitis; N18.9 Chronic kidney disease, unspecified; E11.22 Type 2 diabetes mellitus with diabetic chronic kidney disease; I12.9 Hypertensive chronic kidney disease with stage 1 through stage 4 chronic kidney disease, or unspecified chronic kidney disease; G89.29 Other chronic pain; K64.8 Other hemorrhoids; K59.00 Constipation, unspecified; K63.9 Disease of intestine, unspecified; Z88.5 Allergy status to narcotic agent; Z79.4 Long term (current) use of insulin; Z82.49 Family history of ischemic heart disease and other diseases of the circulatory system; Z87.440 Personal history of urinary (tract) infections
CPT/HCPCS: 36415; 36430; 36569; 71045; 72195; 74176; 74181; 76775; 76937; 80053; 81001; 82040; 82270; 82378; 82962; 83605; 83690; 83735; 83880; 84100; 84478; 85025; 85048; 85610; 85730; 86850; 86900; 86901; 86920; 87040; 87177; 93306; 96361; 96365; 96368; 97110; 97116; 97163; 99291; G0378; J0131; J1756; J1815; J1885; J2250; J2405; J2470; J2704; J3490; J7060